=== PATIENT | male | born 1940 | race Caucasian/White ===

== ENCOUNTER 2016-07-07 14:02 | Emergency (ER) | payer MEDICARE, BC ==
[~2016-07-07] VITALS: Ht 182.9 cm; Wt 87.0 kg
[~2016-07-07 14:02] MED LIST: ASPI325T PO; METO25TA3 PO; PLAV75TA29 PO; SIMV40TA PO; VITA100064 PO
[2016-07-07 14:08] VITALS: BP_SYST 185; BP_DIAS 11; BP_DIAS 114; PULSE 94; RESP 17; TEMP 98.3; O2SAT 98
[2016-07-07] MEDS ORDERED: PLAV75TA29 PO (14:18)
[2016-07-07] MEDS ORDERED: ASPI1TAB69 PO (14:29)
[2016-07-07] MEDS ORDERED: TETANUS/DIPHTHERIA TOXOID ADULT 0.5 ML VIAL IM ONE (14:30)
[2016-07-07] MEDS ORDERED: LIDOCAINE 1%/EPINEPHrine 1:100,000 SOLN 20 ML VIAL INFIL ONE (14:30)
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
[2016-07-07 15:19] LABS: AUTOMATED NEUTROPHIL # 4.8 TH/MM3 (1.8-7.7); BASOPHIL % 0.4 % (0.0-2.0); EOSINOPHIL # 0.2 TH/MM3 (0-0.4); EOSINOPHIL % 2.3 % (0.0-4.0); HEMATOCRIT 40.1 % (39.0-51.0); HEMO FLAGS DIFF FINAL; LYMPHOCYTE # 1.9 TH/MM3 (1.0-4.8); MEAN CELL VOLUME 94.3 FL (80.0-100.0); MEAN CORPUSCULAR HEMOGLOBIN 31.3 PG (27.0-34.0); MEAN CORPUSCULAR HGB CONC 33.2 % (32.0-36.0); MONO % 7.5 % (0.0-8.0); NEUT % 63.8 % (16.0-70.0); PLATELET COUNT 139 TH/MM3 (150-450); RED BLOOD COUNT 4.26 MIL/MM3 (4.50-5.90); RED CELL DISTRIBUTION WIDTH 13.5 % (11.6-17.2); WHITE BLOOD COUNT 7.5 TH/MM3 (4.0-11.0)
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
--- NOTE | 2016-07-07 15:27 | RADRPT ---
EXAM DATE/TIME: 07/07/2016 15:11 [facility] COMPARISON: No previous studies available for comparison. INDICATIONS : Left knee laceration from fall. MEDICAL HISTORY : None. SURGICAL HISTORY : None. ENCOUNTER: Initial ACUITY: 1 day PAIN SCORE: 0/10 LOCATION: Left knee. FINDINGS: There is no evidence for fracture, radiopaque foreign body or intra-articular air. Moderate vascular chest is noted. CONCLUSION: Negative for foreign body or fracture. Percy Rocha MD FACR on July 07, 2016 at 15:25 Board Certified Radiologist. This report was verified electronically.
--- NOTE | 2016-07-07 15:28 | RADRPT ---
EXAM DATE/TIME: 07/07/2016 15:06 [facility] COMPARISON: No previous studies available for comparison. INDICATIONS : Chest pain. MEDICAL HISTORY : None. SURGICAL HISTORY : CABG. Stent. ENCOUNTER: Initial ACUITY: 1 day PAIN SCORE: 5/10 LOCATION: Bilateral chest FINDINGS: The heart is enlarged. Very mild interstitial edema is present. There is no alveolar consolidation, pleural effusion or pneumothorax. Degenerative changes are seen about both shoulders. CONCLUSION: CARDIOMEGALY WITH MILD INTERSTITIAL EDEMA. Percy Rocha MD FACR on July 07, 2016 at 15:26 Board Certified Radiologist. This report was verified electronically.
[2016-07-07 15:31] LABS: PROTHROMBIN TIME - PATIENT 11.6 SEC (9.8-11.6)
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
[2016-07-07 15:56] VITALS: BP 155/67; PULSE 58; RESP 16; O2SAT 96
== END 2016-07-07 17:05 | disposition home or self-care (01) ==
LOC: NEPE 14:02
DX: S09.90XA Unspecified injury of head, initial encounter (principal); S01.112A Laceration without foreign body of left eyelid and periocular area, initial encounter; S80.02XA Contusion of left knee, initial encounter; W17.89XA Other fall from one level to another, initial encounter; V19.3XXA Pedal cyclist (driver) (passenger) injured in unspecified nontraffic accident, initial encounter; Y93.55 Activity, bike riding; Y92.481 Parking lot as the place of occurrence of the external cause; Z79.82 Long term (current) use of aspirin; Z23 Encounter for immunization
CPT/HCPCS: 12011; 70450; 70486; 71010; 72125; 72170; 73564; 85025; 85610; 85730; 90471; 90714

== ENCOUNTER 2016-07-12 15:22 | Emergency (ER) | payer MEDICARE, BC ==
[~2016-07-12] VITALS: Ht 182.9 cm; Wt 85.0 kg
[~2016-07-12 15:22] MED LIST changes: +ASPI1TAB69 PO; -ASPI325T PO
[2016-07-12 15:25] VITALS: BP 190/80; PULSE 59; RESP 14; TEMP 98.2; O2SAT 98
--- NOTE | 2016-07-12 15:55 | PD ---
HPI Chief Complaint: Wound/Suture/Staple Re-Check Time Seen by Provider: 15:54 Travel History International Travel<30 days: No Contact w/Intl Traveler<30days: No Traveled to known affect area: No History of Present Illness HPI 76-year-old male presents to the emergency department for stitches removal. Patient had 3 sutures placed the left eyebrow 5 days ago the emergency department. He denies any complications. No drainage. No fevers. He denies any new falls. He denies any complaints at this time. PFSH Past Medical History Hx Anticoagulant Therapy: Yes (ASA 81 MG , PLAVIX ) Cardiovascular Problems: Yes High Cholesterol: Yes Diabetes: Yes Diminished Hearing: No Hypertension: Yes Past Surgical History Cardiac Surgery: Yes (CABG, stent) Social History Alcohol Use: No Tobacco Use: No Substance Use: No Allergies-Medications (Allergen,Severity, Reaction): Coded Allergies: Alcohol (Verified Allergy, Severe, "MAKES ME CRAZY", 07/12/16) Penicillin (Verified Allergy, Severe, Rash, 07/12/16) Reported Meds & Prescriptions Reported Meds & Active Scripts Active Reported Aspirin 81 Mg Tabdr 162 Mg PO BID Plavix (Clopidogrel Bisulfate) 75 Mg Tab 75 Mg PO DAILY Vitamin D (Cholecalciferol) 1,000 Unit Tab 400 Units PO DAILY Metoprolol Tartrate 25 Mg Tab 25 Mg PO DAILY Simvastatin 40 Mg Tab 40 Mg PO HS Plavix (Clopidogrel Bisulfate) 75 Mg Tab 75 Mg PO DAILY Review of Systems Except as stated in HPI: all other systems reviewed are Neg Physical Exam Narrative GENERAL: Well-developed well-nourished male patient, ambulatory. Afebrile. SKIN: Warm and dry. Patient has healing laceration to the left eyebrow with 3 sutures and Steri-Strips in place. HEAD: Normocephalic. Atraumatic. EYES: No scleral icterus. No injection or drainage. NECK: Supple, trachea midline. No JVD or lymphadenopathy. CARDIOVASCULAR: Regular rate and rhythm without murmurs, gallops, or rubs. RESPIRATORY: Breath sounds equal bilaterally. No accessory muscle use. Lungs sounds are clear to auscultation. MUSCULOSKELETAL: No cyanosis, or edema. Data Data Last Documented VS Vital Signs Date Time Temp Pulse Resp B/P Pulse Ox O2 Delivery O2 Flow Rate FiO2 07/12/16 15:25 98.2 59 14 190/80 98 [facility] Medical Decision Making Medical Screen Exam Complete: Yes Emergency Medical Condition: Yes Medical Record Reviewed: Yes Differential Diagnosis suture removal versus dehiscence versus cellulitis Narrative Course 76-year-old male presents to the emergency department for suture removal. Patient had 3 sutures placed 5 days ago in the emergency department. He denies any complication or other complaints at this time. Sutures removed without difficulty. Patient is instructed on proper wound care. Diagnosis Primary Impression: Visit for suture removal Referrals: Primary Care Physician as needed Patient Instructions: General Instructions, Stitches Removal (ED) Additional Instructions: Clean gently with soap and water twice daily and apply [id number] antibiotic ointment. Follow-up with your primary care physician as needed. Return to the emergency department for any acute worsening of symptoms. Med/Other Pt SpecificInfo: No Change to Meds Disposition: 01 DISCHARGE HOME Condition: Stable Micaela Glaser Jul 12, 2016 15:55
== END 2016-07-12 16:10 | disposition home or self-care (01) ==
LOC: NEPB 15:22
DX: Z48.02 Encounter for removal of sutures (principal)
CPT/HCPCS: 99281

== ENCOUNTER 2016-07-16 14:36 | Emergency (ER) | payer MEDICARE, BC ==
[~2016-07-16] VITALS: Ht 182.9 cm; Wt 86.0 kg
[2016-07-16 14:41] VITALS: BP 203/83; PULSE 59; RESP 18; TEMP 97.7; O2SAT 98
[2016-07-16] MEDS ORDERED: hydrALAZINE HCL 20 MG/ML VIAL IV PUSH ONE (15:30)
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
[2016-07-16 16:52] VITALS: BP 138/63; PULSE 52; RESP 18; O2SAT 95
--- NOTE | 2016-07-16 17:50 | RADRPT ---
EXAM DATE/TIME: 07/16/2016 17:44 [facility] COMPARISON: CT BRAIN W/O CONTRAST, July 07, 2016, 14:54. INDICATIONS : Fall with right sided head hematoma today; multiple recent falls. RADIATION DOSE: 51.47 CTDIvol (mGy) MEDICAL HISTORY : Hypertension. SURGICAL HISTORY : None. ENCOUNTER: Initial ACUITY: 1 day PAIN SCALE: 6/10 LOCATION: Right cranial TECHNIQUE: Multiple contiguous axial images were obtained of the head. Using automated exposure control and adj ustment of the mA and/or kV according to patient size, radiation dose was kept as low as reasonably a chievable to obtain optimal diagnostic quality images. FINDINGS: CEREBRUM: The ventricles are normal for age. No evidence of midline shift, mass lesion, hemorrhage or acute in farction. No extra-axial fluid collections are seen. POSTERIOR FOSSA: The cerebellum and brainstem are intact. The 4th ventricle is midline. The cerebellopontine angle i s unremarkable. EXTRACRANIAL: The visualized portion of the orbits is intact. SKULL: The calvaria is intact. No evidence of skull fracture. CONCLUSION: Normal examination for a patient of this age. No significant change has occurred. Wellington Yee MD on July 16, 2016 at 17:48 Board Certified Radiologist. This report was verified electronically.
[2016-07-16] MEDS ORDERED: ACET325T PO (18:16)
[2016-07-16 18:17] VITALS: BP 169/71; PULSE 56; RESP 18; O2SAT 96
--- NOTE | 2016-07-16 19:18 | EKG ---
Date Performed: 07/16/2016 Time Performed: 16:27:19 PTAGE: 76 years EKG: Significant baseline artifact obscures underlying rhythm SINUS BRADYCARDIA WITH SINUS ARRHY THMIA Versus nonconducted premature atrial contractions WITH FIRST DEGREE AV BLOCK NONSPECIFIC T-WAVE ABNORMALITY ABNORMAL ECG COMPARED TO PRIOR ELECTROCARDIOGRAM, irregular rhythm is present. PREVIOUS TRACING : 05/06/2016 12.15 DOCTOR: Tay Chambers Interpretating Date/Time 07/16/2016 19:17:13
== END 2016-07-16 19:18 | disposition home or self-care (01) ==
LOC: NEPC 14:36
DX: S09.90XA Unspecified injury of head, initial encounter (principal); S00.03XA Contusion of scalp, initial encounter; I10 Essential (primary) hypertension; R94.31 Abnormal electrocardiogram [ECG] [EKG]; I25.10 Atherosclerotic heart disease of native coronary artery without angina pectoris; E78.00 Pure hypercholesterolemia, unspecified; E11.9 Type 2 diabetes mellitus without complications; Z79.01 Long term (current) use of anticoagulants; Z79.82 Long term (current) use of aspirin; Z91.81 History of falling; W18.39XA Other fall on same level, initial encounter; Y92.481 Parking lot as the place of occurrence of the external cause
CPT/HCPCS: 70450; 93005

== ENCOUNTER 2017-05-25 23:03 | Observation (INO) | payer MEDICARE, BC ==
[~2017-05-25] VITALS: Ht 182.9 cm; Wt 70.8 kg
[~2017-05-25 23:03] MED LIST changes: +ACET325T PO
[2017-05-25 23:05] VITALS: BP 184/92; PULSE 74; RESP 16; TEMP 97.8; O2SAT 98
--- NOTE | 2017-05-25 23:36 | PD ---
HPI Chief Complaint: Edema Time Seen by Provider: 23:28 Travel History International Travel<30 days: No Contact w/Intl Traveler<30days: No Traveled to known affect area: No History of Present Illness HPI The patient is a 77 year old male who presents to the [facility] emergency department with a history of reportedly bumping his legs on the coffee table yesterday and having difficulty stopping the bleeding. He reports that he saw his primary care physician, Dr. Laws earlier today and was told to come to the emergency department for evaluation and treatment. The patient lives at home alone. The patient denies having a home health nurse to come out to visit him. He is noted to have lower extremity edema. He reports that this is worse than usual. He denies having any chest pain, chest pressure, or shortness of breath. He denies having any abdominal pain, vomiting, or diarrhea. The patient reports that he is chronically anticoagulated on Xarelto and Plavix. He reports that he's been on Plavix for years, however newly placed on Xarelto 3 months ago. He is unsure why. The patient does have a prior history of stroke approximately 6 months ago with some difficulty speaking related to this. He reports that he does use a walker when he exercises, however otherwise she does not use a cane or walker. On review of systems, the patient denies having any known recent fevers, cough, congestion, neck pain, urinary symptoms, or neurologic symptoms. [facility] Past Medical History Narrative Medical The patient's past medical history is significant for stroke 6 months ago with residual speech problems, CHF, CAD with 3 vessel bypass and a stent placement, history of a valve replacement, hyperlipidemia, diabetes mellitus, hypertension. PcP: Dr. Wesley Laws Thread Clipper: Dr. Díaz. Hx Anticoagulant Therapy: Yes Cardiac Catheterization: Yes Cardiovascular Problems: Yes High Cholesterol: Yes Cerebrovascular Accident: Yes (CVA) Diabetes: Yes Patient Takes Glucophage: No Diminished Hearing: No Hypertension: Yes Musculoskeletal: Yes ([place]) Past Surgical History Narrative Surgical The patient's past surgical history is significant for coronary artery bypass grafting of 3 vessels, history of coronary artery stenting, history of valve replacement. Cardiac Surgery: Yes (VALVE REPLACEMENT) Coronary Artery Bypass Graft: Yes (X4) Coronary Stent: Yes Social History Alcohol Use: No Tobacco Use: No Substance Use: No Allergies-Medications (Allergen,Severity, Reaction): Coded Allergies: alcohol (Unverified Allergy, Severe, "MAKES ME CRAZY", 05/25/17) penicillin G (Unverified Allergy, Severe, Rash, 05/25/17) Reported Meds & Prescriptions Reported Meds & Active Scripts Active Acetaminophen 325 Mg Tab 325 Mg PO Q4-6H PRN Reported Aspirin 81 Mg Tabdr 162 Mg PO BID Vitamin D3 (Cholecalciferol) 1,000 Unit Tab 400 Units PO DAILY Metoprolol Tartrate 25 Mg Tab 25 Mg PO DAILY Simvastatin 40 Mg Tab 40 Mg PO HS Plavix (Clopidogrel Bisulfate) 75 Mg Tab 75 Mg PO DAILY Review of Systems Except as stated in HPI: all other systems reviewed are Neg General / Constitutional: No: Fever Eyes: No: Visual changes HENT: No: Headaches Cardiovascular: Positive: Edema, No: Chest Pain or Discomfort, Dyspnea on exertion Respiratory: No: Cough, Shortness of Breath Gastrointestinal: No: Nausea, Vomiting, Diarrhea, Abdominal Pain, Changes in Bowel Habits, Indigestion, Loss of Appetite Genitourinary: No: Dysuria Musculoskeletal: Positive: Edema, No: Pain Skin: No Rash Neurologic: No: Weakness, Focal Abnormalities, Change in Mentation, Slurred Speech, Sensory Disturbance Psychiatric: No: Depression Endocrine: No: Polydipsia Hematologic/Lymphatic: No: Easy Bruising Physical Exam Narrative General: The patient is a well-developed well-nourished male in no acute distress. Head and Neck exam: Head is normocephalic atraumatic. Eyes: EOMI, pupils are equal round and reactive to light. Nose: Midline septum with pink mucous membranes Mouth: Dentition unremarkable. Moist mucus membranes. Posterior oropharynx is not erythematous. No tonsillar hypertrophy. Uvula midline. Airway patent. Neck: No palpable lymphadenopathy. No nuchal rigidity. No thyromegaly. Cardiovascular: Irregularly irregular with rate control in the 50s to 60s with a 2/6 systolic murmur. No gallops or rubs. Lungs: Clear to auscultation bilaterally. No wheezes, rhonchi, or rales. Abdomen: Soft, without tenderness to palpation in all 4 quadrants of the abdomen. No guarding, rebound, or rigidity. Normal bowel sounds are audible. No tenderness on palpation of McBurney's point. Extremities: No clubbing or cyanosis. The patient has 1-2+ pitting edema bilateral lower extremities. The patient has an abrasion to the right anterior garcía with crusted blood, no active bleeding. 2+ pulses in all 4 extremities. Negative Homans sign. No palpable cords. Back: No costovertebral angle tenderness to palpation. Neurologic Exam: Cranial nerves 2-12 were intact on exam. Strength is 5/5 in all 4 extremities. No sensory deficits noted. The patient is slow to answer questions related to prior speech deficits from a stroke, however the patient is intelligible on examination. Skin Exam: No rash noted. Intact skin that is warm and dry. Data Data Last Documented VS Vital Signs Date Time Temp Pulse Resp B/P (MAP) Pulse Ox O2 Delivery O2 Flow Rate FiO2 05/26/17 02:00 68 16 116/55 (75) 100 Room Air 05/25/17 23:05 97.8 Orders Orders Electrocardiogram (05/25/17 23:34) Complete Blood Count With Diff (05/25/17 23:34) Comprehensive Metabolic Panel (05/25/17 23:34) Creatine Kinase (Cpk) (05/25/17 23:34) Ckmb (Isoenzyme) Profile (05/25/17 23:34) Troponin I (05/25/17 23:34) B-Type Natriuretic Peptide (05/25/17 23:34) Prothrombin Time / Inr (Pt) (05/25/17 23:34) Act Partial Throm Time (Ptt) (05/25/17 23:34) Magnesium (Mg) (05/25/17 23:34) Thyroid Stimulating Hormone (05/25/17 23:34) Chest, Single Ap (05/25/17 23:34) Iv Access Insert/Monitor (05/25/17 23:34) Ecg Monitoring (05/25/17 23:34) Oximetry (05/25/17 23:34) Us Leg Venous Doppler Bilat (05/26/17 23:34) Furosemide Inj (Lasix Inj) (05/26/17 01:30) Admit Order (Ed Use Only) (05/26/17 02:16) Nitroglycerin 2% Oint (Nitroglycerin 2% (05/26/17 02:30) Labs Laboratory Tests Test 05/25/17 23:50 White Blood Count 5.2 TH/MM3 Red Blood Count 3.35 MIL/MM3 Hemoglobin 11.0 GM/DL Hematocrit 32.4 % Mean Corpuscular Volume 96.8 FL Mean Corpuscular Hemoglobin 33.0 PG Mean Corpuscular Hemoglobin Concent 34.1 % Red Cell Distribution Width 14.0 % Platelet Count 165 TH/MM3 Mean Platelet Volume 9.0 FL Neutrophils (%) (Auto) 59.0 % Lymphocytes (%) (Auto) 27.0 % Monocytes (%) (Auto) 9.1 % Eosinophils (%) (Auto) 4.1 % Basophils (%) (Auto) 0.8 % Neutrophils # (Auto) 3.1 TH/MM3 Lymphocytes # (Auto) 1.4 TH/MM3 Monocytes # (Auto) 0.5 TH/MM3 Eosinophils # (Auto) 0.2 TH/MM3 Basophils # (Auto) 0.0 TH/MM3 CBC Comment DIFF FINAL Differential Comment Prothrombin Time 15.3 SEC Prothromb Time International Ratio 1.5 RATIO Activated Partial Thromboplast Time 39.6 SEC Blood Urea Nitrogen 22 MG/DL Creatinine 1.26 MG/DL Random Glucose 93 MG/DL Total Protein 6.3 GM/DL Albumin 3.5 GM/DL Calcium Level 8.5 MG/DL Magnesium Level 2.6 MG/DL Alkaline Phosphatase 63 U/L Aspartate Amino Transf (AST/SGOT) 25 U/L Alanine Aminotransferase (ALT/SGPT) 26 U/L Total Bilirubin 0.4 MG/DL Sodium Level 141 MEQ/L Potassium Level 4.7 MEQ/L Chloride Level 106 MEQ/L Carbon Dioxide Level 27.8 MEQ/L Anion Gap 7 MEQ/L Estimat Glomerular Filtration Rate 55 ML/MIN Total Creatine Kinase 66 U/L Troponin I LESS THAN 0.02 NG/ML B-Type Natriuretic Peptide 405 PG/ML Thyroid Stimulating Hormone 3rd Gen 1.710 uIU/ML MDM Medical Decision Making Medical Screen Exam Complete: Yes Emergency Medical Condition: Yes Medical Record Reviewed: Yes Interpretation(s) Last Impressions Chest X-Ray 05/25/17 [id number] Signed Impressions: Service Date/Time: Thursday, May 25, 2017 23:49 - CONCLUSION: Single view rotated exam demonstrating no definite acute cardiopulmonary disease. René Mayberry MD Differential Diagnosis CHF exacerbation, versus DVT, versus hypoalbuminemia, versus valvular abnormality of the veins of the legs causing peripheral edema Narrative Course During the course of the patients emergency department visit, the patients history, examination, and differential diagnosis were reviewed with the patient. The patient was placed on a cardiac exercise specialist with oximetry and frequent blood pressure monitoring. The patient had IV access obtained and blood work sent for analysis. The patient had an ECG done on arrival. The patient's ECG reveals atrial fibrillation with a slow ventricular response at 59, nonspecific T-wave abnormalities, no acute ST segment elevation. QRS duration is 98 ms, QTC 435 ms. an ultrasound of bilateral lower extremities was ordered. A chest x -ray was ordered. The patient was initially provided Lasix 40 mg IV. The patients laboratory studies were reviewed and remarkable for a CMP that shows a BUN of 22, GFR 55, magnesium 2.6, initial set of cardiac enzymes are within normal limits, BNP is elevated at 405, TSH 1.71, PT 15.3, PTT 39.6. A CBC that is remarkable for hemoglobin of 11, monocytes 9.1 Radiology studies were reviewed and remarkable for a chest x-ray that shows no acute cardiopulmonary disease. An ultrasound that shows no evidence of DVT bilaterally. The patients results were discussed with the patient, including the plan of care. I explained that further testing and/ or monitoring is indicated based on the patients history, examination, and/ or laboratory findings. Therefore, I recommended admission for additional evaluation. The patient expressed understanding and was agreeable with this plan. The patient was admitted to the hospital in stable condition and sent to a bed under the care of the [facility] service. Physician Communication Physician Communication The patient's case including history, pertinent physical examination findings, and laboratory studies were discussed with Dr. Tobar. It was agreed that the patient would be admitted to the [facility] service. Diagnosis Primary Impression: A-fib Qualified Codes: I48.91 - Unspecified atrial fibrillation Additional Impression: Acute exacerbation of congestive heart failure Qualified Codes: I50.9 - Heart failure, unspecified Admitting Information Admitting Physician Requests: Cathy Martinez MD May 25, 2017 23:36
[2017-05-26] VITALS (8 sets, daily range): BP systolic 113–147; BP diastolic 55–67; PULSE 49–71; RESP 16–20; TEMP 97.1–98.4; O2SAT 96–100
[2017-05-26 00:01] LABS: AUTOMATED NEUTROPHIL # 3.1 TH/MM3 (1.8-7.7); BASOPHIL % 0.8 % (0.0-2.0); EOSINOPHIL # 0.2 TH/MM3 (0-0.4); EOSINOPHIL % 4.1 % (0.0-4.0); HEMATOCRIT 32.4 % (39.0-51.0); HEMO FLAGS DIFF FINAL; LYMPHOCYTE # 1.4 TH/MM3 (1.0-4.8); MEAN CELL VOLUME 96.8 FL (80.0-100.0); MEAN CORPUSCULAR HGB CONC 34.1 % (32.0-36.0); MONO % 9.1 % (0.0-8.0); PLATELET COUNT 165 TH/MM3 (150-450); RED BLOOD COUNT 3.35 MIL/MM3 (4.50-5.90); WHITE BLOOD COUNT 5.2 TH/MM3 (4.0-11.0)
[2017-05-26 00:10] LABS: APTT (PATIENT) 39.6 SEC (24.3-30.1); INTERNATIONAL NORMALIZED RATIO 1.5 RATIO; PROTHROMBIN TIME - PATIENT 15.3 SEC (9.8-11.6)
--- NOTE | 2017-05-26 00:11 | RADRPT ---
EXAM DATE/TIME: 05/25/2017 23:49 [facility] COMPARISON: CHEST SINGLE AP, July 07, 2016, 15:06. INDICATIONS : Chest pain and swelling MEDICAL HISTORY : Hypertension. SURGICAL HISTORY : None. ENCOUNTER: Initial ACUITY: 1 day PAIN SCORE: 7/10 LOCATION: Bilateral chest FINDINGS: A single view of the chest demonstrates the lungs to be symmetrically aerated without evidence of mas s, infiltrate or effusion. The cardiomediastinal contours are unremarkable. Osseous structures are intact. The patient is status post median sternotomy for bypass grafting procedure. Artificial heart valve is present. Patient is mildly rotated to the left. CONCLUSION: Single view rotated exam demonstrating no definite acute cardiopulmonary disease. René Mayberry MD on May 26, 2017 at 0:09 Board Certified Radiologist. This report was verified electronically.
[2017-05-26 00:21] LABS: ALT (GPT) 26 U/L (12-78); ANION GAP 7 MEQ/L (5-15); AST (GOT) 25 U/L (15-37); BICARBONATE 27.8 MEQ/L (21.0-32.0); BLOOD UREA NITROGEN 22 MG/DL (7-18); CHLORIDE 106 MEQ/L (98-107); GLOMERULAR FILTRATION RATE 55 ML/MIN (>89); MAGNESIUM 2.6 MG/DL (1.5-2.5); POTASSIUM 4.7 MEQ/L (3.5-5.1); SODIUM (NA) 141 MEQ/L (136-145)
[2017-05-26 00:36] LABS: ALKALINE PHOSPHATASE 63 U/L (45-117); CREATINE KINASE 66 U/L (39-308); TOTAL BILIRUBIN ADULT 0.4 MG/DL (0.2-1.0)
--- NOTE | 2017-05-26 01:09 | RADRPT ---
EXAM DATE/TIME: 05/26/2017 00:40 [facility] COMPARISON: No previous studies available for comparison. INDICATIONS : Bilateral leg swelling. MEDICAL HISTORY : Hypercholesterolemia. Hypertension. CVA. Diabetes. Anticoagulant therapy, Xarelto. SURGICAL HISTORY : CABGCoronary artery stent. Cardiac cath. Valve replacement. ENCOUNTER: Initial ACUITY: 1 day PAIN SCORE: 0/10 LOCATION: Bilateral leg. TECHNIQUE: Venous ultrasound of the left and right leg was performed from the inguinal ligament to the proximal calf. Real-time, color Doppler and spectral tracing, compression and augmentation techniques were us ed. FINDINGS: RIGHT LEG: There is normal compressibility of the deep venous system from the inguinal region to the proximal ca lf. No echogenic clot is seen in the lumen of the common femoral, femoral, popliteal, and posterior tibial veins. There is a normal response of the venous system to proximal and distal augmentation an d respiration. LEFT LEG: There is normal compressibility of the deep venous system from the inguinal region to the proximal ca lf. No echogenic clot is seen in the lumen of the common femoral, femoral, popliteal, and posterior tibial veins. There is a normal response of the venous system to proximal and distal augmentation an d respiration. CONCLUSION: No deep venous thrombosis. René Mayberry MD on May 26, 2017 at 1:07 Board Certified Radiologist. This report was verified electronically.
[2017-05-26] MEDS ORDERED: FUROSEMIDE 40 MG/4 ML VIAL IV PUSH ONE (01:30)
[2017-05-26] MEDS ORDERED: MAGNESIUM HYDROXIDE SUSP 30 ML CUP PO PRN (02:30)
[2017-05-26] MEDS ORDERED: MORPHINE SULFATE 4 MG/ML INJ IV PUSH PRN (02:30)
[2017-05-26] MEDS ORDERED: SENNOSIDES 8.6 MG TAB PO PRN (02:30)
[2017-05-26] MEDS ORDERED: ACETAMINOPHEN 325 MG TAB PO PRN (02:30)
[2017-05-26] MEDS ORDERED: NITROGLYCERIN 2% OINT 1 GM PACKET TOPICAL ONE (02:30)
[2017-05-26] MEDS ORDERED: ACETAMINOPHEN/HYDROcodone 325 MG/5 MG TAB PO PRN (02:30)
[2017-05-26] MEDS ORDERED: LACTULOSE SYRUP 20 GM/30 ML CUP PO PRN (02:30)
[2017-05-26] MEDS ORDERED: BISACODYL 10 MG SUPP RECTAL PRN (02:30)
[2017-05-26] MEDS ORDERED: SODIUM CHLORIDE 0.9% FLUSH 10 ML FLUSH IV FLUSH PRN (02:30)
[2017-05-26] MEDS ORDERED: ONDANSETRON HCL 4 MG/2 ML VIAL IVP PRN (02:30)
--- NOTE | 2017-05-26 02:39 | HHI.HP ---
[facility] ([place] Mai Laws MD Admission Diagnosis ChF exacerbation, afib Diagnoses: (1) CHF (congestive heart failure) Diagnosis: Principal (2) A-fib Diagnosis: Principal (3) HTN (hypertension) Diagnosis: Principal Travel History International Travel<30 Days: No Contact w/Intl Traveler <30 Da: No Traveled to Known Affected Are: No History of Present Illness This is a 77-year-old male with a PMH of HTN, A-fib on Xarelto, CHF (Unknown EF) , CAD, h/o CVA w/ Expressive Aphasia and DM who presented to the ER w/ complaints of bilateral lower extremity edema x2 days, seen by PCP and referred to the ER for further eval. States he follows w/ Dr. Díaz as outpatient, started on Xarelto few months ago for h/o A-fib, no other changes to medications. No c/o chest pain or SOB. On arrival, pt noted to be in A-fib, rate controlled. BP 184/92, HR 74, O2 sat 98% on RA, Afebrile. Chemistry at baseline. Troponin 0.02. BNP 405. INR 1.5. CXR with no acute findings. LE Doppler negative for DVT. S/p Lasix IV in ER. Review of Systems Except as stated in HPI: all other systems reviewed are Neg ROS: 14 point review of systems otherwise negative. Past Family Social History Past Medical History PMH: HTN, A-fib on Xarelto, CHF (Unknown EF), CAD, h/o CVA w/ Expressive Aphasia and DM Past Surgical History PAST SURGICAL HISTORY: Valve Replacement, CABG Allergies: Coded Allergies: alcohol (Unverified Allergy, Severe, "MAKES ME CRAZY", 05/25/17) penicillin G (Unverified Allergy, Severe, Rash, 05/25/17) Family History PAST FAMILY HISTORY: Reviewed. No h/o DM or CAD Social History PAST SOCIAL HISTORY: Negative for alcohol, tobacco or drugs. Physical Exam Vital Signs Vital Signs Date Time Temp Pulse Resp B/P (MAP) Pulse Ox O2 Delivery O2 Flow Rate FiO2 05/25/17 23:05 97.8 74 16 184/92 (122 98 Physical Exam PE: GENERAL: Elderly white male in no acute distress, slow to speak +expressive aphasia, at baseline. HEENT: PERRLA, EOMI. No scleral icterus or conjunctival pallor. No lid lag or facial droop. CARDIOVASCULAR: Regular rate and rhythm. No obvious murmurs to auscultation. No chest tenderness to palpation. RESPIRATORY: No obvious rhonchi or wheezing. Clear to auscultation. Breath sounds equal bilaterally. GASTROINTESTINAL: Abdomen soft, non-tender, nondistended. BS normal. MUSCULOSKELETAL: Extremities without clubbing, cyanosis. 2+ edema. No obvious deformities. NEUROLOGICAL: Awake, alert and oriented x4. No focal neurologic deficits. Moving both upper and lower extremities spontaneously. Laboratory Laboratory Tests Test 05/25/17 23:50 White Blood Count 5.2 Red Blood Count 3.35 Hemoglobin 11.0 Hematocrit 32.4 Mean Corpuscular Volume 96.8 Mean Corpuscular Hemoglobin 33.0 Mean Corpuscular Hemoglobin Concent 34.1 Red Cell Distribution Width 14.0 Platelet Count 165 Mean Platelet Volume 9.0 Neutrophils (%) (Auto) 59.0 Lymphocytes (%) (Auto) 27.0 Monocytes (%) (Auto) 9.1 Eosinophils (%) (Auto) 4.1 Basophils (%) (Auto) 0.8 Neutrophils # (Auto) 3.1 Lymphocytes # (Auto) 1.4 Monocytes # (Auto) 0.5 Eosinophils # (Auto) 0.2 Basophils # (Auto) 0.0 CBC Comment DIFF FINAL Differential Comment Prothrombin Time 15.3 Prothromb Time International Ratio 1.5 Activated Partial Thromboplast Time 39.6 Blood Urea Nitrogen 22 Creatinine 1.26 Random Glucose 93 Total Protein 6.3 Albumin 3.5 Calcium Level 8.5 Magnesium Level 2.6 Alkaline Phosphatase 63 Aspartate Amino Transf (AST/SGOT) 25 Alanine Aminotransferase (ALT/SGPT) 26 Total Bilirubin 0.4 Sodium Level 141 Potassium Level 4.7 Chloride Level 106 Carbon Dioxide Level 27.8 Anion Gap 7 Estimat Glomerular Filtration Rate 55 Total Creatine Kinase 66 Troponin I LESS THAN 0.02 B-Type Natriuretic Peptide 405 Thyroid Stimulating Hormone 3rd Gen 1.710 Result Diagram: 05/25/17234905/25/172349 Caprini VTE Risk Assessment Caprini VTE Risk Assessment: Mod/High Risk (score >= 2) Caprini Risk Assessment Model Point Value = 1 Point Value = 2 Point Value = 3 Point Value = 5 Age 41-60 Minor surgery BMI > 25 kg/m2 Swollen legs Varicose veins or History of unexplained or recurrent spontaneous Oral contraceptives or hormone replacement Sepsis (< 1 month) Serious lung disease, including pneumonia (< 1 month) Abnormal pulmonary function Acute myocardial infarction Congestive heart failure (< 1 month) History of inflammatory bowel disease Medical patient at bed rest Age 61-74 Arthroscopic surgery Major open surgery (> 45 min) Laparoscopic surgery (> 45 min) Malignancy Confined to bed (> 72 hours) Immobilizing plaster cast Central venous access Age >= 75 History of VTE Family history of VTE Factor V Leiden Prothrombin [id number] Lupus anticoagulant Anticardiolipin antibodies Elevated serum homocysteine Heparin-induced thrombocytopenia Other congenital or acquired thrombophilia Stroke (< 1 month) Elective arthroplasty Hip, pelvis, or leg fracture Acute spinal cord injury (< 1 month) Prophylaxis Regimen Total Risk Factor Score Risk Level Prophylaxis Regimen 0-1 Low Early ambulation 2 Moderate Order ONE of the following: *Sequential Compression Device (SCD) *Heparin 5000 units SQ BID 3-4 Higher Order ONE of the following medications: *Heparin 5000 units SQ TID *Enoxaparin/Lovenox 40 mg SQ daily (WT < 150 kg, CrCl > 30 mL/min) *Enoxaparin/Lovenox 30 mg SQ daily (WT < 150 kg, CrCl > 10-29 mL/min) *Enoxaparin/Lovenox 30 mg SQ BID (WT < 150 kg, CrCl > 30 mL/min) AND/OR *Sequential Compression Device (SCD) 5 or more Highest Order ONE of the following medications: *Heparin 5000 units SQ TID (Preferred with Epidurals) *Enoxaparin/Lovenox 40 mg SQ daily (WT < 150 kg, CrCl > 30 mL/min) *Enoxaparin/Lovenox 30 mg SQ daily (WT < 150 kg, CrCl > 10-29 mL/min) *Enoxaparin/Lovenox 30 mg SQ BID (WT < 150 kg, CrCl > 30 mL/min) AND *Sequential Compression Device (SCD) Assessment and Plan Problem List: (1) CHF (congestive heart failure) ICD Code: I50.9 - Heart failure, unspecified (2) A-fib ICD Code: I48.91 - Unspecified atrial fibrillation (3) HTN (hypertension) ICD Code: I10 - Essential (primary) hypertension Assessment and Plan A/P: 1. CHF: Acute on Chronic. Unknown EF. BNP 405, +lower extremity edema, CXR w / no acute findings, images reviewed by me. Check Echo. S/p Lasix in ER, continue w/ diuresis, monitor I/O. 2. A-fib: Chronic. Rate controlled. Currently on Xarelto. While in ER, HR 40-50's, will hold Metoprolol for now. Follows w/ Dr. Díaz as outpatient, consult for further evaluation. 3. HTN: BP 184/92, HR 74 on arrival, monitor BP. 4. DVT Prophylaxis: Resume home Xarelto 5. Social work for d/c planning as needed. 6. Case discussed w/ ER physician at length. Daksha Tobar MD May 26, 2017 02:39
[2017-05-26] MEDS ORDERED: DEXTROSE 50% IN WATER 50 ML VIAL(D50) IV PUSH PRN (05:15)
[2017-05-26] MEDS ORDERED: GLUCAGON 1 MG/ML VIAL OTHER PRN (05:15)
[2017-05-26] MEDS: SODIUM CHLORIDE 0.9% FLUSH 10 ML FLUSH IV FLUSH SCH ×2 (09:00→21:00)
[2017-05-26] MEDS ORDERED: RIVAROXABAN 10 MG TAB PO SCH (09:00)
[2017-05-26] MEDS: DOCUSATE SODIUM 50 MG/SENNA 8.6 MG TAB PO SCH (09:33)
--- NOTE | 2017-05-26 14:26 | PD.CONS ---
HPI Service Cardiology Consult Requested By Dr Tobar Reason for Consult Atrial fibrillation Primary Care Physician Robert Laws MD (Vipin) History of Present Illness The patient is a 77 year old male with a cardiac history of stroke, atrial fibrillation, carotid stenosis, ASHD, moderate AI and AVR. The patient presented to the hospital for difficulty stopping bleeding after hitting his leg on the coffee table. Per the patient, he was taking Plavix and Xarelto. Per our records from the office, he was prescribed Xarelto and Plavix had been discontinued. The patient live at home and doses his own medications. The patient also complained of BLE edema. Work up revealed increased increased BNP. HR was noted to be low and metoprolol was stopped. Today, on evaluation, his primary complaint is BLE edema. He denies CP or SOB. H/H stable. (Mary Delgado) Review of Systems Consitutional: DENIES: Fatigue, Fever, Chills, Weight gain, Weight loss Eyes: DENIES: Amaurosis Fugax, Change in vision HEENT: DENIES: Lightheadedness, Change in hearing Respiratory: DENIES: See HPI, Cough, Snoring, Shortness of breath, Wheezing, Sputum production Cardiovascular: DENIES: See HPI, Chest pain, Palpitations, Syncope, Tachycardia Gastrointestinal: DENIES: Nausea, Vomiting, Change in bowel habits, Reflux, Bloody stools, Melena Genitourinary: DENIES: Urinary incontinence, Difficulty voiding Integumentary: DENIES: Rash Neurologic: DENIES: Tingling or numbness, Memory problems, Poor Balance, Stroke symptoms Musculoskeletal: DENIES: Joint pain, Muscle pain, Limited range of motion, Back pain Psychiatric: DENIES: Anxiety, Depression, Sleep disturbances Hematologic: COMPLAINS OF: Bleeding tendencies, DENIES: Bruising tendencies Endocrine: DENIES: Weight gain, Weight loss, Thyroid disease (Mary Delgado ) Past Family Social History Allergies: Coded Allergies: alcohol (Unverified Allergy, Severe, "MAKES ME CRAZY", 05/25/17) penicillin G (Unverified Allergy, Severe, Rash, 05/25/17) Past Medical History ASHD AVR AI HTN Carotid stenosis Stroke Atrial fibrillation Angina HLD Past Surgical History CABG 2004 adn 2013 AVR 2013 stent 2010 Reported Medications Reported Meds & Active Scripts Active Acetaminophen 325 Mg Tab 325 Mg PO Q4-6H PRN Reported Aspirin 81 Mg Tabdr 162 Mg PO BID Vitamin D3 (Cholecalciferol) 1,000 Unit Tab 400 Units PO DAILY Metoprolol Tartrate 25 Mg Tab 25 Mg PO DAILY Simvastatin 40 Mg Tab 40 Mg PO HS Plavix (Clopidogrel Bisulfate) 75 Mg Tab 75 Mg PO DAILY Active Ordered Medications Current Medications Medications (Trade) Dose Ordered Sig/Mark Route Start Time Stop Time Status Last Admin (Xarelto) 10 mg DAILY PO 05/26/17 09:00 05/26/17 09:33 (NS Flush) 2 ml UNSCH PRN IV FLUSH 05/26/17 02:30 (NS Flush) 2 ml BID IV FLUSH 05/26/17 09:00 05/26/17 09:00 (Zofran Inj) 4 mg Q6H PRN IVP 05/26/17 02:30 (Tylenol) 650 mg Q6H PRN PO 05/26/17 02:30 ([place] 5-325 Mg) 1 tab Q4H PRN PO 05/26/17 02:30 (Morphine Inj) 2 mg Q3H PRN IV PUSH 05/26/17 02:30 (Ilda-Colace) 1 tab BID PO 05/26/17 09:00 05/26/17 09:33 (Milk Of Magnesia Liq) 30 ml Q12H PRN PO 05/26/17 02:30 (Senokot) 17.2 mg Q12H PRN PO 05/26/17 02:30 (Dulcolax Supp) 10 mg DAILY PRN RECTAL 05/26/17 02:30 (Lactulose Liq) 30 ml DAILY PRN PO 05/26/17 02:30 (Pravachol) 80 mg HS PO 05/26/17 21:00 (D50w (Vial) Inj) 50 ml UNSCH PRN IV PUSH 05/26/17 05:15 (Glucagon Inj) 1 mg UNSCH PRN OTHER 05/26/17 05:15 (Pneumovax-23 Inj) 25 mcg ONCE ONCE IM 05/27/17 10:00 05/27/17 10:01 Family History non contributory Social History lives alone No ETOH or smoking (Mary Delgado) Physical Exam Vital Signs Vital Signs Date Time Temp Pulse Resp B/P (MAP) Pulse Ox O2 Delivery O2 Flow Rate FiO2 05/26/17 12:36 97.1 62 18 126/60 (82) 99 05/26/17 08:37 97.2 57 18 147/67 (93) 98 05/26/17 04:15 97.5 64 18 113/55 (74) 99 05/26/17 04:00 05/26/17 03:00 65 16 147/67 (93) 100 Room Air 05/26/17 02:00 68 16 116/55 (75) 100 Room Air 05/26/17 01:00 49 16 130/60 (83) 100 Room Air 05/25/17 23:05 97.8 74 16 184/92 (122) 98 Physical Exam GENERAL: Elderly male sitting u pin thechair SKIN: Warm and dry. HEAD: Atraumatic. Normocephalic. EYES: Pupils equal and round. No scleral icterus. ENT: No nasal bleeding or discharge. NECK: Trachea midline. CARDIOVASCULAR: Irreg irreg, BLE edema 1+ RESPIRATORY: No accessory muscle use. Clear to auscultation. Breath sounds equal bilaterally. GASTROINTESTINAL: Abdomen soft, non-tender, nondistended. MUSCULOSKELETAL: Extremities without clubbing, cyanosis, NEUROLOGICAL: Awake and alert. Aphasia PSYCHIATRIC: Appropriate mood and affect; insight and judgment normal. Laboratory Laboratory Tests Test 05/25/17 23:50 05/26/17 07:03 05/26/17 12:10 White Blood Count 5.2 Red Blood Count 3.35 Hemoglobin 11.0 Hematocrit 32.4 Mean Corpuscular Volume 96.8 Mean Corpuscular Hemoglobin 33.0 Mean Corpuscular Hemoglobin Concent 34.1 Red Cell Distribution Width 14.0 Platelet Count 165 Mean Platelet Volume 9.0 Neutrophils (%) (Auto) 59.0 Lymphocytes (%) (Auto) 27.0 Monocytes (%) (Auto) 9.1 Eosinophils (%) (Auto) 4.1 Basophils (%) (Auto) 0.8 Neutrophils # (Auto) 3.1 Lymphocytes # (Auto) 1.4 Monocytes # (Auto) 0.5 Eosinophils # (Auto) 0.2 Basophils # (Auto) 0.0 CBC Comment DIFF FINAL Differential Comment Prothrombin Time 15.3 Prothromb Time International Ratio 1.5 Activated Partial Thromboplast Time 39.6 Blood Urea Nitrogen 22 Creatinine 1.26 Random Glucose 93 Total Protein 6.3 Albumin 3.5 Calcium Level 8.5 Magnesium Level 2.6 Alkaline Phosphatase 63 Aspartate Amino Transf (AST/SGOT) 25 Alanine Aminotransferase (ALT/SGPT) 26 Total Bilirubin 0.4 Sodium Level 141 Potassium Level 4.7 Chloride Level 106 Carbon Dioxide Level 27.8 Anion Gap 7 Estimat Glomerular Filtration Rate 55 Total Creatine Kinase 66 Troponin I LESS THAN 0.02 LESS THAN 0.02 LESS THAN 0.02 B-Type Natriuretic Peptide 405 Thyroid Stimulating Hormone 3rd Gen 1.710 (Mary Delgado) Result Diagram: 05/25/17234905/25/172349 Imaging Last 72 hours Impressions Lower Extremity Ultrasound 05/26/172333 Signed Impressions: Service Date/Time: Friday, May 26, 2017 00:40 - CONCLUSION: No deep venous thrombosis. René Mayberry MD Chest X-Ray 05/25/172333 Signed Impressions: Service Date/Time: Thursday, May 25, 2017 23:49 - CONCLUSION: Single view rotated exam demonstrating no definite acute cardiopulmonary disease. René Mayberry MD (Mary Delgado) Assessment and Plan Assessment and Plan Atrial fibrillation and carotid stenosis with history of stroke Iatrogenic bradycardia, HR improved since metoprolol discontinued New diastolic CHF exacerbation ASHD AVR Moderate AI EF 52% 11/2016 PLAN: Continue Xarelto 15 mg PO daily Continue Lasix 20 mg daily Follow up BMP We will follow up with patient in 1-2 weeks after discharge. The patient needs home health care. Concerned about medication reconciliation and compliance. The patient was seen and evaluated by Dr Díaz who completed face to face encounter, physical exam and participated in evaluation and management. (Mary Delgado) Assessment and Plan The exam, history, and the medical decision-making described in the above note were completed with the assistance of the mid-level provider. I reviewed and agree with the findings presented. I attest that I had a [id number] encounter with the patient on the same day, and personally performed and documented my assessment and findings in the medical record. Frail male, mild confusion /h/o of stroke. (Brett Díaz MD) Mary Delgado May 26, 2017 14:26 Brett Díaz MD May 27, 2017 14:44
--- NOTE | 2017-05-26 18:20 | EKG ---
Date Performed: 05/25/2017 Time Performed: 23:46:40 PTAGE: 77 years EKG: ATRIAL FIBRILLATION WITH SLOW VENTRICULAR RESPONSE NONSPECIFIC T-WAVE ABNORMALITY ABNORMAL RHYTHM ECG Compared to PREVIOUS TRACING , patient now converted to atrial fibrillation. PREVIOUS TRACIN2016 16.27 DOCTOR: Brett Díaz Interpretating Date/Time 05/26/2017 18:19:20
[2017-05-26] MEDS ORDERED: PRAVASTATIN SOD 80 MG TAB PO SCH (21:00)
[2017-05-27] MEDS: DOCUSATE SODIUM 50 MG/SENNA 8.6 MG TAB PO SCH ×2 (00:05→08:25)
[2017-05-27 00:12] VITALS: BP 145/65; PULSE 58; RESP 17; TEMP 98.2; O2SAT 96
[2017-05-27 01:08] VITALS: BP 165/78; PULSE 83; RESP 18; TEMP 98; O2SAT 97
[2017-05-27 01:14] VITALS: PULSE 63
[2017-05-27] MEDS ORDERED: NITROGLYCERIN 0.4 MG SL 25 TABS/BTL SL PRN (01:30)
[2017-05-27 02:15] LABS: AUTOMATED NEUTROPHIL # 3.2 TH/MM3 (1.8-7.7); BASOPHIL % 0.4 % (0.0-2.0); EOSINOPHIL # 0.3 TH/MM3 (0-0.4); EOSINOPHIL % 5.9 % (0.0-4.0); HEMATOCRIT 34.4 % (39.0-51.0); HEMO FLAGS DIFF FINAL; MEAN CORPUSCULAR HEMOGLOBIN 32.5 PG (27.0-34.0); MEAN CORPUSCULAR HGB CONC 33.9 % (32.0-36.0); MONO % 7.6 % (0.0-8.0); NEUT % 65.1 % (16.0-70.0); PLATELET COUNT 167 TH/MM3 (150-450); RED BLOOD COUNT 3.58 MIL/MM3 (4.50-5.90); RED CELL DISTRIBUTION WIDTH 14.1 % (11.6-17.2); WHITE BLOOD COUNT 4.9 TH/MM3 (4.0-11.0)
[2017-05-27 02:38] LABS: ALT (GPT) 22 U/L (12-78); ANION GAP 6 MEQ/L (5-15); AST (GOT) 19 U/L (15-37); BICARBONATE 31.1 MEQ/L (21.0-32.0); BLOOD UREA NITROGEN 21 MG/DL (7-18); CHLORIDE 104 MEQ/L (98-107); GLOMERULAR FILTRATION RATE 56 ML/MIN (>89); SODIUM (NA) 141 MEQ/L (136-145)
[2017-05-27 02:41] LABS: ALKALINE PHOSPHATASE 68 U/L (45-117); TOTAL BILIRUBIN ADULT 0.5 MG/DL (0.2-1.0)
[2017-05-27 02:43] LABS: CREATINE KINASE 44 U/L (39-308)
[2017-05-27 04:30] VITALS: BP 143/65; PULSE 77; RESP 17; TEMP 98.4; O2SAT 96
[2017-05-27] MEDS: SODIUM CHLORIDE 0.9% FLUSH 10 ML FLUSH IV FLUSH SCH (08:23)
[2017-05-27] MEDS ORDERED: FUROSEMIDE 20 MG TAB PO SCH (09:00)
[2017-05-27] MEDS ORDERED: RIVAROXABAN 15 MG TAB PO SCH (09:00)
--- NOTE | 2017-05-27 09:06 | HHI.FF ---
Face to Face Verification Diagnosis: (1) CHF (congestive heart failure) (2) A-fib (3) HTN (hypertension) (4) Diastolic CHF Physical Therapy Order: Evaluate and Treat, Improve ambulation, Strength and gait training Home Health Nursing Order: Medical education Signs/symptoms of disease process CHF education Medication education-adverse effect Nursing assessment with vital signs I have seen patient Bryan Albarran on 05/27/17. My clinical findings support the need for the requested home health care services because: Med compliance is questionable Limited ability to care for self Need for psychosocial assistance I certify that my clinical findings support that this patient is homebound because: Need for psychosocial assistance Poor cardiac reserve Frank Jefferson MD May 27, 2017 09:06
[2017-05-27 09:10] VITALS: BP 146/67; PULSE 71; RESP 18; TEMP 98; O2SAT 98
[2017-05-27] MEDS ORDERED: PNEUMOCOCCAL POLYVALENT INJ 25 MCG/0.5 ML SYR IM ONE (10:00)
[2017-05-27] MEDS ORDERED: XARE15TA PO (12:03)
[2017-05-27] MEDS ORDERED: ASPI1TAB57 PO (12:03)
[2017-05-27] MEDS ORDERED: FURO20TA PO (12:03)
--- NOTE | 2017-05-27 12:04 | HHI.PR ---
Subjective Remarks Patient reports he is feeling much better. He agreed to have home health care. Objective Vitals Vital Signs Date Time Temp Pulse Resp B/P (MAP) Pulse Ox O2 Delivery O2 Flow Rate FiO2 05/27/17 09:10 98.0 71 18 146/67 (93) 98 05/27/17 04:30 98.4 77 17 143/65 (91) 96 05/27/17 01:14 63 05/27/17 01:08 98.0 83 18 165/78 (107) 97 05/27/17 00:12 98.2 58 17 145/65 (91) 96 05/26/17 20:30 98.4 71 17 141/63 (89) 96 05/26/17 16:50 97.9 62 20 123/59 (80) 100 05/26/17 12:36 97.1 62 18 126/60 (82) 99 I/O 05/26/17 05/26/17 05/26/17 05/27/17 05/27/17 05/27/17 07:00 15:00 23:00 07:00 15:00 23:00 Intake Total 480 ml 240 ml 240 ml Output Total 1800 ml Balance -1320 ml 240 ml 240 ml Intake Oral 480 ml 240 ml 240 ml Output Urine Total 1800 ml # Voids 3 3 Result Diagram: 05/27/1720205/27/17202 Imaging Last Impressions Lower Extremity Ultrasound 05/26/172333 Signed Impressions: Service Date/Time: Friday, May 26, 2017 00:40 - CONCLUSION: No deep venous thrombosis. René Mayberry MD Chest X-Ray 05/25/172333 Signed Impressions: Service Date/Time: Thursday, May 25, 2017 23:49 - CONCLUSION: Single view rotated exam demonstrating no definite acute cardiopulmonary disease. René Mayberry MD Objective Remarks GENERAL: This is a well-nourished, well-developed patient, in no apparent distress. CARDIOVASCULAR: Normal rate and regular rhythm without murmurs, gallops, or rubs. RESPIRATORY: Good respiratory efforts. Breath sounds equal and clear to auscultation bilaterally. GASTROINTESTINAL: Abdomen soft, non-tender, non-distended. Normal active bowel sounds MUSCULOSKELETAL: Extremities without cyanosis, trace bilateral LE edema. NEURO: Alert & Oriented x4 to person, place, time, situation. Moves all ext x4 PSYCH: Appropriate mood and affect. A/P Problem List: (1) CHF (congestive heart failure) ICD Code: I50.9 - Heart failure, unspecified (2) A-fib ICD Code: I48.91 - Unspecified atrial fibrillation (3) HTN (hypertension) ICD Code: I10 - Essential (primary) hypertension Assessment and Plan 77-year-old male admitted for new diastolic CHF exacerbation. The patient was followed by his sisal picker Dr. Díaz. He received IV Lasix in the emergency room with good response. He was transitioned to oral Lasix. His bilateral lower extremity edema significantly improved. Patient also has atrial fibrillation. He is discharged on Imdur, Ranexa, Lasix and metoprolol. He will follow up outpatient with his sisal picker. Patient is discharged with home health to ensure medication compliance and teaching. Discharge Planning Discharge home in good condition with [facility] Activity: Regular as tolerated Diet: Heart healthy Meds: Per med rec Follow-up: With PCP and cardiology. Frank Jefferson MD May 27, 2017 12:04
--- NOTE | 2017-05-27 12:51 | ECHRPT ---
Indication: CONCLUSIONS The left ventricular systolic function is mildly reduced with an estimated ejection fraction in the range of 45- 50%. Mild mitral valve regurgitation. Probable bioprosthetic valve, appears well seated. Moderate paravalvular aortic regurgitation. There is mild tricuspid valve regurgitation. BP: / HR: Rhythm: MEASUREMENTS (Male / Female) Normal Values Technical Quality:Good 2D ECHO LV Diastolic Diameter PLAX 4.6 cm 4.2 - 5.9 / 3.9 - 5.3 cm LV Systolic Diameter PLAX 3.6 cm IVS Diastolic Thickness 1.7 cm 0.6 - 1.0 / 0.6 - 0.9 cm LVPW Diastolic Thickness 1.1 cm 0.6 - 1.0 / 0.6 - 0.9 cm LV Relative Wall Thickness 0.6 RV Internal Dim ED PLAX 2.3 cm LVOT Diameter 2.4 cm M-MODE Aortic Root Diameter MM 3.7 cm LA Systolic Diameter MM 4.7 cm LA Ao Ratio MM 1.3 AV Cusp Separation MM 1.5 cm DOPPLER AV Peak Velocity 220.0 cm/s AV Peak Gradient 19.4 mmHg AV Mean Gradient 9.0 mmHg AV Velocity Time Integral 43.2 cm AI Peak Velocity 277.0 cm/s AI Peak Gradient 30.7 mmHg AI Pressure Half Time 506.0 ms LVOT Peak Velocity 67.7 cm/s LVOT Peak Gradient 1.8 mmHg LVOT Velocity Time Integral 13.7 cm AV Area Cont Eq vti 1.4 cm AV Area Cont Eq pk 1.4 cm LV E' Lateral Velocity 6.5 cm/s LV E' Septal Velocity 5.8 cm/s TR Peak Velocity 312.0 cm/s TR Peak Gradient 38.9 mmHg Right Atrial Pressure 10.0 mmHg Pulmonary Artery Systolic Pressu 48.9 mmHg Right Ventricular Systolic Press 48.9 mmHg FINDINGS LEFT VENTRICLE The left ventricular systolic function is mildly reduced with an estimated ejection fraction in the range of 45- 50%. Normal left ventricular size. There is assymetric septal hypertrophy. RIGHT VENTRICLE Normal right ventricular size and systolic function. LEFT ATRIUM The left atrial size is mildly dilated. RIGHT ATRIUM The right atrial size is normal. ATRIAL SEPTUM Normal atrial septal thickness. AORTA The aortic root and proximal ascending aorta are normal in size on limited imaging. MITRAL VALVE Calcification of both mitral valve leaflets. Mild thickening of the mitral valve leaflets. Mild mitral valve regurgitation. No mitral valve stenosis. AORTIC VALVE Probable bioprosthetic valve, appears well seated No aortic stenosis Moderate paravalvular aortic regurgitation TRICUSPID VALVE There is mild tricuspid valve regurgitation. Structurally normal tricuspid valve. No tricuspid valve stenosis. PULMONARY VALVE No pulmonary valve regurgitation or stenosis. VESSELS The inferior vena cava is normal in size. PERICARDIUM No pericardial effusion. Tereso Minor DO (Electronically Signed) Final Date:27 May 2017 12:51
--- NOTE | 2017-05-27 14:26 | PD.CARD.PN ---
Subjective Subjective Remarks Discussed case with the RN. Patient complained of CP last night. He was taking Ranexa and isosorbide at home. Objective Medications Current Medications Medications (Trade) Dose Ordered Sig/Mark Route Start Time Stop Time Status Last Admin (NS Flush) 2 ml UNSCH PRN IV FLUSH 05/26/17 02:30 (NS Flush) 2 ml BID IV FLUSH 05/26/17 09:00 05/27/17 08:23 (Zofran Inj) 4 mg Q6H PRN IVP 05/26/17 02:30 (Tylenol) 650 mg Q6H PRN PO 05/26/17 02:30 ([place] 5-325 Mg) 1 tab Q4H PRN PO 05/26/17 02:30 (Morphine Inj) 2 mg Q3H PRN IV PUSH 05/26/17 02:30 (Ilda-Colace) 1 tab BID PO 05/26/17 09:00 05/27/17 08:25 (Milk Of Magnesia Liq) 30 ml Q12H PRN PO 05/26/17 02:30 (Senokot) 17.2 mg Q12H PRN PO 05/26/17 02:30 (Dulcolax Supp) 10 mg DAILY PRN RECTAL 05/26/17 02:30 (Lactulose Liq) 30 ml DAILY PRN PO 05/26/17 02:30 (Pravachol) 80 mg HS PO 05/26/17 21:00 05/27/17 00:05 (D50w (Vial) Inj) 50 ml UNSCH PRN IV PUSH 05/26/17 05:15 (Glucagon Inj) 1 mg UNSCH PRN OTHER 05/26/17 05:15 (Xarelto) 15 mg DAILY PO 05/27/17 09:00 05/27/17 08:25 (Lasix) 20 mg DAILY PO 05/27/17 09:00 05/27/17 08:25 (Nitrostat Sl) 0.4 mg Q5M PRN SL 05/27/17 01:30 Vital Signs / I&O Vital Signs Date Time Temp Pulse Resp B/P (MAP) Pulse Ox O2 Delivery O2 Flow Rate FiO2 05/27/17 09:10 98.0 71 18 146/67 (93) 98 05/27/17 04:30 98.4 77 17 143/65 (91) 96 05/27/17 01:14 63 05/27/17 01:08 98.0 83 18 165/78 (107) 97 05/27/17 00:12 98.2 58 17 145/65 (91) 96 05/26/17 20:30 98.4 71 17 141/63 (89) 96 05/26/17 16:50 97.9 62 20 123/59 (80) 100 I/O 05/26/17 05/26/17 05/26/17 05/27/17 05/27/17 05/27/17 07:00 15:00 23:00 07:00 15:00 23:00 Intake Total 480 ml 240 ml 240 ml 360 ml Output Total 1800 ml Balance -1320 ml 240 ml 240 ml 360 ml Intake Oral 480 ml 240 ml 240 ml 360 ml Output Urine Total 1800 ml # Voids 3 3 3 # Bowel Movements 1 Laboratory Laboratory Tests Test 05/27/17 02:03 05/27/17 11:15 White Blood Count 4.9 TH/MM3 Red Blood Count 3.58 MIL/MM3 Hemoglobin 11.6 GM/DL Hematocrit 34.4 % Mean Corpuscular Volume 96.0 FL Mean Corpuscular Hemoglobin 32.5 PG Mean Corpuscular Hemoglobin Concent 33.9 % Red Cell Distribution Width 14.1 % Platelet Count 167 TH/MM3 Mean Platelet Volume 8.2 FL Neutrophils (%) (Auto) 65.1 % Lymphocytes (%) (Auto) 21.0 % Monocytes (%) (Auto) 7.6 % Eosinophils (%) (Auto) 5.9 % Basophils (%) (Auto) 0.4 % Neutrophils # (Auto) 3.2 TH/MM3 Lymphocytes # (Auto) 1.0 TH/MM3 Monocytes # (Auto) 0.4 TH/MM3 Eosinophils # (Auto) 0.3 TH/MM3 Basophils # (Auto) 0.0 TH/MM3 CBC Comment DIFF FINAL Differential Comment Blood Urea Nitrogen 21 MG/DL Creatinine 1.25 MG/DL Random Glucose 96 MG/DL Total Protein 6.3 GM/DL Albumin 3.4 GM/DL Calcium Level 8.6 MG/DL Alkaline Phosphatase 68 U/L Aspartate Amino Transf (AST/SGOT) 19 U/L Alanine Aminotransferase (ALT/SGPT) 22 U/L Total Bilirubin 0.5 MG/DL Sodium Level 141 MEQ/L Potassium Level 4.0 MEQ/L Chloride Level 104 MEQ/L Carbon Dioxide Level 31.1 MEQ/L Anion Gap 6 MEQ/L Estimat Glomerular Filtration Rate 56 ML/MIN Total Creatine Kinase 44 U/L 45 U/L Troponin I LESS THAN 0.02 NG/ML 0.05 NG/ML Imaging Last 24 hours Impressions Lower Extremity Ultrasound 05/26/17 [id number] Signed Impressions: Service Date/Time: Friday, May 26, 2017 00:40 - CONCLUSION: No deep venous thrombosis. René Mayberry MD Assessment and Plan Assessment and Plan Atrial fibrillation and carotid stenosis with history of stroke Iatrogenic bradycardia, HR improved since metoprolol discontinued New diastolic CHF exacerbation ASHD Stable angina AVR Moderate AI EF 52% 11/2016 PLAN: Add back isosorbide mononitrate 30 mg daily and ranexa 1000 mg BID for discharge The patient has appt 06/10/17 The patient needs home health care. Concerned about medication reconciliation and compliance. The patient was seen and evaluated by Dr Díaz who completed face to face encounter, physical exam and participated in evaluation and management. Mary Delgado May 27, 2017 14:26
[2017-05-27] MEDS ORDERED: ISOSORBIDE MONONITRATE 30 MG TAB PO SCH (14:30)
[2017-05-27] MEDS ORDERED: RANOLAZINE 500 MG EXTENDED RELEASE TAB PO SCH (14:30)
--- NOTE | 2017-05-27 14:32 | EKG ---
Date Performed: 05/27/2017 Time Performed: 03:11:54 PTAGE: 77 years EKG: Atrial fibrillation Left ventricular hypertrophy Lateral T wave changes are probably due to ventricular hypertrophy Compared to prior tracing no significant change Abnormal ECG PREVIOUS TRACING : 05/25/17 DOCTOR: Mariam Bean Interpretating Date/Time 05/27/2017 14:27:58
--- NOTE | 2017-05-27 14:33 | EKG ---
Date Performed: 05/27/2017 Time Performed: 08:00:08 PTAGE: 77 years EKG: ATRIAL FIBRILLATION NONSPECIFIC ST & T-WAVE ABNORMALITY PROLONGED QT INTERVAL ABNORMAL ECG Compared to prior tracing no significant change PREVIOUS TRACING : 05/25/2017 23.46 DOCTOR: Mariam Bean Interpretating Date/Time 05/27/2017 14:28:08
--- NOTE | 2017-05-27 21:59 | EKG ---
Date Performed: 05/27/2017 Time Performed: 12:37:43 PTAGE: 77 years EKG: ATRIAL FIBRILLATION NONSPECIFIC T-WAVE ABNORMALITY ABNORMAL RHYTHM ECG PREVIOUS TRACING : 05/27/2017 08.00 Compared to prior tracing no significant change DOCTOR: Xiomara Azul Interpretating Date/Time 05/27/2017 21:58:36
== END 2017-05-27 14:37 | disposition home health service (06) ==
LOC: NEPE 23:03 → NEDA 05-26 02:17 → N05B 05-26 04:00
PROVIDERS: ADMIT Family Medicine; ATTEND Family Medicine
DX: I11.0 Hypertensive heart disease with heart failure (principal); I50.33 Acute on chronic diastolic (congestive) heart failure; I50.9 Heart failure, unspecified; I25.110 Atherosclerotic heart disease of native coronary artery with unstable angina pectoris; I48.2 Chronic atrial fibrillation; E11.9 Type 2 diabetes mellitus without complications; R60.0 Localized edema; E78.00 Pure hypercholesterolemia, unspecified; R07.9 Chest pain, unspecified; R94.31 Abnormal electrocardiogram [ECG] [EKG]; I45.81 Long QT syndrome; R00.1 Bradycardia, unspecified; I69.328 Other speech and language deficits following cerebral infarction; Z86.73 Personal history of transient ischemic attack (TIA), and cerebral infarction without residual deficits; Z79.82 Long term (current) use of aspirin; Z95.2 Presence of prosthetic heart valve; Z95.1 Presence of aortocoronary bypass graft; Z79.01 Long term (current) use of anticoagulants; Z79.02 Long term (current) use of antithrombotics/antiplatelets; Z79.899 Other long term (current) drug therapy
CPT/HCPCS: 71010; 80053; 82550; 82948; 83735; 83880; 84443; 84484; 85025; 85610; 85730; 93005; 93306; 93970; 96374; 99285; G0378; J1940

== ENCOUNTER 2017-06-11 20:39 | Emergency (ER) | payer MEDICARE, BC ==
[~2017-06-11] VITALS: Ht 182.9 cm; Wt 72.5 kg
[~2017-06-11 20:39] MED LIST changes: +ASPI1TAB57 PO; -ASPI1TAB69 PO; +FURO20TA PO; +XARE15TA PO
[2017-06-11 20:48] VITALS: BP 123/60; PULSE 78; RESP 16; TEMP 98; O2SAT 98
[2017-06-11] MEDS ORDERED: LIDOCAINE HCL 1% 50 ML VIAL INFIL ONE (21:15)
[2017-06-11] MEDS ORDERED: TETANUS/DIPHTHERIA TOXOID ADULT 0.5 ML VIAL IM ONE (21:30)
--- NOTE | 2017-06-11 21:38 | PD ---
HPI Chief Complaint: Fall Time Seen by Provider: 21:01 Travel History International Travel<30 days: No Contact w/Intl Traveler<30days: No Traveled to known affect area: No History of Present Illness HPI 77-year-old male presents to the emergency room via ambulance for evaluation after trip and fall. Patient lives alone. States his house is being cleaned for bedbugs and there are boxes everywhere which caused him to trip and fall forward striking his head on the tile floor. States he fell mostly to his left side and reports left thigh and knee pain. He has not tried to ambulate since falling. Patient states the pain is mostly from straining to try to get up. Patient states he was too weak to stand up and lay on the floor for about 1 hour. He adamantly denies loss of consciousness. States after lying for a short period of time, he remembered that he had his phone on him and could see the time; it took him 15 times to dial 911 because his fingers are too large and the buttons are too small. He denies headache, neck pain, worsening of chronic low back pain, abdominal pain, paresthesias, or loss of bowel or bladder control. He is on Xarelto for A. fib and recent stroke 6 months ago. Unknown last tetanus. PFSH Past Medical History Hx Anticoagulant Therapy: Yes (Xarelto) Cardiac Catheterization: Yes Cardiovascular Problems: Yes (HTN, CAD, CABG x3, stent, Valve Replacement) High Cholesterol: Yes Cerebrovascular Accident: Yes (Stroke 6 months ago with L sided weakness, aphasia) Diabetes: Yes Patient Takes Glucophage: No Diminished Hearing: No Hypertension: Yes Musculoskeletal: Yes (FREQUENT FALLS) Neurologic: Yes Tetanus Vaccination: < 5 Years Influenza Vaccination: No Past Surgical History Cardiac Surgery: Yes (VALVE REPLACEMENT, CABG x3) Coronary Artery Bypass Graft: Yes (X4) Coronary Stent: Yes Social History 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) Tobacco Use: No Substance Use: No Allergies-Medications (Allergen,Severity, Reaction): Coded Allergies: alcohol (Unverified Allergy, Severe, "MAKES ME CRAZY", 05/25/17) penicillin G (Unverified Allergy, Severe, Rash, 05/25/17) Reported Meds & Prescriptions Reported Meds & Active Scripts Active Furosemide 20 Mg Tab 20 Mg PO DAILY Xarelto (Rivaroxaban) 15 Mg Tab 15 Mg PO DAILY Aspirin 81 (Aspirin) 81 Mg Tabdr 81 Mg PO DAILY Acetaminophen 325 Mg Tab 325 Mg PO Q4-6H PRN Reported Vitamin D3 (Cholecalciferol) 1,000 Unit Tab 400 Units PO DAILY Metoprolol Tartrate 25 Mg Tab 25 Mg PO DAILY Simvastatin 40 Mg Tab 40 Mg PO HS Plavix (Clopidogrel Bisulfate) 75 Mg Tab 75 Mg PO DAILY Review of Systems Except as stated in HPI: all other systems reviewed are Neg Physical Exam Narrative GENERAL: Well-nourished, well-developed elderly male in no acute distress. Afebrile. Ambulatory. SKIN: Focused skin assessment warm/dry. 2 small hematomas and abrasions to the frontal and temporal scalp. HEAD: Normocephalic. EYES: No scleral icterus. No injection or drainage. EARS: Bilateral pinnae and external canals appear within normal limits. Ear canals are occluded with cerumen. NECK: Supple, trachea midline. No JVD or lymphadenopathy. No midline tenderness. Full range of motion. CARDIOVASCULAR: Regular rate and rhythm without murmurs, gallops, or rubs. RESPIRATORY: Breath sounds equal bilaterally. No accessory muscle use. MSK: No obvious edema of the left lower extremity. Patient has full range motion of the knee. No obvious deformity, shunting, or rotation. NEUROLOGICAL: Awake and alert. Cranial nerves II through XII intact. Motor and sensory grossly within normal limits. Five out of 5 muscle strength in all muscle groups. Slow speech. Data Data Last Documented VS Vital Signs Date Time Temp Pulse Resp B/P (MAP) Pulse Ox O2 Delivery O2 Flow Rate FiO2 06/11/17 20:48 98.0 78 16 123/60 (81) [address] Brain W/O Iv Contrast(Rout) (06/11/17 ) Lidocaine 1% Inj (50 Ml) (Xylocaine 1% I (06/11/17 21:15) Femur (Ap & Lat/2vws) (06/11/17 ) Knee, Complete (4vws) (06/11/17 ) Tetanus/Diphtheria Tox Adult (Tetanus/Di (06/11/17 21:30) MDM Medical Decision Making Medical Screen Exam Complete: Yes Emergency Medical Condition: Yes Medical Record Reviewed: Yes Differential Diagnosis Mechanical fall, contusion, hematoma, intracranial hemorrhage, laceration Narrative Course 77-year-old male presents to the emergency room via ambulance for evaluation of head injury that occurred just prior to arrival. Patient tripped over a box and fell forward striking his head on tile. He adamantly denies loss of consciousness, headache, nausea, vomiting, or photophobia. He is on Xarelto for A. fib. Physical exam is reassuring. Patient does have 2 small abrasions on the top of his head. Patient updated on tetanus. Denies chest pain, shortness of breath, dizziness, neck pain, paresthesias, back pain. He has left upper leg and knee pain but full range of motion of left lower extremity with no shortening or rotation. CT of the brain and x-rays of left femur and knee are ordered and pending. Patient will be signed out to night time provider. Condition: Stable Radha Ag Jun 11, 2017 21:38
--- NOTE | 2017-06-11 23:04 | RADRPT ---
EXAM DATE/TIME: 06/11/2017 21:41 [facility] COMPARISON: No previous studies available for comparison. INDICATIONS : Left femur pain post fall. MEDICAL HISTORY : Hypercholesterolemia. Hypertension. CVA. Diabetes. SURGICAL HISTORY : CABG. Coronary artery stent. Cardiac cath. Valve replacement. ENCOUNTER: Initial ACUITY: 1 day PAIN SCORE: 6/10 LOCATION: Left femur. FINDINGS: Two view examination of the left femur on a backboard demonstrates no evidence of fracture or disloca tion. Bony mineralization is normal. The soft tissue structures are intact. CONCLUSION: No evidence of recent bone injury. Rafa Moody MD on June 11, 2017 at 23:01 Board Certified Radiologist. This report was verified electronically.
--- NOTE | 2017-06-11 23:08 | RADRPT ---
EXAM DATE/TIME: 06/11/2017 21:43 [facility] COMPARISON: KNEE LEFT COMPLETE (4VWS), July 07, 2016, 15:11. INDICATIONS : Left knee pain post fall. MEDICAL HISTORY : Hypercholesterolemia. Hypertension. CVA. Diabetes. SURGICAL HISTORY : CABG. Coronary artery stent. Cardiac cath. Valve replacement. ENCOUNTER: Initial ACUITY: 1 day PAIN SCORE: 6/10 LOCATION: Left knee. FINDINGS: Four view examination of the left knee on a backboard demonstrates no evidence of fracture or disloca tion. Bony mineralization is normal. The articular surfaces are intact. The suprapatellar soft tis sues have a normal configuration. The vascular calcification in the distal thigh and proximal calf. CONCLUSION: No evidence of recent bony injury. Rafa Moody MD on June 11, 2017 at 23:05 Board Certified Radiologist. This report was verified electronically.
--- NOTE | 2017-06-11 23:17 | RADRPT ---
EXAM DATE/TIME: 06/11/2017 21:44 [facility] COMPARISON: CT BRAIN W/O CONTRAST, July 16, 2016, 17:44. INDICATIONS : Fall. Forehead laceration. RADIATION DOSE: 56.35 CTDIvol (mGy) MEDICAL HISTORY : Cardiovascular disease. Hypertension. Cerebrovascular disease. SURGICAL HISTORY : CABG ENCOUNTER: Initial ACUITY: 1 day PAIN SCALE: 3/10 LOCATION: Bilateral frontal TECHNIQUE: Multiple contiguous axial images were obtained of the head. Using automated exposure control and adj ustment of the mA and/or kV according to patient size, radiation dose was kept as low as reasonably a chievable to obtain optimal diagnostic quality images. DICOM format image data is available electro nically for review and comparison. FINDINGS: CEREBRUM: The ventricles and basal cisterns are prominent, but stable from June 2016.. No evidence of midli ne shift, mass lesion, hemorrhage or acute infarction. No extra-axial fluid collections are seen. POSTERIOR FOSSA: The cerebellum and brainstem are intact. The 4th ventricle is midline. The cerebellopontine angle i s unremarkable. EXTRACRANIAL: The visualized portion of the orbits is intact. SKULL: The calvaria is intact. No evidence of skull fracture. CONCLUSION: 1. No acute findings. 2. Stable central atrophy. Rafa Moody MD on June 11, 2017 at 23:13 Board Certified Radiologist. This report was verified electronically.
--- NOTE | 2017-06-11 23:38 | PD ---
Physical Exam Date Seen by Provider: Jun 11, 2017 Time Seen by Provider: 23:33 Narrative The patient is a 77-year-old male was initially evaluated by the mid-level provider. Please refer to the initial history, physical, diagnostic evaluation , treatment modality plan. The patient was signed out with CT and x-rays pending. The patient fell at home, striking his head, there was no LOC. He did have an abrasion of the top of the head. He complained of a mild headache as well as some left leg pain. Data Data Last Documented VS Vital Signs Date Time Temp Pulse Resp B/P (MAP) Pulse Ox O2 Delivery O2 Flow Rate FiO2 06/11/17 20:48 98.0 78 16 123/60 (81) [address] Brain W/O Iv Contrast(Rout) (06/11/17 ) Lidocaine 1% Inj (50 Ml) (Xylocaine 1% I (06/11/17 21:15) Femur (Ap & Lat/2vws) (06/11/17 ) Knee, Complete (4vws) (06/11/17 ) Tetanus/Diphtheria Tox Adult (Tetanus/Di (06/11/17 21:30) MDM Medical Record Reviewed: Yes Supervised Visit with MIGUEL: Yes Interpretation(s) Last Impressions Knee X-Ray 06/11/17 0000 Signed Impressions: Service Date/Time: Sunday, June 11, 2017 21:43 - CONCLUSION: No evidence of recent bony injury. Rafa Moody MD Head CT 06/11/17 0000 Signed Impressions: Service Date/Time: Sunday, June 11, 2017 21:44 - CONCLUSION: 1. No acute findings. 2. Stable central atrophy. Rafa Moody MD Femur X-Ray 06/11/17 0000 Signed Impressions: Service Date/Time: Sunday, June 11, 2017 21:41 - CONCLUSION: No evidence of recent bone injury. Rafa Moody MD Differential Diagnosis Differential diagnosis includes closed head injury, to cranial hemorrhage, coagulopathy, abrasion, laceration, fracture, hematoma. Narrative Course I, Dr. Meeks, have reviewed the advance practice practitioner's documentation and am in agreement, met with the patient face to face, made the diagnosis, and the medical decision making was done by me. *My assessment and Findings: The patient is a 77-year-old male who fell at home after tripping on a lamp. He did strike his head, denies any LOC. He does complain of a abrasion to the top of the head as well as some left leg pain. He normally in place with a walker. The patient did have an abrasion, but no lacerations that needed to be repaired. The patient was signed out with CT and x-rays pending. X-ray of the knee and femur is unremarkable. CT the brain reveals no acute hemorrhage. The patient is stable for discharge home. He is advised to follow-up with his primary physician and return if symptoms worsen or progress. Diagnosis Primary Impression: Fall Qualified Codes: W19.XXXA - Unspecified fall, initial encounter Additional Impressions: Closed head injury Qualified Codes: S09.90XA - Unspecified injury of head, initial encounter Abrasion Patient Instructions: General Instructions Additional Instruction: Please provide the patient a copy of his CT results and lab results at discharge. Follow-up with her primary physician. Ambulate with your walker. Return if symptoms worsen or progress. Med/Other Pt SpecificInfo: No Change to Meds Disposition: 01 DISCHARGE HOME Condition: Stable Delmer Meeks MD Jun 11, 2017 23:38
== END 2017-06-12 08:29 | disposition home or self-care (01) ==
LOC: NEPE 20:39 → NEPD 06-12 08:29
DX: S09.90XA Unspecified injury of head, initial encounter (principal); I48.91 Unspecified atrial fibrillation; I10 Essential (primary) hypertension; E78.00 Pure hypercholesterolemia, unspecified; E11.9 Type 2 diabetes mellitus without complications; Z79.01 Long term (current) use of anticoagulants; Z86.73 Personal history of transient ischemic attack (TIA), and cerebral infarction without residual deficits; W01.198A Fall on same level from slipping, tripping and stumbling with subsequent striking against other object, initial encounter; Y92.019 Unspecified place in single-family (private) house as the place of occurrence of the external cause
CPT/HCPCS: 70450; 73552; 73564; 90471; 90714

== ENCOUNTER 2017-06-14 15:41 | Inpatient (IN) | payer MEDICARE, BC ==
[~2017-06-14] VITALS: Ht 182.9 cm; Wt 61.8 kg
[2017-06-14 15:49] VITALS: BP 142/63; PULSE 73; RESP 14; TEMP 98.2; O2SAT 99
[2017-06-14 17:34] VITALS: BP 144/68; PULSE 90; RESP 17; O2SAT 97
--- NOTE | 2017-06-14 18:11 | PD ---
HPI Chief Complaint: Pain: Acute or Chronic Time Seen by Provider: 17:51 Travel History International Travel<30 days: No Contact w/Intl Traveler<30days: No Traveled to known affect area: No History of Present Illness HPI 77-year-old male presents to emergency department via [facility] with right shoulder and right hip pain after fall occurred yesterday. Patient states that he has been falling frequently and says he has fallen "7 times this week" because of unsteadiness on his feet. Patient denies loss of consciousness, headache, dizziness, or blurred vision. States he recently had a stroke and receiving physical therapy outpatient but has not had at home physical therapy. Patient states he is on a blood thinner. States that he is the only one at home and he "can't do anything". Patient has been diagnosed with aphasia and has a history of CVA. PFSH Past Medical History Hx Anticoagulant Therapy: Yes Cardiac Catheterization: Yes Cardiovascular Problems: Yes (HTN, CAD, CABG x3, stent, Valve Replacement) High Cholesterol: Yes Cerebrovascular Accident: Yes Diabetes: Yes Patient Takes Glucophage: Yes Diminished Hearing: No Hypertension: Yes Musculoskeletal: Yes (FREQUENT FALLS) Neurologic: Yes Past Surgical History Cardiac Surgery: Yes (VALVE REPLACEMENT, CABG x3) Coronary Artery Bypass Graft: Yes (X4) Coronary Stent: Yes Social History Alcohol Use: No Tobacco Use: No Substance Use: No Allergies-Medications (Allergen,Severity, Reaction): Coded Allergies: alcohol (Unverified Allergy, Severe, "MAKES ME CRAZY", 06/14/17) alcohol the drink not medical alcohol penicillin G (Unverified Allergy, Severe, Rash, 06/14/17) Reported Meds & Prescriptions Reported Meds & Active Scripts Active Furosemide 20 Mg Tab 20 Mg PO DAILY Xarelto (Rivaroxaban) 15 Mg Tab 15 Mg PO DAILY Aspirin 81 (Aspirin) 81 Mg Tabdr 81 Mg PO DAILY Reported Vitamin D3 (Cholecalciferol) 1,000 Unit Tab 400 Units PO DAILY Metoprolol Tartrate 25 Mg Tab 25 Mg PO DAILY Simvastatin 40 Mg Tab 40 Mg PO HS Plavix (Clopidogrel Bisulfate) 75 Mg Tab 75 Mg PO DAILY Review of Systems Except as stated in HPI: all other systems reviewed are Neg Physical Exam Narrative GENERAL: Well-nourished, well-developed patient. SKIN: Focused skin assessment warm/dry. HEAD: Normocephalic. EYES: No scleral icterus. No injection or drainage. NECK: Supple, trachea midline. No JVD or lymphadenopathy. CARDIOVASCULAR: Regular rate and rhythm without murmurs, gallops, or rubs. RESPIRATORY: Breath sounds equal bilaterally. No accessory muscle use. GASTROINTESTINAL: Abdomen soft, non-tender, nondistended. MUSCULOSKELETAL: No cyanosis, or edema. Right shoulder- no obvious deformities, TTP to the acromioclavicular joint to midhumerus, no ecchymosis. No abrasions. Neurovascularly intact. Limited range of motion secondary to pain. BACK: Nontender without obvious deformity. No CVA tenderness. Data Data Last Documented VS Vital Signs Date Time Temp Pulse Resp B/P (MAP) Pulse Ox O2 Delivery O2 Flow Rate FiO2 06/14/17 17:34 90 17 144/68 (93) 97 Room Air 06/14/17 15:49 98.2 Orders Orders Electrocardiogram (06/14/17 18:05) Complete Blood Count With Diff (06/14/17 18:05) Comprehensive Metabolic Panel (06/14/17 18:05) Magnesium (Mg) (06/14/17 18:05) Troponin I (06/14/17 18:05) Act Partial Throm Time (Ptt) (06/14/17 18:05) Prothrombin Time / Inr (Pt) (06/14/17 18:05) Urinalysis - C+S If Indicated (06/14/17 18:05) Chest, Single Ap (06/14/17 18:05) Ct Brain W/O Iv Contrast(Rout) (06/14/17 18:05) Ct Cerv Spine W/O Contrast (06/14/17 18:05) Ct Hip W/O Contrast (06/14/17 ) Shoulder, Complete (>2vws) (06/14/17 ) Admit Order (Ed Use Only) (06/14/17 20:11) Labs Laboratory Tests Test 06/14/17 18:25 White Blood Count 8.2 TH/MM3 Red Blood Count 3.69 MIL/MM3 Hemoglobin 12.0 GM/DL Hematocrit 35.4 % Mean Corpuscular Volume 96.0 FL Mean Corpuscular Hemoglobin 32.6 PG Mean Corpuscular Hemoglobin Concent 33.9 % Red Cell Distribution Width 13.7 % Platelet Count 216 TH/MM3 Mean Platelet Volume 9.8 FL Neutrophils (%) (Auto) 69.8 % Lymphocytes (%) (Auto) 18.9 % Monocytes (%) (Auto) 9.3 % Eosinophils (%) (Auto) 1.4 % Basophils (%) (Auto) 0.6 % Neutrophils # (Auto) 5.7 TH/MM3 Lymphocytes # (Auto) 1.6 TH/MM3 Monocytes # (Auto) 0.8 TH/MM3 Eosinophils # (Auto) 0.1 TH/MM3 Basophils # (Auto) 0.0 TH/MM3 CBC Comment DIFF FINAL Differential Comment Prothrombin Time 13.4 SEC Prothromb Time International Ratio 1.3 RATIO Activated Partial Thromboplast Time 36.2 SEC Urine Color YELLOW Urine Turbidity CLEAR Urine pH 5.0 Urine Specific [place] 1.010 Urine Protein NEG mg/dL Urine Glucose (UA) NEG mg/dL Urine Ketones NEG mg/dL Urine Occult Blood NEG Urine Nitrite NEG Urine Bilirubin NEG Urine Urobilinogen LESS THAN 2.0 MG/DL Urine Leukocyte Esterase NEG Urine WBC LESS THAN 1 /hpf Urine Hyaline Casts 1 /lpf Microscopic Urinalysis Comment CULT NOT INDICATED Blood Urea Nitrogen 21 MG/DL Creatinine 1.26 MG/DL Random Glucose 99 MG/DL Total Protein 7.3 GM/DL Albumin 3.8 GM/DL Calcium Level 8.8 MG/DL Magnesium Level 2.2 MG/DL Alkaline Phosphatase 75 U/L Aspartate Amino Transf (AST/SGOT) 27 U/L Alanine Aminotransferase (ALT/SGPT) 24 U/L Total Bilirubin 0.8 MG/DL Sodium Level 137 MEQ/L Potassium Level 4.1 MEQ/L Chloride Level 102 MEQ/L Carbon Dioxide Level 28.2 MEQ/L Anion Gap 7 MEQ/L Estimat Glomerular Filtration Rate 55 ML/MIN Troponin I 0.12 NG/ML [facility] Medical Decision Making Medical Screen Exam Complete: Yes Emergency Medical Condition: Yes Differential Diagnosis right shoulder fracture, contusion, dislocation Narrative Course 77-year-old male presents to emergency department via [facility] with right shoulder and right hip pain after fall occurred yesterday. Patient states that he has been falling frequently and says he has fallen "7 times this week" because of unsteadiness on his feet. Patient denies loss of consciousness, headache, dizziness, or blurred vision. States he recently had a stroke and receiving physical therapy outpatient but has not had at home physical therapy. Patient states he is on a blood thinner. States that he is the only one at home and he "can't do anything". Patient has been diagnosed with aphasia and has a history of CVA. Vital signs stable Physical exam findings consistent with a right shoulder injury, head contusion. Patient is a poor historian. According to the intake notes, patient made a statement to the nurse that he "felt lonely". Patient also stated that he was supposed to receive through physical therapy in the home but had not received it yet. Because of the multiple falls, poor historian, and unsteadiness on his feet, labs were drawn in addition to imaging studies being ordered. I recommend case management get involved with this patient as he is unlikely to be able to care for himself upon discharge. Imaging labs studies pending as of transfer of care to [facility]. Condition: Stable Dalia Christiansen Jun 14, 2017 18:11
[2017-06-14 19:07] LABS: AUTOMATED NEUTROPHIL # 5.7 TH/MM3 (1.8-7.7); BASOPHIL % 0.6 % (0.0-2.0); EOSINOPHIL # 0.1 TH/MM3 (0-0.4); EOSINOPHIL % 1.4 % (0.0-4.0); HEMATOCRIT 35.4 % (39.0-51.0); LYMPH % 18.9 % (9.0-44.0); LYMPHOCYTE # 1.6 TH/MM3 (1.0-4.8); MEAN CORPUSCULAR HEMOGLOBIN 32.6 PG (27.0-34.0); MEAN CORPUSCULAR HGB CONC 33.9 % (32.0-36.0); MEAN PLATELET VOLUME 9.8 FL (7.0-11.0); MONO % 9.3 % (0.0-8.0); MONOCYTE # 0.8 TH/MM3 (0-0.9); NEUT % 69.8 % (16.0-70.0); PLATELET COUNT 216 TH/MM3 (150-450); RED BLOOD COUNT 3.69 MIL/MM3 (4.50-5.90); RED CELL DISTRIBUTION WIDTH 13.7 % (11.6-17.2); WHITE BLOOD COUNT 8.2 TH/MM3 (4.0-11.0)
[2017-06-14 19:12] LABS: INTERNATIONAL NORMALIZED RATIO 1.3 RATIO; PROTHROMBIN TIME - PATIENT 13.4 SEC (9.8-11.6)
[2017-06-14 19:17] LABS: BILIRUBIN, URINE NEG (NEG); BLOOD, URINE NEG (NEG); GLUCOSE,URINE NEG (NEG); HYALINE CAST, URINE 1 /lpf (RARE); KETONE, URINE NEG (NEG); NITRITE,URINE NEG (NEG); URINE COLOR YELLOW (YELLW/STRAW); URINE LEUKOCYTE ESTERASE NEG (NEG)
[2017-06-14 19:24] LABS: ALBUMIN 3.8 GM/DL (3.4-5.0); AST (GOT) 27 U/L (15-37); BICARBONATE 28.2 MEQ/L (21.0-32.0); BLOOD UREA NITROGEN 21 MG/DL (7-18); CALCIUM 8.8 MG/DL (8.5-10.1); CHLORIDE 102 MEQ/L (98-107); CREATININE 1.26 MG/DL (0.60-1.30); GLOMERULAR FILTRATION RATE 55 ML/MIN (>89); GLUCOSE,RANDOM 99 MG/DL (74-106); MAGNESIUM 2.2 MG/DL (1.5-2.5); SODIUM (NA) 137 MEQ/L (136-145)
[2017-06-14 19:25] LABS: ALT (GPT) 24 U/L (12-78)
[2017-06-14 19:28] LABS: ALKALINE PHOSPHATASE 75 U/L (45-117); TOTAL BILIRUBIN ADULT 0.8 MG/DL (0.2-1.0); TOTAL PROTEIN 7.3 GM/DL (6.4-8.2); TROPONIN I 0.12 NG/ML (0.02-0.05)
--- NOTE | 2017-06-14 19:36 | RADRPT ---
EXAM DATE/TIME: 06/14/2017 18:31 [facility] COMPARISON: CT CERVICAL SPINE W/O CONTRAST, June 14, 2017, 18:48. CHEST SINGLE AP, May 25, 2017, 23:49. INDICATIONS : Trauma due to fall. MEDICAL HISTORY : Cerebrovascular disease. Cardiovascular disease. Diabetes mellitus type II. Hypertension. Hyperch olesterolemia. SURGICAL HISTORY : CABG. Coronary artery stent. Cardiac cath. Valve replacement ENCOUNTER: Initial ACUITY: 1 day PAIN SCORE: 0/10 LOCATION: Bilateral chest FINDINGS: 2 AP views of the chest. Median sternotomy wires are present. Prominent skin folds are seen on the ri ght mimicking pneumothorax. Vascular markings clearly extend beyond the skin folds. Lungs are clear. No evidence of pleural effusion. Cardiomediastinal silhouette within normal limits. CONCLUSION: Prominent skin folds on the right. No acute cardiopulmonary disease identified. Guzman Nicholas MD on June 14, 2017 at 19:32 Board Certified Radiologist. This report was verified electronically.
--- NOTE | 2017-06-14 19:37 | RADRPT ---
EXAM DATE/TIME: 06/14/2017 18:38 [facility] COMPARISON: SHOULDER RIGHT COMPLETE (>2VWS), May 06, 2016, 12:08. INDICATIONS : Trauma due to fall. MEDICAL HISTORY : Cardiovascular disease. Cerebrovascular disease. Diabetes mellitus type II. Hypertionsion. Hyper cholesterolemia. SURGICAL HISTORY : CABG. Coronary artery stent. Cardiac cath. Valve replacement ENCOUNTER: Initial ACUITY: 1 day PAIN SCORE: 5/10 LOCATION: Right upper extremity shoulder. FINDINGS: 5 views of the right shoulder. There is dislocation of the acromioclavicular joint with one bone widt h superior displacement of the distal clavicle. No evidence of fracture. Glenohumeral joint within no rmal limits. CONCLUSION: Acromio clavicular joint dislocation with one bone width superior displacement of the distal clavicle . Guzman Nicholas MD on June 14, 2017 at 19:35 Board Certified Radiologist. This report was verified electronically.
--- NOTE | 2017-06-14 19:39 | RADRPT ---
EXAM DATE/TIME: 06/14/2017 18:48 [facility] COMPARISON: CT BRAIN W/O CONTRAST, June 11, 2017, 21:44. INDICATIONS : Trauma; patient fell 2 days ago. RADIATION DOSE: 36.03 CTDIvol (mGy) MEDICAL HISTORY : Cerebrovascular disease. Cardiovascular disease Hypertension.Diabetes SURGICAL HISTORY : CABG ENCOUNTER: Initial ACUITY: 2 days PAIN SCALE: 5/10 LOCATION: cranial TECHNIQUE: Multiple contiguous axial images were obtained of the head. Using automated exposure control and adj ustment of the mA and/or kV according to patient size, radiation dose was kept as low as reasonably a chievable to obtain optimal diagnostic quality images. DICOM format image data is available electro nically for review and comparison. FINDINGS: CEREBRUM: The ventricles are normal for age. No evidence of midline shift, mass lesion, hemorrhage or acute in farction. No extra-axial fluid collections are seen. POSTERIOR FOSSA: The cerebellum and brainstem are intact. The 4th ventricle is midline. The cerebellopontine angle i s unremarkable. EXTRACRANIAL: The visualized portion of the orbits is intact. SKULL: The calvaria is intact. No evidence of skull fracture. CONCLUSION: No acute intracranial findings. Guzman Nicholas MD on June 14, 2017 at 19:36 Board Certified Radiologist. This report was verified electronically.
--- NOTE | 2017-06-14 19:48 | RADRPT ---
EXAM DATE/TIME: 06/14/2017 18:48 [facility] COMPARISON: CT CERVICAL SPINE W/O CONTRAST, July 07, 2016, 14:54. INDICATIONS : Trauma; fall. RADIATION DOSE: 21.48 CTDIvol (mGy) MEDICAL HISTORY : Cerebrovascular disease. Cardiovascular disease Hypertension.Diabetes SURGICAL HISTORY : CABG ENCOUNTER: Initial ACUITY: 2 days PAIN SCALE: 5/10 LOCATION: neck TECHNIQUE: Volumetric scanning of the cervical spine was performed. Multiplanar reconstructions in the sagittal, coronal and oblique axial planes were performed. Using automated exposure control and adjustment o f the mA and/or kV according to patient size, radiation dose was kept as low as reasonably achievable to obtain optimal diagnostic quality images. DICOM format image data is available electronically f or review and comparison. FINDINGS: VERTEBRAE: Normal vertebral body height. ALIGNMENT: No evidence of subluxation. Multilevel severe degenerative findings are again seen. No significant interval change when compared to : 2016.. CONCLUSION: No evidence of fracture. Multilevel severe degenerative findings unchanged. Guzman Nicholas MD on June 14, 2017 at 19:43 Board Certified Radiologist. This report was verified electronically.
--- NOTE | 2017-06-14 19:55 | RADRPT ---
EXAM DATE/TIME: 06/14/2017 18:54 [facility] COMPARISON: CHEST SINGLE AP, June 14, 2017, 18:31. FEMUR LEFT (AP & LAT/2VWS), June 11, 2017, 21:41. INDICATIONS : Trauma; fall. RADIATION DOSE: 10.01 CTDIvol (mGy) MEDICAL HISTORY : Cerebrovascular disease. Cardiovascular disease Hypertension.Diabetes SURGICAL HISTORY : CABG ENCOUNTER: Initial ACUITY: 1 day PAIN SCALE: 7/10 LOCATION: Right hip TECHNIQUE: Volumetric scanning of the hip was performed. Using automated exposure control and adjustment of the mA and/or kV according to patient size, radiation dose was kept as low as reasonably achievable to o btain optimal diagnostic quality images. DICOM format image data is available electronically for rev iew and comparison. FINDINGS: BONES: There is thin linear vertical sclerosis through the greater trochanter on the right indicating possib le nondisplaced greater trochanter fracture. It does not extend to the lesser trochanter or femoral n suzy. Alignment within normal limits. JOINTS: Small osteophytes of the right hip. Minimal superior right hip joint narrowing. SOFT TISSUES: Muscles, tendons and neurovascular structures are grossly unremarkable. No evidence of mass, organize d fluid collection, or foreign body. CONCLUSION: 1. Possible nondisplaced greater trochanter fracture versus prominent physeal scar. [facility] to evaluate the area for bony edema. 2. 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 Guzman Nicholas MD on June 14, 2017 at 19:46 Board Certified Radiologist. This report was verified electronically.
--- NOTE | 2017-06-14 20:02 | PD ---
Physical Exam Time Seen by Provider: 19:48 Data Data Last Documented VS Vital Signs Date Time Temp Pulse Resp B/P (MAP) Pulse Ox O2 Delivery O2 Flow Rate FiO2 06/14/17 17:34 90 17 144/68 (93) 97 Room Air 06/14/17 15:49 98.2 Orders Orders Electrocardiogram (06/14/17 18:05) Complete Blood Count With Diff (06/14/17 18:05) Comprehensive Metabolic Panel (06/14/17 18:05) Magnesium (Mg) (06/14/17 18:05) Troponin I (06/14/17 18:05) Act Partial Throm Time (Ptt) (06/14/17 18:05) Prothrombin Time / Inr (Pt) (06/14/17 18:05) Urinalysis - C+S If Indicated (06/14/17 18:05) Chest, Single Ap (06/14/17 18:05) Ct Brain W/O Iv Contrast(Rout) (06/14/17 18:05) Ct Cerv Spine W/O Contrast (06/14/17 18:05) Ct Hip W/O Contrast (06/14/17 ) Shoulder, Complete (>2vws) (06/14/17 ) Admit Order (Ed Use Only) (06/14/17 20:11) Labs Laboratory Tests Test 06/14/17 18:25 White Blood Count 8.2 TH/MM3 Red Blood Count 3.69 MIL/MM3 Hemoglobin 12.0 GM/DL Hematocrit 35.4 % Mean Corpuscular Volume 96.0 FL Mean Corpuscular Hemoglobin 32.6 PG Mean Corpuscular Hemoglobin Concent 33.9 % Red Cell Distribution Width 13.7 % Platelet Count 216 TH/MM3 Mean Platelet Volume 9.8 FL Neutrophils (%) (Auto) 69.8 % Lymphocytes (%) (Auto) 18.9 % Monocytes (%) (Auto) 9.3 % Eosinophils (%) (Auto) 1.4 % Basophils (%) (Auto) 0.6 % Neutrophils # (Auto) 5.7 TH/MM3 Lymphocytes # (Auto) 1.6 TH/MM3 Monocytes # (Auto) 0.8 TH/MM3 Eosinophils # (Auto) 0.1 TH/MM3 Basophils # (Auto) 0.0 TH/MM3 CBC Comment DIFF FINAL Differential Comment Prothrombin Time 13.4 SEC Prothromb Time International Ratio 1.3 RATIO Activated Partial Thromboplast Time 36.2 SEC Urine Color YELLOW Urine Turbidity CLEAR Urine pH 5.0 Urine Specific [place] 1.010 Urine Protein NEG mg/dL Urine Glucose (UA) NEG mg/dL Urine Ketones NEG mg/dL Urine Occult Blood NEG Urine Nitrite NEG Urine Bilirubin NEG Urine Urobilinogen LESS THAN 2.0 MG/DL Urine Leukocyte Esterase NEG Urine WBC LESS THAN 1 /hpf Urine Hyaline Casts 1 /lpf Microscopic Urinalysis Comment CULT NOT INDICATED Blood Urea Nitrogen 21 MG/DL Creatinine 1.26 MG/DL Random Glucose 99 MG/DL Total Protein 7.3 GM/DL Albumin 3.8 GM/DL Calcium Level 8.8 MG/DL Magnesium Level 2.2 MG/DL Alkaline Phosphatase 75 U/L Aspartate Amino Transf (AST/SGOT) 27 U/L Alanine Aminotransferase (ALT/SGPT) 24 U/L Total Bilirubin 0.8 MG/DL Sodium Level 137 MEQ/L Potassium Level 4.1 MEQ/L Chloride Level 102 MEQ/L Carbon Dioxide Level 28.2 MEQ/L Anion Gap 7 MEQ/L Estimat Glomerular Filtration Rate 55 ML/MIN Troponin I 0.12 NG/ML [facility] Medical Record Reviewed: Yes Supervised Visit with MIGUEL: No Narrative Course Please see previous providers notes. Briefly this is a 77-year-old male with history of CVA with residual aphasia, coronary artery disease with CABG, stent placement, CHF with an ejection fraction of 45-50% on echocardiogram on May 27, 2017, hypertension. He presents via EMS for evaluation after a fall. He reports that he slipped on the tile floor today and fell, landing on his right hip and his right shoulder. Complaining of right hip and right shoulder pain. He is imaging studies been reviewed revealing a possible nondisplaced right greater trochanter fracture as well as a right acromioclavicular separation. He does report that he, clavicular separation was from a previous fall 6 weeks ago. He reports that he has fallen 7 times in the past 6 weeks. He reports that he has been feeling weak and is in his upper extremities. He has been receiving home health care/physical therapy twice a week. His lab work is been reviewed. His troponin is slightly limited 2.12. He does report that he had a 30 minute episode of substernal chest pain this morning when he woke up. He reports that he gets chest pain on a daily basis. Currently anticoagulated with Plavix and Xarelto. EKG atrial fibrillation rate controlled with a rate of 60 consistent with his baseline. The plan will be to admit the patient for observation of elevated troponin, right greater trochanter fracture, frequent falls. The patient agrees with this plan as he does not feel comfortable going home in his current state of health. Diagnosis Primary Impression: Elevated troponin Additional Impressions: Frequent falls Greater trochanter fracture Ady Anderson Jun 14, 2017 20:01
[2017-06-14] MEDS ORDERED: BISACODYL 10 MG SUPP RECTAL PRN (21:00)
[2017-06-14] MEDS ORDERED: ONDANSETRON HCL 4 MG/2 ML VIAL IVP PRN (21:00)
[2017-06-14] MEDS: DOCUSATE SODIUM 50 MG/SENNA 8.6 MG TAB PO SCH (21:00)
[2017-06-14] MEDS ORDERED: MAGNESIUM HYDROXIDE SUSP 30 ML CUP PO PRN (21:00)
[2017-06-14] MEDS ORDERED: ACETAMINOPHEN 325 MG TAB PO PRN (21:00)
[2017-06-14] MEDS ORDERED: SODIUM CHLORIDE 0.9% FLUSH 10 ML FLUSH IV FLUSH PRN (21:00)
[2017-06-14] MEDS ORDERED: SENNOSIDES 8.6 MG TAB PO PRN (21:00)
[2017-06-14] MEDS ORDERED: LACTULOSE SYRUP 20 GM/30 ML CUP PO PRN (21:00)
[2017-06-14] MEDS ORDERED: NALOXONE HCL 0.4 MG/ML AMP IV PUSH PRN (21:00)
[2017-06-14] MEDS ORDERED: PRAVASTATIN SOD 40 MG TAB PO SCH (21:15)
[2017-06-14] MEDS: SODIUM CHLORIDE 0.9% FLUSH 10 ML FLUSH IV FLUSH SCH (21:28)
--- NOTE | 2017-06-14 22:34 | RADRPT ---
EXAM DATE/TIME: 06/14/2017 21:42 [facility] COMPARISON: No previous studies available for comparison. INDICATIONS : Trauma. Frequent falls. Possible right hip fracture on CT. MEDICAL HISTORY : Parkinson's. Cardiovascular disease Cerebrovascular disease. Diabetes. High cholesterol. SURGICAL HISTORY : CABG Bovine heart valve replacement. ENCOUNTER: Initial ACUITY: 1 day PAIN SCORE: 2/10 LOCATION: Right hip. TECHNIQUE: Multiplanar, multisequence MRI examination was performed without contrast. FINDINGS: BONE/CARTILAGE: Bone marrow signal is homogeneous and within normal limits. No evidence of fracture. Alignment within normal limits. Right hip articular cartilage signal within normal limits. LABRUM: Degenerative findings superior labrum. MUSCLES/TENDONS: Moderate-sized area of edema within the gluteus deja muscle on the right measuring 8 cm x 4 cm. Re ctal diagnosis is multiple strain versus contusion. All of the other visualized muscles and tendons a re within normal limits. MISCELLANEOUS: Degenerative findings a lumbar spine with lumbar scoliosis. Small right hip joint effusion. CONCLUSION: 1. No evidence of fracture. 2. Right-sided gluteus deja strain versus contusion. Guzman Nicholas MD on June 14, 2017 at 22:29 Board Certified Radiologist. This report was verified electronically.
[2017-06-14 22:38] VITALS: BP 126/60; PULSE 72; RESP 16; TEMP 97.6; O2SAT 100
[2017-06-14 23:11] LABS: TROPONIN I 0.12 NG/ML (0.02-0.05)
[2017-06-14] MEDS ORDERED: MORPHINE SULFATE 2 MG/ML INJ IM PRN (23:15)
[2017-06-14] MEDS: NITROGLYCERIN 2% OINT 1 GM PACKET TOPICAL SCH (23:17)
[2017-06-15] VITALS (11 sets, daily range): BP systolic 117–149; BP diastolic 55–71; PULSE 54–80; RESP 16–20; TEMP 95.6–97.9; O2SAT 97–100
[2017-06-15] MEDS ORDERED: DEXTROSE 50% IN WATER 50 ML VIAL(D50) IV PUSH PRN (02:00)
[2017-06-15] MEDS ORDERED: GLUCAGON 1 MG/ML VIAL OTHER PRN (02:00)
--- NOTE | 2017-06-15 02:09 | HHI.HP ---
[facility] Primary [facility] Physician Unknown Admission Diagnosis elevated troponin, greater trochanter fracture, frequent falls Diagnoses: Travel History International Travel<30 Days: No Contact w/Intl Traveler <30 Da: No Traveled to Known Affected Are: No History of Present Illness 77-year-old male with a past medical history significant for A. 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 Patient reports falling approximately 7 times in the past 6 weeks. His last fall was 2 days ago when he lost his balance and grabbed onto an old [employer] television to try to stabilize himself. He reports he then fell to the ground and the TV fell on top of him. The patient reports right shoulder and right hip pain. Shoulder x-ray shows right acromioclavicular joint dislocation. CT of the right hip indeterminate for fracture, recommend follow-up MRI. MRI of the right hip shows no evidence of fracture with right-sided gluteus deja strain versus contusion. Patient was found to have an elevated troponin of 0.12 and endorses a 30 minute episode of substernal chest pain that occurred earlier yesterday morning. Review of Systems Denies fever or chills Denies blurry vision, otorrhea, rhinorrhea Denies sore throat and cough Positive chest pain, No palpitations, shortness of breath No abdominal pain Denies constipation/diarrhea/nausea/vomiting Positive right shoulder pain, positive right hip pain No rashes Past Family Social History Past Medical History CVA 6 months ago with residual dysarthria A. fib anticoagulated on Xarelto Parkinson's disease Diabetes mellitus Hyperlipidemia CAD status post CABG and stent placement Past Surgical History CABG 4 Stent placement 1 Valve replacement Tonsillectomy Reported Medications Reported Meds & Active Scripts Active Furosemide 20 Mg Tab 20 Mg PO DAILY Xarelto (Rivaroxaban) 15 Mg Tab 15 Mg PO DAILY Aspirin 81 (Aspirin) 81 Mg Tabdr 81 Mg PO DAILY Reported Vitamin D3 (Cholecalciferol) 1,000 Unit Tab 400 Units PO DAILY Metoprolol Tartrate 25 Mg Tab 25 Mg PO DAILY Simvastatin 40 Mg Tab 40 Mg PO HS Plavix (Clopidogrel Bisulfate) 75 Mg Tab 75 Mg PO DAILY Allergies: Coded Allergies: alcohol (Unverified Allergy, Severe, "MAKES ME CRAZY", 06/14/17) alcohol the drink not medical alcohol penicillin G (Unverified Allergy, Severe, Rash, 06/14/17) Family History Denies family history of diabetes mellitus or coronary artery disease Social History Denies tobacco. 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 Physical Exam Vital Signs Vital Signs Date Time Temp Pulse Resp B/P (MAP) Pulse Ox O2 Delivery O2 Flow Rate FiO2 06/14/17 22:38 97.6 72 16 126/60 (82) 100 06/14/17 17:34 90 17 144/68 (93) 97 Room Air 06/14/17 17:22 78 16 06/14/17 15:49 98.2 73 14 142/63 (89) 99 Physical Exam GENERAL: Thin, male sitting up in bed SKIN: No rashes, ecchymoses or lesions. Cool and dry. HEAD: Atraumatic. Normocephalic. No temporal or scalp tenderness. EYES: Pupils equal round and reactive. Extraocular motions intact. No scleral icterus. No injection or drainage. ENT: Nose without bleeding, purulent drainage or septal hematoma. Throat without erythema, tonsillar hypertrophy or exudate. Uvula midline. Airway patent. NECK: Trachea midline. No JVD or lymphadenopathy. Supple, nontender, no meningeal signs. CARDIOVASCULAR: Irregularly irregular. 3/5 murmur. RESPIRATORY: Clear to auscultation. Breath sounds equal bilaterally. No wheezes , rales, or rhonchi. GASTROINTESTINAL: Abdomen soft, non-tender, nondistended. No hepato-splenomegaly , or palpable masses. No guarding. MUSCULOSKELETAL: Extremities without clubbing, cyanosis, or edema. No joint tenderness, effusion, or edema noted. No calf tenderness. NEUROLOGICAL: Awake and alert. Cranial nerves II through XII intact. Dysarthric speech. 3/5 right shoulder strength. 5/5 strength in all other muscle groups. Laboratory Laboratory Tests Test 06/14/17 18:25 06/14/17 22:20 White Blood Count 8.2 Red Blood Count 3.69 Hemoglobin 12.0 Hematocrit 35.4 Mean Corpuscular Volume 96.0 Mean Corpuscular Hemoglobin 32.6 Mean Corpuscular Hemoglobin Concent 33.9 Red Cell Distribution Width 13.7 Platelet Count 216 Mean Platelet Volume 9.8 Neutrophils (%) (Auto) 69.8 Lymphocytes (%) (Auto) 18.9 Monocytes (%) (Auto) 9.3 Eosinophils (%) (Auto) 1.4 Basophils (%) (Auto) 0.6 Neutrophils # (Auto) 5.7 Lymphocytes # (Auto) 1.6 Monocytes # (Auto) 0.8 Eosinophils # (Auto) 0.1 Basophils # (Auto) 0.0 CBC Comment DIFF FINAL Differential Comment Prothrombin Time 13.4 Prothromb Time International Ratio 1.3 Activated Partial Thromboplast Time 36.2 Urine Color YELLOW Urine Turbidity CLEAR Urine pH 5.0 Urine Specific [place] 1.010 Urine Protein NEG Urine Glucose (UA) NEG Urine Ketones NEG Urine Occult Blood NEG Urine Nitrite NEG Urine Bilirubin NEG Urine Urobilinogen LESS THAN 2.0 Urine Leukocyte Esterase NEG Urine WBC LESS THAN 1 Urine Hyaline Casts 1 Microscopic Urinalysis Comment CULT NOT INDICATED Blood Urea Nitrogen 21 Creatinine 1.26 Random Glucose 99 Total Protein 7.3 Albumin 3.8 Calcium Level 8.8 Magnesium Level 2.2 Alkaline Phosphatase 75 Aspartate Amino Transf (AST/SGOT) 27 Alanine Aminotransferase (ALT/SGPT) 24 Total Bilirubin 0.8 Sodium Level 137 Potassium Level 4.1 Chloride Level 102 Carbon Dioxide Level 28.2 Anion Gap 7 Estimat Glomerular Filtration Rate 55 Troponin I 0.12 0.12 Total Creatine Kinase 140 Result Diagram: 06/14/17182406/14/171824 Caprini VTE Risk Assessment Caprini VTE Risk Assessment: Mod/High Risk (score >= 2) Caprini Risk Assessment Model Point Value = 1 Point Value = 2 Point Value = 3 Point Value = 5 Age 41-60 Minor surgery BMI > 25 kg/m2 Swollen legs Varicose veins or History of unexplained or recurrent spontaneous Oral contraceptives or hormone replacement Sepsis (< 1 month) Serious lung disease, including pneumonia (< 1 month) Abnormal pulmonary function Acute myocardial infarction Congestive heart failure (< 1 month) History of inflammatory bowel disease Medical patient at bed rest Age 61-74 Arthroscopic surgery Major open surgery (> 45 min) Laparoscopic surgery (> 45 min) Malignancy Confined to bed (> 72 hours) Immobilizing plaster cast Central venous access Age >= 75 History of VTE Family history of VTE Factor V Leiden Prothrombin [id number] Lupus anticoagulant Anticardiolipin antibodies Elevated serum homocysteine Heparin-induced thrombocytopenia Other congenital or acquired thrombophilia Stroke (< 1 month) Elective arthroplasty Hip, pelvis, or leg fracture Acute spinal cord injury (< 1 month) Prophylaxis Regimen Total Risk Factor Score Risk Level Prophylaxis Regimen 0-1 Low Early ambulation 2 Moderate Order ONE of the following: *Sequential Compression Device (SCD) *Heparin 5000 units SQ BID 3-4 Higher Order ONE of the following medications: *Heparin 5000 units SQ TID *Enoxaparin/Lovenox 40 mg SQ daily (WT < 150 kg, CrCl > 30 mL/min) *Enoxaparin/Lovenox 30 mg SQ daily (WT < 150 kg, CrCl > 10-29 mL/min) *Enoxaparin/Lovenox 30 mg SQ BID (WT < 150 kg, CrCl > 30 mL/min) AND/OR *Sequential Compression Device (SCD) 5 or more Highest Order ONE of the following medications: *Heparin 5000 units SQ TID (Preferred with Epidurals) *Enoxaparin/Lovenox 40 mg SQ daily (WT < 150 kg, CrCl > 30 mL/min) *Enoxaparin/Lovenox 30 mg SQ daily (WT < 150 kg, CrCl > 10-29 mL/min) *Enoxaparin/Lovenox 30 mg SQ BID (WT < 150 kg, CrCl > 30 mL/min) AND *Sequential Compression Device (SCD) Assessment and Plan Assessment and Plan Assessment/plan: 1. Acromioclavicular joint dislocation of the right shoulder Orthopedic surgery consulted, appreciate recommendations 2. Frequent falls PT evaluation pending Patient reports he has home PT that comes 2 times per week 3. Elevated troponin/chest pain Troponin 0.12 EKG showed atrial fibrillation with a heart rate of 60, no ST segment elevations or depressions, images reviewed by me Nitroglycerin, morphine for pain ACS rule out pending; serial troponins/EKGs Patient's mime artist is Dr. Díaz 4. CHF Last echo done on 05/27/17 showed an EF of 45-50% Continue home Lasix 5. Atrial fibrillation Rate controlled Holding home Xarelto until orthopedic surgery evaluation complete Continue metoprolol 6. CAD/hyperlipidemia Continue home medications FEN NPO Electrolytes: monitor and replete prn NS at 84 cc/hr Holding pharmacologic anticoagulation until orthopedic surgery evaluation Case discussed with ER physician at length Vale Huff MD Jun 15, 2017 02:09
[2017-06-15] MEDS: SODIUM CHLOR 0.9% 1000 ML INJ 1,000 ML IV SCH ×2 (03:25→14:04)
[2017-06-15 04:40] LABS: AUTOMATED NEUTROPHIL # 3.7 TH/MM3 (1.8-7.7); BASOPHIL % 0.9 % (0.0-2.0); EOSINOPHIL # 0.1 TH/MM3 (0-0.4); EOSINOPHIL % 2.6 % (0.0-4.0); HEMATOCRIT 30.8 % (39.0-51.0); HEMOGLOBIN 10.5 GM/DL (13.0-17.0); LYMPH % 21.1 % (9.0-44.0); LYMPHOCYTE # 1.2 TH/MM3 (1.0-4.8); MEAN CELL VOLUME 95.2 FL (80.0-100.0); MEAN CORPUSCULAR HEMOGLOBIN 32.5 PG (27.0-34.0); MEAN CORPUSCULAR HGB CONC 34.1 % (32.0-36.0); MONO % 10.3 % (0.0-8.0); MONOCYTE # 0.6 TH/MM3 (0-0.9); NEUT % 65.1 % (16.0-70.0); PLATELET COUNT 180 TH/MM3 (150-450); RED BLOOD COUNT 3.24 MIL/MM3 (4.50-5.90); RED CELL DISTRIBUTION WIDTH 13.1 % (11.6-17.2); WHITE BLOOD COUNT 5.7 TH/MM3 (4.0-11.0)
[2017-06-15 05:11] LABS: BICARBONATE 30.5 MEQ/L (21.0-32.0); CALCIUM 8.6 MG/DL (8.5-10.1); CREATININE 1.06 MG/DL (0.60-1.30)
[2017-06-15 05:14] LABS: TROPONIN I 0.12 NG/ML (0.02-0.05)
[2017-06-15] MEDS: NITROGLYCERIN 2% OINT 1 GM PACKET TOPICAL SCH ×3 (06:29→21:15)
[2017-06-15] MEDS: INSULIN ASPART SUPPLEMENTAL SCALE SQ SCH ×4 (08:00→21:00)
[2017-06-15] MEDS: SODIUM CHLORIDE 0.9% FLUSH 10 ML FLUSH IV FLUSH SCH ×2 (09:00→21:14)
[2017-06-15] MEDS ORDERED: METOPROLOL TARTRATE 25 MG TAB PO SCH (09:00)
[2017-06-15] MEDS ORDERED: PNEUMOCOCCAL POLYVALENT INJ 25 MCG/0.5 ML SYR IM ONE (09:00)
[2017-06-15] MEDS: DOCUSATE SODIUM 50 MG/SENNA 8.6 MG TAB PO SCH ×2 (09:06→21:14)
[2017-06-15] MEDS: FUROSEMIDE 20 MG TAB PO SCH (09:06)
[2017-06-15] MEDS ORDERED: PILL SPLITTER OTHER PRN (10:45)
--- NOTE | 2017-06-15 14:08 | MB ---
cc: BARBARA SANCHEZ DATE OF CONSULTATION: 06/15/2017. REASON FOR CONSULTATION: Right shoulder and right hip pain. HISTORY OF PRESENT ILLNESS: This is a 77-year-old male who arrived in the emergency department on 06/14/2017 via EMS. The patient had a fall prior to arrival. The patient states he lost his balance and grabbed hold of a television as he fell. The patient states that the television did fall on his right hip and head. The patient reported having immediate pain to the right shoulder and the right hip. The patient states he has had multiple falls recently. The patient states approximately six weeks ago he fell and initially injured his right shoulder. The patient was told by his primary care physician, Dr. Laws, that he had a dislocated acromioclavicular joint. The patient states he was having very little pain about the shoulder and was told to continue with conservative management for this. The patient states that his recent fall seemed to aggravate the right shoulder. The patient describes his pain as intermittent. The patient has pain with movement and no pain with rest. The patient describes his pain as being mild to moderate. The patient also reports mild to moderate pain about the right hip. Movement also exacerbates his symptoms. The patient has a history of atrial fibrillation and is on Xarelto for this. The patient also had a CVA six months ago with some residual dysarthria. The patient has a history of Parkinson's disease, diabetes, congestive heart failure, hyperlipidemia, cardiac stents, and a previous CABG. REVIEW OF SYSTEMS: The review of systems is negative times 12 except for what is stated in the history of present illness. PAST MEDICAL HISTORY: 1. CVA six months ago with residual dysarthria. 2. Atrial fibrillation, anticoagulated on Xarelto. 3. Parkinson's disease. 4. Diabetes mellitus. 5. Hyperlipidemia. 6. Coronary artery disease. PAST SURGICAL HISTORY: 1. CABG x4. 2. Stent placement x1. 3. Valve replacement. 4. Tonsillectomy. MEDICATIONS: Please the nurses notes for this list. SOCIAL HISTORY: The patient denies any alcohol, tobacco or drug use. ALLERGIES: 1. ALCOHOL. 2. PENICILLIN. PHYSICAL EXAMINATION: VITAL SIGNS: Temperature 97.8, pulse 68, respirations 20, blood pressure 126/58 and pulse oximetry is 99% on room air. GENERAL: The patient is a thin male resting in bed in no acute distress. SKIN: The patient has a small abrasion to his forehead. There are well-healed scars about the bilateral lower extremities. I do not appreciate any rashes, ecchymoses or swelling. HEAD, EYES, EARS, NOSE, THROAT: The head is normocephalic with a small abrasion to the forehead. Pupils equal, round and reactive to light and accommodation. Ears, nose and throat - the patient has no nasal bleeding. The mucous membranes are moist. Airway is patent. NECK: Trachea is midline. The neck is supple. CARDIOVASCULAR: The patient has 2+ radial and pedal pulses bilaterally. The patient has an irregular heartbeat. RESPIRATORY: The patient's breathing is nonlabored and there is symmetric chest wall rise. GASTROINTESTINAL: The patient's abdomen is soft, nontender and nondistended. MUSCULOSKELETAL: The patient moves the bilateral ankles, knees and left hip with no discomfort or limitation. The patient does have some mildly restrictive range of motion of the right hip secondary to discomfort. The patient has some mild tenderness to palpation laterally over the greater trochanter. Skin is intact. The patient moves the bilateral wrists, elbows and left shoulder within normal limits. The patient has no tenderness to palpation. The patient does have an obvious deformity about the right acromioclavicular joint. There is some mild tenting of the skin. The patient's skin is intact. The patient has some tenderness to palpation over the acromioclavicular joint. There is limitation in range of motion. NEUROLOGICAL: The patient is alert and oriented times three. The patient's cranial nerves show no obvious deficits. The patient does have dysarthric speech. PSYCHOLOGICAL: The patient has normal mood and affect. LABS TAKEN ON 06/15/2017: White blood cell count of 5.7, hemoglobin 10.5, hematocrit 30.8, platelet count 180,000. Creatinine is 1.06, glucose is 110. Troponin is elevated at 0.12. INR is 1.3. Urinalysis taken on 06/14/2017 is negative for infection and culture is not indicated. IMAGING STUDIES: Shoulder x-rays, two views of the right shoulder, taken on 06/14/2017 read as, " acromioclavicular joint dislocation with one bone width superior displacement of the distal clavicle". I have reviewed these images and agree with the radiologist's interpretation. CT of the right hip without contrast on 06/14/2017 reads as, "Possible nondisplaced greater trochanter fracture versus prominent physeal scar. MRI is recommended. There are mild osteoarthritic findings of the right hip. I have reviewed these images and do not see an obvious fracture of the greater trochanter. MRI of the right hip without contrast on 06/14/2017 reads as, "No evidence of fracture and right-sided gluteus deja strain versus contusion. I have reviewed these images and agree with the radiologist's interpretation. CT of the cervical spine without contrast on 06/14/2017 reads as, "No evidence of fracture. There is multilevel severe degenerative findings". I have reviewed these images and agree with the radiologist's interpretation. The patient does have severe osteoarthritis and degenerative disc disease at multiple levels. IMPRESSION: 1. Right shoulder acromioclavicular joint dislocation. 2. Right hip contusion. 3. Right-sided gluteus deja strain. 4. Severe osteoarthritis and degenerative disc disease of the cervical spine at multiple levels. MEDICAL DECISION-MAKING: Based on the patient's clinical exam, imaging and history of multiple co-morbidities, I would recommend conservative management of the right shoulder and right hip. The patient recently had a stroke six months ago and has a complicated cardiac history including atrial fibrillation with use of Xarelto. I do not feel like the patient is a good surgical candidate for the right shoulder. We discussed the options of surgery as well as conservative management. I do feel that overall the patient should do well with nonsurgical management. The patient does agree with this plan of care. The patient understands the multiple risk factors he would have if surgical management was elected. At this time, I am going to place the patient in a sling for comfort and support. I would like the patient to follow up in the office once discharged. We did discuss the use of a figure-eight brace to help with the acromioclavicular joint separation. Regarding the patient's right hip, I would recommend ice and pain medications for pain management. The patient's current symptoms should improve given some time. The patient does have multiple falls over the last several weeks and lives alone. The patient has a history of Parkinson's disease that appears to be progressing. The patient will likely require placement in a facility to help facilitate his normal activities of daily living. I have reviewed the above impression and plan of care with Dr. Sanchez, and he agrees with this documentation. Dictated by Vern Ugalde, nurse practitioner, for Dr. Sanchez. DMITRIY Matamoros/NUBIA /11:31 AM /1:30 PM MTDD
--- NOTE | 2017-06-15 18:30 | EKG ---
Date Performed: 06/15/2017 Time Performed: 05:21:39 PTAGE: 77 years EKG: ATRIAL FIBRILLATION ST DEVIATION AND MODERATE T-WAVE ABNORMALITY ABNORMAL ECG PREVIOUS TRACING : 06/14/2017 18.21 Compared to prior tracing no significant change DOCTOR: Xiomara Azul Interpretating Date/Time 06/15/2017 18:28:50
[2017-06-15] MEDS ORDERED: NON-FORMULARY DRUG (Simvastatin 40 MG) PO SCH (21:00)
[2017-06-15] MEDS: PRAVASTATIN SOD 40 MG TAB PO SCH (21:14)
--- NOTE | 2017-06-15 21:39 | EKG ---
Date Performed: 06/14/2017 Time Performed: 22:17:07 PTAGE: 77 years EKG: ATRIAL FIBRILLATION ST DEVIATION AND MODERATE T-WAVE ABNORMALITY ABNORMAL ECG Compared to p rior tracing no significant change DOCTOR: Xiomara Azul Interpretating Date/Time 06/15/2017 21:37:27
--- NOTE | 2017-06-15 21:58 | EKG ---
Date Performed: 06/14/2017 Time Performed: 18:21:34 PTAGE: 77 years EKG: ATRIAL FIBRILLATION POSSIBLE LEFT VENTRICULAR HYPERTROPHY ST DEVIATION AND MODERATE T-WAVE ABNORMALITY PREVIOUS TRACING : 05/27/2017 12.37 Compared to prior tracing no significant change DOCTOR: Xiomara Azul Interpretating Date/Time 06/15/2017 21:56:55
[2017-06-16] VITALS (11 sets, daily range): BP systolic 112–159; BP diastolic 52–89; PULSE 58–84; RESP 16–24; TEMP 96.7–98.4; O2SAT 97–100
[2017-06-16] MEDS: NITROGLYCERIN 2% OINT 1 GM PACKET TOPICAL SCH ×3 (05:38→22:11)
[2017-06-16] MEDS: SODIUM CHLOR 0.9% 1000 ML INJ 1,000 ML IV SCH (05:38)
[2017-06-16] MEDS: INSULIN ASPART SUPPLEMENTAL SCALE SQ SCH ×4 (08:00→20:56)
[2017-06-16] MEDS: SODIUM CHLORIDE 0.9% FLUSH 10 ML FLUSH IV FLUSH SCH ×2 (09:00→22:22)
[2017-06-16] MEDS: FUROSEMIDE 20 MG TAB PO SCH (09:56)
[2017-06-16] MEDS: DOCUSATE SODIUM 50 MG/SENNA 8.6 MG TAB PO SCH ×2 (09:56→20:53)
[2017-06-16] MEDS: METOPROLOL TARTRATE 25 MG TAB PO SCH (09:57)
[2017-06-16] MEDS ORDERED: LACTULOSE SYRUP 20 GM/30 ML CUP PO ONE (10:00)
[2017-06-16] MEDS: ISOSORBIDE MONONITRATE 30 MG TAB PO SCH (10:00)
--- NOTE | 2017-06-16 10:08 | HHI.PR ---
Subjective Remarks Patient seen in follow-up for mechanical fall. Patient complained of constipation and chest pain. States he hasn't had a bowel movement in 7 days. He has intermittent chest pain and was put on Ranexa and Imdur at his last hospital visit. Nitro is helping. No shortness of breath. He is agreeable to SNF placement. Right should and hip pain controlled. Objective Vitals Vital Signs Date Time Temp Pulse Resp B/P (MAP) Pulse Ox O2 Delivery O2 Flow Rate FiO2 06/16/17 09:02 98.4 84 24 159/89 (112) 99 06/16/17 04:05 97.6 58 16 112/58 (76) 98 06/16/17 02:33 69 06/15/17 23:54 97.4 58 16 117/56 (76) 97 06/15/17 19:53 97.8 79 16 138/59 (85) 99 06/15/17 16:33 70 06/15/17 15:35 97.6 80 20 149/71 (97) 100 06/15/17 13:39 66 06/15/17 11:01 97.8 68 20 126/58 (80) 99 I/O 06/15/17 06/15/17 06/15/17 06/16/17 06/16/17 06/16/17 07:00 15:00 23:00 07:00 15:00 23:00 Intake Total 500 ml 360 ml 250 ml Output Total 275 ml 700 ml 450 ml Balance 225 ml -340 ml 250 ml -450 ml Intake Oral 500 ml 360 ml 250 ml Output Urine Total 275 ml 700 ml 450 ml # Voids 2 1 2 Result Diagram: 06/15/17 0419 06/15/17418 Imaging Last Impressions Head CT 06/14/171804 Signed Impressions: Service Date/Time: Wednesday, June 14, 2017 18:48 - CONCLUSION: No acute intracranial findings. Guzman Nicholas MD Chest X-Ray 06/14/171804 Signed Impressions: Service Date/Time: Wednesday, June 14, 2017 18:31 - CONCLUSION: Prominent skin folds on the right. No acute cardiopulmonary disease identified. Guzman Nicholas MD Cervical Spine CT 06/14/171804 Signed Impressions: Service Date/Time: Wednesday, June 14, 2017 18:48 - CONCLUSION: No evidence of fracture. Multilevel severe degenerative findings unchanged. Guzman Nicholas MD Shoulder X-Ray 06/14/17 0000 Signed Impressions: Service Date/Time: Wednesday, June 14, 2017 18:38 - CONCLUSION: Acromio clavicular joint dislocation with one bone width superior displacement of the distal clavicle. Guzman Nicholas MD Lower Extremity CT 06/14/17 0000 Signed Impressions: Service Date/Time: Wednesday, June 14, 2017 18:54 - CONCLUSION: 1. Possible nondisplaced greater trochanter fracture versus prominent physeal scar. Recommend a followup MRI right hip to evaluate the area for bony edema. 2. 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 Guzman Nicholas MD Hip MRI 06/14/17 0000 Signed Impressions: Service Date/Time: Wednesday, June 14, 2017 21:42 - CONCLUSION: 1. No evidence of fracture. 2. Right-sided gluteus deja strain versus contusion. Guzman Nicholas MD Objective Remarks GENERAL: Frail and elderly male in no apparent distress. CARDIOVASCULAR: Normal rate and regular rhythm without murmurs, gallops, or rubs. RESPIRATORY: Good respiratory efforts. Breath sounds equal and clear to auscultation bilaterally. GASTROINTESTINAL: Abdomen soft, non-tender, non-distended. Normal active bowel sounds MUSCULOSKELETAL: Right shoulder range of motion limited to 90. Neurovascular the entire over the right fingers. Some tenderness to palpation over AC joint. Right hip mild tenderness to palpation NEURO: Alert & Oriented x4 to person, place, time, situation. Moves all ext x4 PSYCH: Appropriate mood and affect. A/P Assessment and Plan 77-year-old male with worsening physical deconditioning and debility admitted after a mechanical fall. Patient sustained AC joint dislocation of the right shoulder and right gluteal muscle strains. Patient will need SNF placement. 1. Acromioclavicular joint dislocation of the right shoulder and right gluteal muscle strain Orthopedic surgery following and recommended conservative management. Sling for comfort as needed, pain control. Patient needs to continue rehabilitation at a care home facility. 2. Frequent falls: Worsening decondition/stability. He needs rehabilitation at SNF. PT following Patient reports he has home PT that comes 2 times per week 3. Elevated troponin/chest pain Troponin remained flat at 0.12. However his chest pain continues. Improved with nitroglycerin. Review of hospital records shows he was supposed to be on Imdur and Ranexa at home. Resume Imbur and Ranexa. Consult the patient's Beef Cattle Specialist Dr. Díaz. Nitroglycerin, morphine for pain PRN 4. CHF Last echo done on 05/27/17 showed an EF of 45-50% Continue home Lasix 5. Atrial fibrillation Rate controlled Holding home Xarelto until orthopedic surgery evaluation complete Continue metoprolol 6. CAD/hyperlipidemia Continue home medications 7. Constipation: - Meds per Protocol. Give a dose of Lactulose this morning and follow progress. Discharge Planning Patient will need SNF placement. CM consulted to arrange. Frank Jefferson MD Jun 16, 2017 10:08
[2017-06-16] MEDS: PRAVASTATIN SOD 40 MG TAB PO SCH (20:52)
[2017-06-16] MEDS: RANOLAZINE 500 MG EXTENDED RELEASE TAB PO SCH (20:52)
[2017-06-17] VITALS (9 sets, daily range): BP systolic 99–143; BP diastolic 51–64; PULSE 59–77; RESP 17–18; TEMP 95.9–97.2; O2SAT 96–100
--- NOTE | 2017-06-17 05:47 | MB ---
cc: KYLEJONHXIOMARA DATE OF CONSULTATION 06/16/2017 HISTORY OF PRESENT ILLNESS A 77-year-old white male with a history of atrial fibrillation, CVA with residual dysarthria, Parkinson's disease, diabetes mellitus, and congestive heart failure. He has had frequent falls. Several days ago he lost his balance and fell on his right hip and right shoulder. He suffered acromioclavicular joint dislocation but no evidence of hip fracture. He has occasional episodes of vague substernal chest discomfort radiating into his back. He also has mild shortness of breath. PAST MEDICAL HISTORY 1. Positive for CVA 6 months ago with residual dysarthria. 2. Atrial fibrillation. 3. Parkinson's disease. 4. Diabetes mellitus. 5. Dyslipidemia. 6. Coronary disease. PAST SURGICAL HISTORY 1. Coronary bypass and stent placement. 2. Four-vessel bypass. 3. History of valve replacement. 4. Tonsillectomy. MEDICATIONS 1. Xarelto 15 mg per day. 2. Furosemide. 3. Aspirin. 4. Vitamin D3. 5. Metoprolol. 6. Simvastatin. 7. Plavix. ALLERGIES PENICILLIN. SOCIAL HISTORY The patient has been in for the last 30 years. He does not smoke. FAMILY HISTORY Ns negative for heart disease in direct relatives. REVIEW OF SYSTEMS Otherwise negative. PHYSICAL EXAMINATION VITAL SIGNS: Blood pressure 126/58, pulse 68 and irregular. HEENT: Negative. NECK: 2+ carotid upstrokes. No bruits. LUNGS: Clear. HEART: Irregularly irregular with a 2/6 systolic murmur, no gallop. ABDOMEN: Soft. No bruits. EXTREMITIES: Without edema. 1+ distal pulses. NEUROLOGIC: Exam is grossly nonfocal and is consistent with dysarthria. EKG Reviewed and showed atrial fibrillation with controlled ventricular response, left ventricular hypertrophy, nonspecific ST-T wave changes. LABORATORY DATA Hemoglobin 10.5. Potassium 3.8, creatinine 1.1. Troponin 0.12, 0.12, 0.12. CK 140 and 113. DIAGNOSES 1. Frequent falls. 2. Mild troponin elevation. 3. Chronic atrial fibrillation. 4. Chest pain. 5. Congestive heart failure. 6. Cardiomyopathy with mild left ventricular dysfunction. 7. Coronary artery disease. History of re-do coronary bypass and aortic valve replacement. DISPOSITION Mr. Albarran will be monitored on telemetry. We will continue his current medical program for angina. His troponin is slightly elevated but is not trending in either direction and is not consistent with acute myocardial infarction. He has a history of congestive heart failure and mild left ventricular dysfunction. I recommend to continue therapy for congestive heart failure including diuresis. I will follow him for cardiology during his hospitalization. He will follow up with Dr. Díaz, his primary switchboard and control room operator, in his office after discharge. Xiomara Azul MD OQ/SSB /7:38 PM /5:23 AM [email or web address]
[2017-06-17] MEDS: ISOSORBIDE MONONITRATE 30 MG TAB PO SCH (06:21)
[2017-06-17] MEDS: NITROGLYCERIN 2% OINT 1 GM PACKET TOPICAL SCH ×3 (06:24→21:20)
[2017-06-17 06:46] LABS: CALCIUM 8.9 MG/DL (8.5-10.1); CREATININE 1.01 MG/DL (0.60-1.30)
[2017-06-17] MEDS: INSULIN ASPART SUPPLEMENTAL SCALE SQ SCH ×4 (08:00→21:00)
[2017-06-17] MEDS: METOPROLOL TARTRATE 25 MG TAB PO SCH (10:27)
[2017-06-17] MEDS: SODIUM CHLORIDE 0.9% FLUSH 10 ML FLUSH IV FLUSH SCH ×2 (10:27→21:20)
[2017-06-17] MEDS: FUROSEMIDE 20 MG TAB PO SCH (10:27)
[2017-06-17] MEDS: DOCUSATE SODIUM 50 MG/SENNA 8.6 MG TAB PO SCH ×2 (10:27→21:19)
[2017-06-17] MEDS: CLOPIDOGREL 75 MG TAB PO SCH (10:32)
[2017-06-17] MEDS: RANOLAZINE 500 MG EXTENDED RELEASE TAB PO SCH ×2 (10:41→21:19)
[2017-06-17] MEDS: RIVAROXABAN 15 MG TAB PO SCH (13:44)
--- NOTE | 2017-06-17 16:56 | PD.CARD.PN ---
Subjective Subjective Remarks Still c/o SOB, no CP, weak Objective Medications Current Medications Medications (Trade) Dose Ordered Sig/Mark Route Start Time Stop Time Status Last Admin (NS Flush) 2 ml UNSCH PRN IV FLUSH 06/14/17 21:00 (NS Flush) 2 ml BID IV FLUSH 06/14/17 21:00 06/17/17 10:27 (Tylenol) 650 mg Q4H PRN PO 06/14/17 21:00 06/17/17 03:31 (Zofran Inj) 4 mg Q6H PRN IVP 06/14/17 21:00 (Narcan Inj) 0.4 mg UNSCH PRN IV PUSH 06/14/17 21:00 (Ilda-Colace) 1 tab BID PO 06/14/17 21:00 06/17/17 10:27 (Milk Of Magnesia Liq) 30 ml Q12H PRN PO 06/14/17 21:00 (Senokot) 17.2 mg Q12H PRN PO 06/14/17 21:00 (Dulcolax Supp) 10 mg DAILY PRN RECTAL 06/14/17 21:00 (Lactulose Liq) 30 ml DAILY PRN PO 06/14/17 21:00 (Lasix) 20 mg DAILY PO 06/15/17 09:00 06/17/17 10:27 (Pravachol) 80 mg HS PO 06/15/17 21:00 06/16/17 20:52 (Nitroglycerin 2% Oint) 2 inch Q8HR TOPICAL 06/14/17 23:15 06/17/17 13:44 (Morphine Inj) 2 mg Q4H PRN IM 06/14/17 23:15 (D50w (Vial) Inj) 50 ml UNSCH PRN IV PUSH 06/15/17 02:00 (Glucagon Inj) 1 mg UNSCH PRN OTHER 06/15/17 02:00 (NovoLOG SUPPLEMENTAL SCALE) 1 ACHS SLIDING SCALE SQ 06/15/17 08:00 (Lopressor) 12.5 mg DAILY PO 06/16/17 09:00 06/17/17 10:27 (Pill Splitter) 1 ea UNSCH PRN OTHER 06/15/17 10:45 (Imdur) 30 mg DAILY@07 PO 06/16/17 10:00 06/17/17 06:21 (Ranexa) 1,000 mg Q12HR PO 06/16/17 21:00 06/17/17 10:41 (Ecotrin Ec) 81 mg DAILY PO 06/18/17 09:00 (Plavix) 75 mg DAILY PO 06/17/17 10:00 06/17/17 10:32 (Xarelto) 15 mg DAILY PO 06/17/17 12:00 06/17/17 13:44 Vital Signs / I&O Vital Signs Date Time Temp Pulse Resp B/P (MAP) Pulse Ox O2 Delivery O2 Flow Rate FiO2 06/17/17 13:05 63 06/17/17 12:00 96.4 62 17 99/53 (68) 100 06/17/17 08:00 95.9 68 17 111/64 (80) 100 06/17/17 03:44 59 06/17/17 03:00 96.7 74 18 143/59 (87) 96 06/16/17 23:49 68 06/16/17 23:16 96.7 71 18 127/57 (80) 99 06/16/17 19:14 96.7 63 18 116/52 (73) 99 I/O 06/16/17 06/16/17 06/16/17 06/17/17 06/17/17 06/17/17 07:00 15:00 23:00 07:00 15:00 23:00 Intake Total 250 ml 800 ml 240 ml 360 ml Output Total 650 ml Balance 250 ml 150 ml 240 ml 360 ml Intake Oral 250 ml 240 ml 360 ml IV Total 800 ml Output Urine Total 650 ml # Voids 2 2 3 # Bowel Movements 4 0 Physical Exam GENERAL: In NAD SKIN: Warm and dry. HEAD: Normocephalic. EYES: No scleral icterus. No injection or drainage. NECK: Supple, trachea midline. No JVD or lymphadenopathy. CARDIOVASCULAR: Regular rate and rhythm without murmurs, gallops, or rubs. RESPIRATORY: Breath sounds equal bilaterally. No accessory muscle use. GASTROINTESTINAL: Abdomen soft, non-tender, nondistended. MUSCULOSKELETAL: No cyanosis, mild edema. Laboratory Laboratory Tests Test 06/17/17 05:43 Blood Urea Nitrogen 18 MG/DL Creatinine 1.01 MG/DL Random Glucose 108 MG/DL Calcium Level 8.9 MG/DL Sodium Level 138 MEQ/L Potassium Level 4.4 MEQ/L Chloride Level 106 MEQ/L Carbon Dioxide Level 27.0 MEQ/L Anion Gap 5 MEQ/L Estimat Glomerular Filtration Rate 71 ML/MIN Assessment and Plan Problem List: (1) Frequent falls ICD Codes: R29.6 - Repeated falls Status: Acute (2) CHF (congestive heart failure) ICD Codes: I50.9 - Heart failure, unspecified (3) CAD (coronary artery disease) ICD Codes: I25.10 - Atherosclerotic heart disease of [place] coronary artery without angina pectoris (4) Elevated troponin ICD Codes: R74.8 - Abnormal levels of other serum enzymes Status: Acute (5) A-fib ICD Codes: I48.91 - Unspecified atrial fibrillation Assessment and Plan Continue monitoring. Feels slightly better. Continue Imdur and Ranexa. Increase activity, PT. F/u w Dr. Díaz after discharge. Xiomara Azul MD Jun 17, 2017 16:56
--- NOTE | 2017-06-17 17:22 | HHI.PR ---
Subjective Remarks seen today around noon. Reports the pain is controlled. Denies any chest pain or shortness of breath. Objective Vital Signs Date Time Temp Pulse Resp B/P (MAP) Pulse Ox O2 Delivery O2 Flow Rate FiO2 06/17/17 13:05 63 06/17/17 12:00 96.4 62 17 99/53 (68) 100 06/17/17 08:00 95.9 68 17 111/64 (80) 100 06/17/17 03:44 59 06/17/17 03:00 96.7 74 18 143/59 (87) 96 06/16/17 23:49 68 06/16/17 23:16 96.7 71 18 127/57 (80) 99 06/16/17 19:14 96.7 63 18 116/52 (73) 99 I/O 06/16/17 06/16/17 06/16/17 06/17/17 06/17/17 06/17/17 07:00 15:00 23:00 07:00 15:00 23:00 Intake Total 250 ml 800 ml 240 ml 360 ml Output Total 650 ml Balance 250 ml 150 ml 240 ml 360 ml Intake Oral 250 ml 240 ml 360 ml IV Total 800 ml Output Urine Total 650 ml # Voids 2 2 3 # Bowel Movements 4 0 Result Diagram: 06/15/17 0419 06/17/17 0543 Objective Remarks GENERAL: patient sitting in chair. Appears comfortable. slow speech. However alert and oriented. SKIN: Warm and dry. HEAD: Normocephalic. EYES: No scleral icterus. No injection or drainage. NECK: Supple, trachea midline. No JVD. CARDIOVASCULAR: Regular rate and rhythm without murmurs, gallops, or rubs. RESPIRATORY: Breath sounds equal bilaterally. No accessory muscle use. GASTROINTESTINAL: Abdomen soft, non-tender, nondistended. MUSCULOSKELETAL: No cyanosis, or edema. right ac joint dl. no erythema. BACK: Nontender without obvious deformity. No CVA tenderness. A/P Assessment and Plan 77-year-old male with worsening physical deconditioning and debility admitted after a mechanical fall. Patient sustained AC joint dislocation of the right shoulder and right gluteal muscle strains. Patient will need SNF placement. //Acromioclavicular joint dislocation of the right shoulder and right gluteal muscle strain Orthopedic surgery following and recommended conservative management. Sling for comfort as needed, pain control. -Patient needs to continue rehabilitation at a half-way facility. //Frequent falls: Worsening decondition/stability. He needs rehabilitation at SNF. -PT following -Patient reports he has home PT that comes 2 times per week //Elevated troponin/chest pain Troponin remained flat at 0.12. However his chest pain continues. Improved with nitroglycerin. Review of hospital records shows he was supposed to be on Imdur and Ranexa at home. Resume Imbur and Ranexa. Consult the patient's Buoy Tender Dr. Díaz. Nitroglycerin, morphine for pain PRN // CHF Last echo done on 05/27/17 showed an EF of 45-50% -Continue home Lasix //Atrial fibrillation -Restart Xarelto. //CAD/hyperlipidemia Continue home medications -Restart antiplatelet medications. //Constipation: -Resolved after laxatives. Discharge Planning dc to snf when arrangements made. Radhames Morley MD Jun 17, 2017 17:22
[2017-06-17] MEDS: PRAVASTATIN SOD 40 MG TAB PO SCH (21:19)
[2017-06-18] VITALS (8 sets, daily range): BP systolic 99–144; BP diastolic 45–80; PULSE 50–75; RESP 17–18; TEMP 95.5–97.2; O2SAT 97–100
[2017-06-18] MEDS: ISOSORBIDE MONONITRATE 30 MG TAB PO SCH (06:16)
[2017-06-18] MEDS: NITROGLYCERIN 2% OINT 1 GM PACKET TOPICAL SCH ×3 (06:16→21:44)
[2017-06-18] MEDS: INSULIN ASPART SUPPLEMENTAL SCALE SQ SCH ×4 (08:00→21:42)
[2017-06-18] MEDS: DOCUSATE SODIUM 50 MG/SENNA 8.6 MG TAB PO SCH ×2 (09:00→21:44)
[2017-06-18] MEDS: CLOPIDOGREL 75 MG TAB PO SCH (09:38)
[2017-06-18] MEDS: FUROSEMIDE 20 MG TAB PO SCH (09:38)
[2017-06-18] MEDS: METOPROLOL TARTRATE 25 MG TAB PO SCH (09:39)
[2017-06-18] MEDS: RANOLAZINE 500 MG EXTENDED RELEASE TAB PO SCH ×2 (09:40→21:44)
[2017-06-18] MEDS: RIVAROXABAN 15 MG TAB PO SCH (09:41)
[2017-06-18] MEDS: ASPIRIN EC 81 MG TABEC PO SCH (09:41)
[2017-06-18] MEDS: SODIUM CHLORIDE 0.9% FLUSH 10 ML FLUSH IV FLUSH SCH ×2 (09:45→21:44)
--- NOTE | 2017-06-18 14:29 | PD.CARD.PN ---
Subjective Subjective Remarks No CP or SOB, feels better Objective Medications Current Medications Medications (Trade) Dose Ordered Sig/Mark Route Start Time Stop Time Status Last Admin (NS Flush) 2 ml UNSCH PRN IV FLUSH 06/14/17 21:00 (NS Flush) 2 ml BID IV FLUSH 06/14/17 21:00 06/18/17 09:45 (Tylenol) 650 mg Q4H PRN PO 06/14/17 21:00 06/17/17 03:31 (Zofran Inj) 4 mg Q6H PRN IVP 06/14/17 21:00 (Narcan Inj) 0.4 mg UNSCH PRN IV PUSH 06/14/17 21:00 (Ilda-Colace) 1 tab BID PO 06/14/17 21:00 06/17/17 21:19 (Milk Of Magnesia Liq) 30 ml Q12H PRN PO 06/14/17 21:00 (Senokot) 17.2 mg Q12H PRN PO 06/14/17 21:00 (Dulcolax Supp) 10 mg DAILY PRN RECTAL 06/14/17 21:00 (Lactulose Liq) 30 ml DAILY PRN PO 06/14/17 21:00 (Lasix) 20 mg DAILY PO 06/15/17 09:00 06/18/17 09:38 (Pravachol) 80 mg HS PO 06/15/17 21:00 06/17/17 21:19 (Nitroglycerin 2% Oint) 2 inch Q8HR TOPICAL 06/14/17 23:15 06/18/17 13:10 (Morphine Inj) 2 mg Q4H PRN IM 06/14/17 23:15 (D50w (Vial) Inj) 50 ml UNSCH PRN IV PUSH 06/15/17 02:00 (Glucagon Inj) 1 mg UNSCH PRN OTHER 06/15/17 02:00 (NovoLOG SUPPLEMENTAL SCALE) 1 ACHS SLIDING SCALE SQ 06/15/17 08:00 (Lopressor) 12.5 mg DAILY PO 06/16/17 09:00 06/18/17 09:39 (Pill Splitter) 1 ea UNSCH PRN OTHER 06/15/17 10:45 (Imdur) 30 mg DAILY@07 PO 06/16/17 10:00 06/18/17 06:16 (Ranexa) 1,000 mg Q12HR PO 06/16/17 21:00 06/18/17 09:40 (Ecotrin Ec) 81 mg DAILY PO 06/18/17 09:00 06/18/17 09:41 (Plavix) 75 mg DAILY PO 06/17/17 10:00 06/18/17 09:38 (Xarelto) 15 mg DAILY PO 06/17/17 12:00 06/18/17 09:41 Vital Signs / I&O Vital Signs Date Time Temp Pulse Resp B/P (MAP) Pulse Ox O2 Delivery O2 Flow Rate FiO2 06/18/17 12:45 128/ 128/80 (96) 06/18/17 12:00 95.5 68 17 99/45 (63) 100 06/18/17 08:00 97.2 75 17 144/73 (96) 100 06/18/17 04:34 97.1 50 18 119/57 (77) 99 06/17/17 23:05 96.7 63 18 121/59 (79) 100 06/17/17 19:14 97.2 77 18 105/54 (71) 100 06/17/17 19:05 64 06/17/17 16:00 96.9 66 17 104/51 (68) 100 I/O 06/17/17 06/17/17 06/17/17 06/18/17 06/18/17 06/18/17 07:00 15:00 23:00 07:00 15:00 23:00 Intake Total 360 ml 420 ml 480 ml 360 ml Balance 360 ml 420 ml 480 ml 360 ml Intake Oral 360 ml 420 ml 480 ml 360 ml # Voids 3 3 4 2 # Bowel Movements 0 1 1 1 Physical Exam GENERAL: In NAD SKIN: Warm and dry. HEAD: Normocephalic. EYES: No scleral icterus. No injection or drainage. NECK: Supple, trachea midline. No JVD or lymphadenopathy. CARDIOVASCULAR: Regular rate and rhythm without murmurs, gallops, or rubs. RESPIRATORY: Breath sounds equal bilaterally. No accessory muscle use. GASTROINTESTINAL: Abdomen soft, non-tender, nondistended. MUSCULOSKELETAL: No cyanosis, mild edema. Assessment and Plan Problem List: (1) Frequent falls ICD Codes: R29.6 - Repeated falls Status: Acute (2) CHF (congestive heart failure) ICD Codes: I50.9 - Heart failure, unspecified (3) CAD (coronary artery disease) ICD Codes: I25.10 - Atherosclerotic heart disease of [place] coronary artery without angina pectoris (4) Elevated troponin ICD Codes: R74.8 - Abnormal levels of other serum enzymes Status: Acute (5) A-fib ICD Codes: I48.91 - Unspecified atrial fibrillation Assessment and Plan Continue monitoring. Overall improvement. Continue metoprolol, Imdur and Ranexa. Continue anticoagulation. Increase activity, PT. F/u w Dr. Díaz after discharge. Xiomara Azul MD Jun 18, 2017 14:29
--- NOTE | 2017-06-18 16:44 | HHI.PR ---
Subjective Remarks Patient sitting on the chair he has slow speech due to what he told me CVA about 6 month ago, he looks comfortable Afebrile no short of breath Objective Vitals Vital Signs Date Time Temp Pulse Resp B/P (MAP) Pulse Ox O2 Delivery O2 Flow Rate FiO2 06/18/17 16:00 96.0 72 17 135/65 (88) 97 06/18/17 12:45 128/ 128/80 (96) 06/18/17 12:00 95.5 68 17 99/45 (63) 100 06/18/17 08:00 97.2 75 17 144/73 (96) 100 06/18/17 04:34 97.1 50 18 119/57 (77) 99 06/17/17 23:05 96.7 63 18 121/59 (79) 100 06/17/17 19:14 97.2 77 18 105/54 (71) 100 06/17/17 19:05 64 I/O 06/17/17 06/17/17 06/17/17 06/18/17 06/18/17 06/18/17 07:00 15:00 23:00 07:00 15:00 23:00 Intake Total 360 ml 420 ml 480 ml 360 ml 480 ml Balance 360 ml 420 ml 480 ml 360 ml 480 ml Intake Oral 360 ml 420 ml 480 ml 360 ml 480 ml # Voids 3 3 4 2 2 # Bowel Movements 0 1 1 1 0 Result Diagram: 06/15/17 0419 06/17/17 0543 Objective Remarks GENERAL: This is a frail elderly patient in no acute distress SKIN: No rashes, warm and dry HEAD: Atraumatic. Normocephalic. EYES: Pupils equal round and reactive. Extraocular motions intact. No scleral icterus. ENT: Nose without bleeding, or drainage, Airway patent. NECK: Trachea midline. Supple CARDIOVASCULAR: Regular rate and rhythm without murmurs, gallops, or rubs. RESPIRATORY: Fair air entry bilaterally. No wheezes, rales, or rhonchi. GASTROINTESTINAL: Abdomen soft, non-tender, nondistended. Positive bowel sounds MUSCULOSKELETAL: Right upper extremity sling applied, Extremities without clubbing, cyanosis, or edema. Pedal pulses appreciated NEUROLOGICAL: Awake and alert. Moves all extremity. Slow speech A/P Assessment and Plan 77-year-old male with worsening physical deconditioning and debility admitted after a mechanical fall. Patient sustained AC joint dislocation of the right shoulder and right gluteal muscle strains. Patient will need SNF placement. 06/18: Continue current care, awaiting arrangement for discharge placement to SNF //Acromioclavicular joint dislocation of the right shoulder and right gluteal muscle strain Orthopedic surgery following and recommended conservative management. Sling for comfort as needed, pain control. -Patient needs to continue rehabilitation at a longterm facility. //Frequent falls: Worsening decondition/stability. He needs rehabilitation at SNF. -PT following -Patient reports he has home PT that comes 2 times per week //Elevated troponin/chest pain Troponin remained flat at 0.12. However his chest pain continues. Improved with nitroglycerin. Review of hospital records shows he was supposed to be on Imdur and Ranexa at home. Resume Imbur and Ranexa. Consult the patient's Compressor Station Engineer Dr. Díaz. Nitroglycerin, morphine for pain PRN // CHF Last echo done on 05/27/17 showed an EF of 45-50% -Continue home Lasix //Atrial fibrillation -Restart Xarelto. //CAD/hyperlipidemia Continue home medications -Restart antiplatelet medications. //Constipation: -Resolved after laxatives. John Rea MD Jun 18, 2017 16:44
[2017-06-18] MEDS: PRAVASTATIN SOD 40 MG TAB PO SCH (21:44)
[2017-06-19 00:40] VITALS: BP 120/51; PULSE 70; RESP 17; TEMP 97.2; O2SAT 100
[2017-06-19 04:00] VITALS: PULSE 64
[2017-06-19 04:06] VITALS: BP 143/58; PULSE 60; RESP 17; TEMP 97.1; O2SAT 99
[2017-06-19] MEDS: ISOSORBIDE MONONITRATE 30 MG TAB PO SCH (06:04)
[2017-06-19] MEDS: NITROGLYCERIN 2% OINT 1 GM PACKET TOPICAL SCH (06:04)
[2017-06-19 08:00] VITALS: BP 131/49; PULSE 55; RESP 16; TEMP 96.6; O2SAT 100
[2017-06-19] MEDS: INSULIN ASPART SUPPLEMENTAL SCALE SQ SCH (08:00)
[2017-06-19] MEDS: CLOPIDOGREL 75 MG TAB PO SCH (08:44)
[2017-06-19] MEDS: DOCUSATE SODIUM 50 MG/SENNA 8.6 MG TAB PO SCH (08:44)
[2017-06-19] MEDS: METOPROLOL TARTRATE 25 MG TAB PO SCH (08:44)
[2017-06-19] MEDS: FUROSEMIDE 20 MG TAB PO SCH (08:44)
[2017-06-19] MEDS: RANOLAZINE 500 MG EXTENDED RELEASE TAB PO SCH (08:44)
[2017-06-19] MEDS: RIVAROXABAN 15 MG TAB PO SCH (08:45)
[2017-06-19] MEDS: ASPIRIN EC 81 MG TABEC PO SCH (08:45)
[2017-06-19] MEDS: SODIUM CHLORIDE 0.9% FLUSH 10 ML FLUSH IV FLUSH SCH (08:45)
[2017-06-19] MEDS ORDERED: METO25TA3 PO (10:20)
[2017-06-19] MEDS ORDERED: RANO500 PO (10:20)
[2017-06-19] MEDS ORDERED: ISOS30TA3 PO (10:20)
--- NOTE | 2017-06-19 12:29 | HHI.DS ---
Discharge Summary Admission Date Jun 16, 2017 at 12:50 Discharge Date: Jun 19, 2017 Admitting Diagnosis elevated troponin, greater trochanter fracture, frequent falls (1) A-fib ICD Code: I48.91 - Unspecified atrial fibrillation (2) CHF (congestive heart failure) ICD Code: I50.9 - Heart failure, unspecified (3) CAD (coronary artery disease) ICD Code: I25.10 - Atherosclerotic heart disease of [place] coronary artery without angina pectoris (4) HTN (hypertension) ICD Code: I10 - Essential (primary) hypertension (5) Acromioclavicular separation ICD Code: S43.109A - Unspecified dislocation of unspecified acromioclavicular joint, initial encounter Status: Acute (6) Aphasia ICD Code: R47.01 - Aphasia Status: Acute Procedures See below Brief History - From Admission 77-year-old male with a past medical history significant for A. 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 Patient reports falling approximately 7 times in the past 6 weeks. His last fall was 2 days ago when he lost his balance and grabbed onto an old [employer] television to try to stabilize himself. He reports he then fell to the ground and the TV fell on top of him. The patient reports right shoulder and right hip pain. Shoulder x-ray shows right acromioclavicular joint dislocation. CT of the right hip indeterminate for fracture, recommend follow-up MRI. MRI of the right hip shows no evidence of fracture with right-sided gluteus deja strain versus contusion. Patient was found to have an elevated troponin of 0.12 and endorses a 30 minute episode of substernal chest pain that occurred earlier yesterday morning. CBC/BMP: 06/15/17 0419 06/17/17 0543 Significant Findings Laboratory Tests Test 06/17/17 05:43 Random Glucose 108 MG/DL (74-106) Estimat Glomerular Filtration Rate 71 ML/MIN (>89) PE at Discharge GENERAL: This is a frail elderly patient in no acute distress SKIN: No rashes, warm and dry HEAD: Atraumatic. Normocephalic. EYES: Pupils equal round and reactive. Extraocular motions intact. No scleral icterus. ENT: Nose without bleeding, or drainage, Airway patent. NECK: Trachea midline. Supple CARDIOVASCULAR: Regular rate and rhythm without murmurs, gallops, or rubs. RESPIRATORY: Fair air entry bilaterally. No wheezes, rales, or rhonchi. GASTROINTESTINAL: Abdomen soft, non-tender, nondistended. Positive bowel sounds MUSCULOSKELETAL: Right upper extremity sling applied, Extremities without clubbing, cyanosis, or edema. Pedal pulses appreciated NEUROLOGICAL: Awake and alert. Moves all extremity. Slow speech Hospital Course 77 years old male admitted with worsening deconditioning and debilitating he had a acromioclavicular joint dislocation in the right shoulder and the right gluteal muscle strain orthopedic consulted sling placed, patient had been having frequent falls PT consulted, patient has a history of CHF have A. fib coronary artery disease and hyperlipidemia, he was managed for does condition, manager of case management working on placing patient in rehabilitation. [id number] encounter performed with the patient on discharge day, as well as physical exam, summary of hospitalization course and postdischarge plan has been D/W the patient. D/W nurse D/W manager of case management. Discharge medications reviewed and printed and signed, post discharge follow up visit with PCP and other specialist as well as Brief hospital course and discharge summary has been placed. Pt Condition on Discharge: Stable Discharge Disposition: Discharge to SNF Discharge Time: > 30 minutes Discharge Instructions DIET: Follow Instructions for: Heart Healthy Diet Activities you can perform: See Additionl Instruction Other Activity Instructions: per PT New Medications: Isosorbide Mononitrate ER (Isosorbide Mononitrate ER) 30 Mg Alanna 30 MG PO DAILY@07 for Chest Pain, #30 TAB Metoprolol Tartrate (Metoprolol Tartrate) 25 Mg Tab 12.5 MG PO DAILY for cad, #30 TAB Ranolazine ER 12 HR (Ranexa ER 12 HR) 500 Mg Tab 1000 MG PO Q12HR for Chest Pain, #60 TAB Continued Medications: Aspirin DR (Aspirin 81) 81 Mg Tabdr 81 MG PO DAILY, #30 TAB 0 Refills Cholecalciferol (Vitamin D3) 1,000 Unit Tab 400 UNITS PO DAILY for Nutritional Supplement, #1 BOTTLE 0 Refills Clopidogrel (Plavix) 75 Mg Tab 75 MG PO DAILY for Blood Clot Prevention, #30 TAB 0 Refills Furosemide (Furosemide) 20 Mg Tab 20 MG PO DAILY, #30 TAB Rivaroxaban (Xarelto) 15 Mg Tab 15 MG PO DAILY, #30 TAB Simvastatin (Simvastatin) 40 Mg Tab 40 MG PO HS for Cholesterol Management, #30 TAB 0 Refills John Rea MD Jun 19, 2017 12:29
== END 2017-06-19 12:03 | DRG 537 ==
LOC: NEPD 15:41 → NEDA 20:13 → NEPHCDU 22:33 → OBSVTOIN 06-16 12:50 → N06A 06-16 18:56
PROVIDERS: ADMIT Hospitalist; ATTEND Hospitalist
DX: S76.011A Strain of muscle, fascia and tendon of right hip, initial encounter (principal); I42.9 Cardiomyopathy, unspecified; G20 Parkinson's disease; I50.9 Heart failure, unspecified; I11.0 Hypertensive heart disease with heart failure; E11.9 Type 2 diabetes mellitus without complications; I69.320 Aphasia following cerebral infarction; R29.6 Repeated falls; W01.0XXA Fall on same level from slipping, tripping and stumbling without subsequent striking against object, initial encounter; I69.322 Dysarthria following cerebral infarction; E78.5 Hyperlipidemia, unspecified; I25.10 Atherosclerotic heart disease of native coronary artery without angina pectoris; I48.2 Chronic atrial fibrillation; K59.00 Constipation, unspecified; M19.90 Unspecified osteoarthritis, unspecified site; M50.30 Other cervical disc degeneration, unspecified cervical region; S00.93XA Contusion of unspecified part of head, initial encounter; R06.02 Shortness of breath; R26.81 Unsteadiness on feet; R74.8 Abnormal levels of other serum enzymes; S43.101A Unspecified dislocation of right acromioclavicular joint, initial encounter; Z95.2 Presence of prosthetic heart valve; Z95.5 Presence of coronary angioplasty implant and graft; Z95.1 Presence of aortocoronary bypass graft; Z79.01 Long term (current) use of anticoagulants
CPT/HCPCS: 70450; 71010; 72125; 73030; 73700; 73721; 80048; 80053; 81001; 82550; 82948; 83735; 84484; 85025; 85610; 85730; 93005; 96360; G0378; G8987-GP; G8988-GP; J7030

== ENCOUNTER 2017-07-20 14:20 | Observation (INO) | payer MEDICARE, BC ==
[~2017-07-20] VITALS: Ht 188 cm; Wt 76.0 kg
[~2017-07-20 14:20] MED LIST changes: -ACET325T PO; +ISOS30TA3 PO; +RANO500 PO
[2017-07-20 14:25] VITALS: BP 104/68; PULSE 69; RESP 16; TEMP 97.9; O2SAT 100
[2017-07-20] MEDS ORDERED: SODIUM CHLORIDE 0.9% FLUSH 10 ML FLUSH IV FLUSH PRN ×2 (15:45→19:30)
--- NOTE | 2017-07-20 15:48 | PD ---
HPI Chief Complaint: Fall Time Seen by Provider: 15:43 Travel History International Travel<30 days: No Contact w/Intl Traveler<30days: No History of Present Illness HPI 77-year-old male brought in from his private residence where he currently lives alone with a Lifeline, with recurrent falls. Patient actually called EMS on his Lifeline as he could not get up this morning. EMS assessed him and felt that he was not safe to be in his home alone. Patient is brought in for that reason. Patient recently seen for shoulder and released from rehabilitation on June 18. Patient admits to me that he does not feel safe in his home, and does not feel he can care for himself. He has multiple bruises to the thoracic cage but denies any specific point tenderness. He was unable to get up this morning which is why he called EMS on his Lifeline. He denies headache. He states progressive overall weakness. He has no known drug allergies. PFSH Past Medical History Hx Anticoagulant Therapy: Yes Asthma: No Blood Disorders: No Heart Rhythm Problems: Yes (afib) Cancer: No Cardiac Catheterization: Yes Cardiovascular Problems: Yes (HTN, CAD, CABG x4, stent, Valve Replacement) High Cholesterol: Yes Chemotherapy: No Chest Pain: Yes (currently this visit) Congestive Heart Failure: No COPD: No Cerebrovascular Accident: Yes Diabetes: Yes (type 2) Diminished Hearing: No Endocrine: No Genitourinary: Yes (pt dripples and retention) Hypertension: Yes Immune Disorder: No Musculoskeletal: Yes (FREQUENT FALLS/ right shoulder fx 6 wks ago/ current fall 2016) Neurologic: Yes (parkinsons disease) Psychiatric: No Reproductive: Yes (erctile disfuntion) Respiratory: No Radiation Therapy: No Sleep Apnea: No Thyroid Disease: No Past Surgical History Body Medical Devices: card mesh stent - baraflex Cardiac Surgery: Yes (VALVE REPLACEMENT, CABG x4) Coronary Artery Bypass Graft: Yes (X4) Coronary Stent: Yes Social History Alcohol Use: No Tobacco Use: No Substance Use: No Allergies-Medications (Allergen,Severity, Reaction): Coded Allergies: alcohol (Unverified Allergy, Severe, "MAKES ME CRAZY", 06/14/17) alcohol the drink not medical alcohol penicillin G (Unverified Allergy, Severe, Rash, 06/14/17) Reported Meds & Prescriptions Reported Meds & Active Scripts Active Isosorbide Mononitrate ER (Isosorbide Mononitrate) 30 Mg Alanna 30 Mg PO DAILY@07 Ranexa ER 12 HR (Ranolazine) 500 Mg Tab 1,000 Mg PO Q12HR Furosemide 20 Mg Tab 20 Mg PO DAILY Xarelto (Rivaroxaban) 15 Mg Tab 15 Mg PO DAILY Reported Vitamin D3 (Cholecalciferol) 1,000 Unit Tab 400 Units PO DAILY Metoprolol Tartrate 25 Mg Tab 25 Mg PO DAILY Simvastatin 40 Mg Tab 40 Mg PO HS Plavix (Clopidogrel Bisulfate) 75 Mg Tab 75 Mg PO DAILY Review of Systems Except as stated in HPI: all other systems reviewed are Neg General / Constitutional: No: Fever Eyes: No: Visual changes HENT: No: Headaches Cardiovascular: No: Chest Pain or Discomfort Respiratory: No: Shortness of Breath Gastrointestinal: No: Abdominal Pain Genitourinary: No: Dysuria Musculoskeletal: No: Pain Skin: No Rash Neurologic: No: Weakness Psychiatric: No: Depression Endocrine: No: Polydipsia Hematologic/Lymphatic: No: Easy Bruising Physical Exam Narrative GENERAL: Patient appears in no acute distress. SKIN: Warm and dry. Normal color. Decreased turgor with tenting. HEAD: Atraumatic. Normocephalic. No signs of trauma. EYES: Pupils equal and round. No scleral icterus. No injection or drainage. ENT: No nasal bleeding or discharge. Mucous membranes pink and dry. Pharynx is clear. Airway is patent. No dental injury. NECK: Trachea midline. No bony tenderness or step-off. Range of motion is full. CARDIOVASCULAR: Regular rate and rhythm. RESPIRATORY: No accessory muscle use. Clear to auscultation. Breath sounds equal bilaterally. GASTROINTESTINAL: Abdomen soft, non-tender, nondistended. Hepatic and splenic margins not palpable. MUSCULOSKELETAL: Extremities without clubbing, cyanosis, or edema. No obvious deformities. Patient has multiple old ecchymosis to the thoracic wall of multiple ages. No acute abrasions or bleeding. No obvious bony injuries noted. NEUROLOGICAL: Awake and alert. No obvious cranial nerve deficits. Motor grossly within normal limits. Five out of 5 muscle strength in the arms and legs. Patient appears parkinsonian with slow response to movement and speech. PSYCHIATRIC: Appropriate mood and affect; insight and judgment normal. Data Data Last Documented VS Vital Signs Date Time Temp Pulse Resp B/P (MAP) Pulse Ox O2 Delivery O2 Flow Rate FiO2 07/20/17 18:12 80 17 122/65 (84) 100 Room Air 07/20/17 14:25 97.9 Orders Orders Electrocardiogram (07/20/17 15:43) Ammonia (07/20/17 15:43) Complete Blood Count With Diff (07/20/17 15:43) Comprehensive Metabolic Panel (07/20/17 15:43) Creatine Kinase (Cpk) (07/20/17 15:43) Prothrombin Time / Inr (Pt) (07/20/17 15:43) Act Partial Throm Time (Ptt) (07/20/17 15:43) Troponin I (07/20/17 15:43) Thyroid Stimulating Hormone (07/20/17 15:43) Urinalysis - C+S If Indicated (07/20/17 15:43) Lactic Acid Sepsis Protocol (07/20/17 15:43) Blood Glucose (07/20/17 15:43) Ecg Monitoring (07/20/17 15:43) Iv Access Insert/Monitor (07/20/17 15:43) Cath For Specimen (07/20/17 15:43) Oximetry (07/20/17 15:43) Sodium Chloride 0.9% Flush (Ns Flush) (07/20/17 15:45) Ct Brain W/O Iv Contrast(Rout) (07/20/17 15:43) Place In Observation (07/20/17 ) Vital Signs (Adult) Q4H (07/20/17 19:22) Activity Oob With Assistance (07/20/17 19:22) Sodium Chlor 0.9% 1000 Ml Inj (Ns 1000 M (07/20/17 19:22) Sodium Chloride 0.9% Flush (Ns Flush) (07/20/17 19:30) Sodium Chloride 0.9% Flush (Ns Flush) (07/20/17 21:00) Ondansetron Inj (Zofran Inj) (07/20/17 19:30) Comprehensive Metabolic Panel (07/21/17 06:00) Complete Blood Count With Diff (07/21/17 06:00) Prothrombin Time / Inr (Pt) (07/21/17 06:00) Pt Request For Service (07/20/17 19:22) Case Management Consult (07/20/17 19:22) Pharmacologic Contraindication (07/20/17 19:22) Acetaminophen (Tylenol) (07/20/17 19:30) Acetamin-Hydrocod 325-5 Mg ([place] 5-325 (07/20/17 19:30) Morphine Inj (Morphine Inj) (07/20/17 19:30) Docusate Sodium-Senna (Ilda-Colace) (07/20/17 21:00) Magnesium Hydroxide Liq (Milk Of Magnesi (07/20/17 19:30) Sennosides (Senokot) (07/20/17 19:30) Bisacodyl Supp (Dulcolax Supp) (07/20/17 19:30) Lactulose Liq (Lactulose Liq) (07/20/17 19:30) Clopidogrel (Plavix) (07/21/17 09:00) Furosemide (Lasix) (07/21/17 09:00) Isosorbide Mononitrate (Imdur) (07/21/17 07:00) Metoprolol Tartrate (Lopressor) (07/21/17 09:00) Ranolazine Sr (Ranexa) (07/20/17 21:00) Rivaroxaban (Xarelto) (07/21/17 09:00) Pravastatin (Pravachol) (07/20/17 21:00) Admit Order (Ed Use Only) (07/20/17 19:28) Labs Laboratory Tests Test 07/20/17 16:00 07/20/17 17:35 Urine Color YELLOW Urine Turbidity CLEAR Urine pH 5.0 Urine Specific [place] 1.009 Urine Protein NEG mg/dL Urine Glucose (UA) NEG mg/dL Urine Ketones NEG mg/dL Urine Occult Blood NEG Urine Nitrite NEG Urine Bilirubin NEG Urine Urobilinogen LESS THAN 2.0 MG/DL Urine Leukocyte Esterase NEG Urine RBC 1 /hpf Urine WBC 1 /hpf Microscopic Urinalysis Comment CATH-CULT NOT IND White Blood Count 9.1 TH/MM3 Red Blood Count 3.21 MIL/MM3 Hemoglobin 9.9 GM/DL Hematocrit 29.8 % Mean Corpuscular Volume 92.8 FL Mean Corpuscular Hemoglobin 30.8 PG Mean Corpuscular Hemoglobin Concent 33.2 % Red Cell Distribution Width 14.0 % Platelet Count 226 TH/MM3 Mean Platelet Volume 8.4 FL Neutrophils (%) (Auto) 81.2 % Lymphocytes (%) (Auto) 11.2 % Monocytes (%) (Auto) 6.9 % Eosinophils (%) (Auto) 0.3 % Basophils (%) (Auto) 0.4 % Neutrophils # (Auto) 7.4 TH/MM3 Lymphocytes # (Auto) 1.0 TH/MM3 Monocytes # (Auto) 0.6 TH/MM3 Eosinophils # (Auto) 0.0 TH/MM3 Basophils # (Auto) 0.0 TH/MM3 CBC Comment DIFF FINAL Differential Comment Prothrombin Time 14.0 SEC Prothromb Time International Ratio 1.4 RATIO Activated Partial Thromboplast Time 33.7 SEC Blood Urea Nitrogen 24 MG/DL Creatinine 1.16 MG/DL Random Glucose 102 MG/DL Total Protein 6.1 GM/DL Albumin 3.5 GM/DL Calcium Level 8.9 MG/DL Alkaline Phosphatase 77 U/L Aspartate Amino Transf (AST/SGOT) 18 U/L Alanine Aminotransferase (ALT/SGPT) 16 U/L Total Bilirubin 0.8 MG/DL Sodium Level 138 MEQ/L Potassium Level 4.1 MEQ/L Chloride Level 103 MEQ/L Carbon Dioxide Level 29.0 MEQ/L Anion Gap 6 MEQ/L Estimat Glomerular Filtration Rate 61 ML/MIN Lactic Acid Level 0.9 mmol/L Ammonia LESS THAN 10 MCMOL/L Total Creatine Kinase 82 U/L Troponin I LESS THAN 0.02 NG/ML Thyroid Stimulating Hormone 3rd Gen 0.782 uIU/ML [facility] Medical Decision Making Medical Screen Exam Complete: Yes Emergency Medical Condition: Yes Differential Diagnosis Recurrent falls. Altered mental status. Electrolyte imbalance. Weakness. Dehydration. Parkinson's. History CVA. Narrative Course Patient appears medically stable at time of exam. Labs ordered including ABC, CMP, creatinine kinase, PT PTT and INR, troponin, thyroid, urinalysis, lactic acid, and ammonia. CT of the head is ordered. EKG and chest x-ray is ordered as well. Patient is awaiting mental bed placement. Condition: Stable Jordon Marmolejo Jul 20, 2017 15:48
--- NOTE | 2017-07-20 17:11 | RADRPT ---
EXAM DATE/TIME: 07/20/2017 16:41 [place] COMPARISON: CT BRAIN W/O CONTRAST, June 14, 2017, 18:48. INDICATIONS : Falls. RADIATION DOSE: 53.76 CTDIvol (mGy) ; Tabletop CT Head MEDICAL HISTORY : Cerebrovascular disease. Cardiovascular disease Hypertension.Diabetes SURGICAL HISTORY : CABG ENCOUNTER: Initial ACUITY: 1 day PAIN SCALE: 0/10 LOCATION: cranial TECHNIQUE: Multiple contiguous axial images were obtained of the head. Using automated exposure control and adj ustment of the mA and/or kV according to patient size, radiation dose was kept as low as reasonably a chievable to obtain optimal diagnostic quality images. DICOM format image data is available electro nically for review and comparison. FINDINGS: CEREBRUM: Ventricles, sulci, and cisterns are diffusely prominent indicating diffuse atrophy. No significant in terval change.. No evidence of midline shift, mass lesion, hemorrhage or acute infarction. No extra -axial fluid collections are seen. POSTERIOR FOSSA: The cerebellum and brainstem are intact. The 4th ventricle is midline. The cerebellopontine angle i s unremarkable. EXTRACRANIAL: The visualized portion of the orbits is intact. SKULL: The calvaria is intact. No evidence of skull fracture. CONCLUSION: Age-related findings. No acute intracranial findings. Guzman Nicholas MD on July 20, 2017 at 17:07 Board Certified Radiologist. This report was verified electronically.
[2017-07-20 17:58] LABS: AUTOMATED NEUTROPHIL # 7.4 TH/MM3 (1.8-7.7); BASOPHIL % 0.4 % (0.0-2.0); EOSINOPHIL % 0.3 % (0.0-4.0); HEMATOCRIT 29.8 % (39.0-51.0); HEMOGLOBIN 9.9 GM/DL (13.0-17.0); LYMPH % 11.2 % (9.0-44.0); MEAN CELL VOLUME 92.8 FL (80.0-100.0); MEAN CORPUSCULAR HEMOGLOBIN 30.8 PG (27.0-34.0); MEAN CORPUSCULAR HGB CONC 33.2 % (32.0-36.0); MEAN PLATELET VOLUME 8.4 FL (7.0-11.0); MONO % 6.9 % (0.0-8.0); MONOCYTE # 0.6 TH/MM3 (0-0.9); NEUT % 81.2 % (16.0-70.0); PLATELET COUNT 226 TH/MM3 (150-450); RED BLOOD COUNT 3.21 MIL/MM3 (4.50-5.90); WHITE BLOOD COUNT 9.1 TH/MM3 (4.0-11.0)
[2017-07-20 18:07] LABS: INTERNATIONAL NORMALIZED RATIO 1.4 RATIO
[2017-07-20 18:12] VITALS: BP 122/65; PULSE 80; RESP 17; O2SAT 100
[2017-07-20 18:23] LABS: ALBUMIN 3.5 GM/DL (3.4-5.0); AST (GOT) 18 U/L (15-37); BLOOD UREA NITROGEN 24 MG/DL (7-18); CALCIUM 8.9 MG/DL (8.5-10.1); CHLORIDE 103 MEQ/L (98-107); CREATININE 1.16 MG/DL (0.60-1.30); GLOMERULAR FILTRATION RATE 61 ML/MIN (>89); GLUCOSE,RANDOM 102 MG/DL (74-106); SODIUM (NA) 138 MEQ/L (136-145)
[2017-07-20 18:24] LABS: ALT (GPT) 16 U/L (12-78)
[2017-07-20 18:33] LABS: ALKALINE PHOSPHATASE 77 U/L (45-117); TOTAL BILIRUBIN ADULT 0.8 MG/DL (0.2-1.0); TOTAL PROTEIN 6.1 GM/DL (6.4-8.2); TROPONIN I LESS THAN 0.02 NG/ML (0.02-0.05)
--- NOTE | 2017-07-20 18:36 | PD ---
Physical Exam Date Seen by Provider: Jul 20, 2017 Narrative Patient presents from home for multiple falls. He has Parkinson's disease and lives at home alone. He had a fall today. He used his lifeline to summons help. Data Data Last Documented VS Vital Signs Date Time Temp Pulse Resp B/P (MAP) Pulse Ox O2 Delivery O2 Flow Rate FiO2 07/20/17 18:12 80 17 122/65 (84) 100 Room Air 07/20/17 14:25 97.9 Orders Orders Electrocardiogram (07/20/17 15:43) Ammonia (07/20/17 15:43) Complete Blood Count With Diff (07/20/17 15:43) Comprehensive Metabolic Panel (07/20/17 15:43) Creatine Kinase (Cpk) (07/20/17 15:43) Prothrombin Time / Inr (Pt) (07/20/17 15:43) Act Partial Throm Time (Ptt) (07/20/17 15:43) Troponin I (07/20/17 15:43) Thyroid Stimulating Hormone (07/20/17 15:43) Urinalysis - C+S If Indicated (07/20/17 15:43) Lactic Acid Sepsis Protocol (07/20/17 15:43) Blood Glucose (07/20/17 15:43) Ecg Monitoring (07/20/17 15:43) Iv Access Insert/Monitor (07/20/17 15:43) Cath For Specimen (07/20/17 15:43) Oximetry (07/20/17 15:43) Sodium Chloride 0.9% Flush (Ns Flush) (07/20/17 15:45) Ct Brain W/O Iv Contrast(Rout) (07/20/17 15:43) Place In Observation (07/20/17 ) Vital Signs (Adult) Q4H (07/20/17 19:22) Activity Oob With Assistance (07/20/17 19:22) Diet Regular Basic (07/21/17 Breakfast) Sodium Chlor 0.9% 1000 Ml Inj (Ns 1000 M (07/20/17 19:22) Sodium Chloride 0.9% Flush (Ns Flush) (07/20/17 19:30) Sodium Chloride 0.9% Flush (Ns Flush) (07/20/17 21:00) Ondansetron Inj (Zofran Inj) (07/20/17 19:30) Comprehensive Metabolic Panel (07/21/17 06:00) Complete Blood Count With Diff (07/21/17 06:00) Prothrombin Time / Inr (Pt) (07/21/17 06:00) Pt Request For Service (07/20/17 19:22) Case Management Consult (07/20/17 19:22) Pharmacologic Contraindication (07/20/17 19:22) Acetaminophen (Tylenol) (07/20/17 19:30) Acetamin-Hydrocod 325-5 Mg ([place] 5-325 (07/20/17 19:30) Morphine Inj (Morphine Inj) (07/20/17 19:30) Docusate Sodium-Senna (Ilda-Colace) (07/20/17 21:00) Magnesium Hydroxide Liq (Milk Of Magnesi (07/20/17 19:30) Sennosides (Senokot) (07/20/17 19:30) Bisacodyl Supp (Dulcolax Supp) (07/20/17 19:30) Lactulose Liq (Lactulose Liq) (07/20/17 19:30) Clopidogrel (Plavix) (07/21/17 09:00) Furosemide (Lasix) (07/21/17 09:00) Isosorbide Mononitrate (Imdur) (07/21/17 07:00) Metoprolol Tartrate (Lopressor) (07/21/17 09:00) Ranolazine Sr (Ranexa) (07/20/17 21:00) Rivaroxaban (Xarelto) (07/21/17 09:00) (Nf) Simvastatin (07/20/17 21:00) Labs Laboratory Tests Test 07/20/17 16:00 07/20/17 17:35 Urine Color YELLOW Urine Turbidity CLEAR Urine pH 5.0 Urine Specific [place] 1.009 Urine Protein NEG mg/dL Urine Glucose (UA) NEG mg/dL Urine Ketones NEG mg/dL Urine Occult Blood NEG Urine Nitrite NEG Urine Bilirubin NEG Urine Urobilinogen LESS THAN 2.0 MG/DL Urine Leukocyte Esterase NEG Urine RBC 1 /hpf Urine WBC 1 /hpf Microscopic Urinalysis Comment CATH-CULT NOT IND White Blood Count 9.1 TH/MM3 Red Blood Count 3.21 MIL/MM3 Hemoglobin 9.9 GM/DL Hematocrit 29.8 % Mean Corpuscular Volume 92.8 FL Mean Corpuscular Hemoglobin 30.8 PG Mean Corpuscular Hemoglobin Concent 33.2 % Red Cell Distribution Width 14.0 % Platelet Count 226 TH/MM3 Mean Platelet Volume 8.4 FL Neutrophils (%) (Auto) 81.2 % Lymphocytes (%) (Auto) 11.2 % Monocytes (%) (Auto) 6.9 % Eosinophils (%) (Auto) 0.3 % Basophils (%) (Auto) 0.4 % Neutrophils # (Auto) 7.4 TH/MM3 Lymphocytes # (Auto) 1.0 TH/MM3 Monocytes # (Auto) 0.6 TH/MM3 Eosinophils # (Auto) 0.0 TH/MM3 Basophils # (Auto) 0.0 TH/MM3 CBC Comment DIFF FINAL Differential Comment Prothrombin Time 14.0 SEC Prothromb Time International Ratio 1.4 RATIO Activated Partial Thromboplast Time 33.7 SEC Blood Urea Nitrogen 24 MG/DL Creatinine 1.16 MG/DL Random Glucose 102 MG/DL Total Protein 6.1 GM/DL Albumin 3.5 GM/DL Calcium Level 8.9 MG/DL Alkaline Phosphatase 77 U/L Aspartate Amino Transf (AST/SGOT) 18 U/L Alanine Aminotransferase (ALT/SGPT) 16 U/L Total Bilirubin 0.8 MG/DL Sodium Level 138 MEQ/L Potassium Level 4.1 MEQ/L Chloride Level 103 MEQ/L Carbon Dioxide Level 29.0 MEQ/L Anion Gap 6 MEQ/L Estimat Glomerular Filtration Rate 61 ML/MIN Lactic Acid Level 0.9 mmol/L Ammonia LESS THAN 10 MCMOL/L Total Creatine Kinase 82 U/L Troponin I LESS THAN 0.02 NG/ML Thyroid Stimulating Hormone 3rd Gen 0.782 uIU/ML MDM Supervised Visit with MIGUEL: Yes Narrative Course Patient presents for evaluation of multiple falls. He is not safe to live at home alone. CBC & BMP Diagram 07/20/17 17:35 Albumin 3.5, Calcium Level 8.9, Aspartate Amino Transf (AST/SGOT) 18, Alanine Aminotransferase (ALT/SGPT) [address] 07/20/17 [id number] Signed Impressions: Service Date/Time: Thursday, July 20, 2017 16:41 - CONCLUSION: Age-related findings. No acute intracranial findings. Guzman Nicholas MD UA neg. This is a patient with Parkinson's disease who lives at home alone and falls frequently. He is not a safe discharge. Diagnosis Primary Impression: Frequent falls Admitting Information Admitting Physician Requests: Admit Condition: Stable Tammie Ryenolds MD Jul 20, 2017 18:36
[2017-07-20 18:50] LABS: BILIRUBIN, URINE NEG (NEG); BLOOD, URINE NEG (NEG); GLUCOSE,URINE NEG (NEG); KETONE, URINE NEG (NEG); NITRITE,URINE NEG (NEG); URINE COLOR YELLOW (YELLW/STRAW); URINE LEUKOCYTE ESTERASE NEG (NEG)
--- NOTE | 2017-07-20 19:26 | HHI.HP ---
[facility] Robert King) Mai Laws MD Admission Diagnosis Diagnoses: (1) Frequent falls Diagnosis: Principal (2) Dehydration Diagnosis: Principal (3) A-fib Diagnosis: Principal (4) DM (diabetes mellitus) Diagnosis: Principal Travel History International Travel<30 Days: No Contact w/Intl Traveler <30 Da: No Traveled to Known Affected Are: No History of Present Illness This is a 77-year-old male with PMH of HTN, A. fib on Xarelto, CHF (Echo w/ EF 45-50%), DM, h/o CVA who was brought to the ER by EMS after fall. Pt states he's had recurrent falls since being discharged from Rehab in May. Previous admit 06/16-06/19/17 for c/o right shoulder pain after fall, found to have acromioclavicular separation, s/p eval by Ortho, no surgical intervention needed. Sent to Rehab after hospitalization, now d/c'd home from Rehab. Lives alone, ambulates w/ walker. Reports multiple falls since that time, fall yesterday and another fall today. Denies LOC or head trauma. Does note right shoulder pain, 6/10, intermittent, worse w/ movement. BP 136/61, HR 58, O2 sat 99% on RA, Afebrile. CBC essentially at baseline. History unremarkable except for BUN 24. GFR 61. Troponin negative. INR 1.4. UA negative. CT Head with no acute findings. Review of Systems Except as stated in HPI: all other systems reviewed are Neg ROS: 14 point review of systems otherwise negative. Past Family Social History Past Medical History PMH: HTN, A. fib on Xarelto, CHF (Echo 05/27/17 w/ EF 45-50%), DM, h/o CVA Past Surgical History PAST SURGICAL HISTORY: Valve Replacement, CABG Allergies: Coded Allergies: alcohol (Unverified Allergy, Severe, "MAKES ME CRAZY", 06/14/17) alcohol the drink not medical alcohol penicillin G (Unverified Allergy, Severe, Rash, 06/14/17) Family History PAST FAMILY HISTORY: Reviewed. No h/o DM or CAD Social History PAST SOCIAL HISTORY: Negative for alcohol, tobacco or drugs. Physical Exam Vital Signs Vital Signs Date Time Temp Pulse Resp B/P (MAP) Pulse Ox O2 Delivery O2 Flow Rate FiO2 07/20/17 18:12 80 17 122/65 (84) 100 Room Air 07/20/17 14:25 97.9 69 16 104/68 (80) 100 Physical Exam PE: GENERAL: Very pleasant elderly white male in no acute distress. Slow to speak HEENT: PERRLA, EOMI. No scleral icterus or conjunctival pallor. No lid lag or facial droop. CARDIOVASCULAR: Irreguarly irregular, in A-fib, rate controlled. No obvious murmurs to auscultation. No chest tenderness to palpation. RESPIRATORY: No obvious rhonchi or wheezing. Clear to auscultation. Breath sounds equal bilaterally. GASTROINTESTINAL: Abdomen soft, non-tender, nondistended. BS normal. MUSCULOSKELETAL: Extremities without clubbing, cyanosis, or edema. No obvious deformities. Right shoulder w/ no tenderness to palpation NEUROLOGICAL: Awake, alert and oriented x4. No focal neurologic deficits. Moving both upper and lower extremities spontaneously. Laboratory Laboratory Tests Test 07/20/17 16:00 07/20/17 17:35 Urine Color YELLOW Urine Turbidity CLEAR Urine pH 5.0 Urine Specific [place] 1.009 Urine Protein NEG Urine Glucose (UA) NEG Urine Ketones NEG Urine Occult Blood NEG Urine Nitrite NEG Urine Bilirubin NEG Urine Urobilinogen LESS THAN 2.0 Urine Leukocyte Esterase NEG Urine RBC 1 Urine WBC 1 Microscopic Urinalysis Comment CATH-CULT NOT IND White Blood Count 9.1 Red Blood Count 3.21 Hemoglobin 9.9 Hematocrit 29.8 Mean Corpuscular Volume 92.8 Mean Corpuscular Hemoglobin 30.8 Mean Corpuscular Hemoglobin Concent 33.2 Red Cell Distribution Width 14.0 Platelet Count 226 Mean Platelet Volume 8.4 Neutrophils (%) (Auto) 81.2 Lymphocytes (%) (Auto) 11.2 Monocytes (%) (Auto) 6.9 Eosinophils (%) (Auto) 0.3 Basophils (%) (Auto) 0.4 Neutrophils # (Auto) 7.4 Lymphocytes # (Auto) 1.0 Monocytes # (Auto) 0.6 Eosinophils # (Auto) 0.0 Basophils # (Auto) 0.0 CBC Comment DIFF FINAL Differential Comment Prothrombin Time 14.0 Prothromb Time International Ratio 1.4 Activated Partial Thromboplast Time 33.7 Blood Urea Nitrogen 24 Creatinine 1.16 Random Glucose 102 Total Protein 6.1 Albumin 3.5 Calcium Level 8.9 Alkaline Phosphatase 77 Aspartate Amino Transf (AST/SGOT) 18 Alanine Aminotransferase (ALT/SGPT) 16 Total Bilirubin 0.8 Sodium Level 138 Potassium Level 4.1 Chloride Level 103 Carbon Dioxide Level 29.0 Anion Gap 6 Estimat Glomerular Filtration Rate 61 Lactic Acid Level 0.9 Ammonia LESS THAN 10 Total Creatine Kinase 82 Troponin I LESS THAN 0.02 Thyroid Stimulating Hormone 3rd Gen 0.782 Result Diagram: 07/20/17 17307/20/171734 Caprinzaire VTE Risk Assessment Renatorinzaire VTE Risk Assessment: No/Low Risk (score <= 1) Caprini Risk Assessment Model Point Value = 1 Point Value = 2 Point Value = 3 Point Value = 5 Age 41-60 Minor surgery BMI > 25 kg/m2 Swollen legs Varicose veins or History of unexplained or recurrent spontaneous Oral contraceptives or hormone replacement Sepsis (< 1 month) Serious lung disease, including pneumonia (< 1 month) Abnormal pulmonary function Acute myocardial infarction Congestive heart failure (< 1 month) History of inflammatory bowel disease Medical patient at bed rest Age 61-74 Arthroscopic surgery Major open surgery (> 45 min) Laparoscopic surgery (> 45 min) Malignancy Confined to bed (> 72 hours) Immobilizing plaster cast Central venous access Age >= 75 History of VTE Family history of VTE Factor V Leiden Prothrombin [id number] Lupus anticoagulant Anticardiolipin antibodies Elevated serum homocysteine Heparin-induced thrombocytopenia Other congenital or acquired thrombophilia Stroke (< 1 month) Elective arthroplasty Hip, pelvis, or leg fracture Acute spinal cord injury (< 1 month) Prophylaxis Regimen Total Risk Factor Score Risk Level Prophylaxis Regimen 0-1 Low Early ambulation 2 Moderate Order ONE of the following: *Sequential Compression Device (SCD) *Heparin 5000 units SQ BID 3-4 Higher Order ONE of the following medications: *Heparin 5000 units SQ TID *Enoxaparin/Lovenox 40 mg SQ daily (WT < 150 kg, CrCl > 30 mL/min) *Enoxaparin/Lovenox 30 mg SQ daily (WT < 150 kg, CrCl > 10-29 mL/min) *Enoxaparin/Lovenox 30 mg SQ BID (WT < 150 kg, CrCl > 30 mL/min) AND/OR *Sequential Compression Device (SCD) 5 or more Highest Order ONE of the following medications: *Heparin 5000 units SQ TID (Preferred with Epidurals) *Enoxaparin/Lovenox 40 mg SQ daily (WT < 150 kg, CrCl > 30 mL/min) *Enoxaparin/Lovenox 30 mg SQ daily (WT < 150 kg, CrCl > 10-29 mL/min) *Enoxaparin/Lovenox 30 mg SQ BID (WT < 150 kg, CrCl > 30 mL/min) AND *Sequential Compression Device (SCD) Assessment and Plan Problem List: (1) Frequent falls ICD Code: R29.6 - Repeated falls Status: Acute (2) Dehydration ICD Code: E86.0 - Dehydration (3) A-fib ICD Code: I48.91 - Unspecified atrial fibrillation (4) DM (diabetes mellitus) ICD Code: E11.9 - Type 2 diabetes mellitus without complications Assessment and Plan A/P: 1. Falls: Frequent. Likely multifactorial, secondary to deconditioning, peripheral neuropathy, and possible early Parkinson's Disease. CT Head w/ no acute findings, images reviewed by me. Follows w/ Dr. Díaz, pt states he was recommended to follow w/ Neurology however has not been established. Consult Neuro for further eval of Parkinson's which may be contributing to falls. Check B12/folate. PT for eval/tx. Case Management for assistance w/ placement as pt lives alone. 2. Dehydration: BUN 21, GFR 61. U/a negative. IVF for hydration-caution w/ h /o CHF, no acute fluid overload. Repeat labs in am. 3. DM: Diet controlled, reports peripheral neuropathy. Check Hgb A1c, sliding scale as needed. 4. A-fib: Chronic. Rate controlled. Resume home medications. 5. DVT Prophylaxis: On Xarelto 6. Social work for d/c planning as needed. 7. Case discussed w/ ER physician at length, labs/records/imaging reviewed by me. Daksha Tobar MD Jul 20, 2017 19:26
[2017-07-20] MEDS ORDERED: ONDANSETRON HCL 4 MG/2 ML VIAL IVP PRN (19:30)
[2017-07-20] MEDS ORDERED: MORPHINE SULFATE 2 MG/ML INJ IV PUSH PRN (19:30)
[2017-07-20] MEDS ORDERED: BISACODYL 10 MG SUPP RECTAL PRN (19:30)
[2017-07-20] MEDS ORDERED: ACETAMINOPHEN 325 MG TAB PO PRN (19:30)
[2017-07-20] MEDS ORDERED: GADODIAMIDE PF 287 MG/ML 5 ML VIAL (for RAD MRI) IVCONTRAST ONE (19:31)
[2017-07-20] MEDS: SODIUM CHLOR 0.9% 1000 ML INJ 1,000 ML IV SCH (19:51)
[2017-07-20 19:53] VITALS: BP 136/61; PULSE 58; RESP 17; TEMP 98.5; O2SAT 99
[2017-07-20 20:30] VITALS: BP 129/58; PULSE 86; RESP 18; TEMP 97.7; O2SAT 100
[2017-07-20] MEDS: SODIUM CHLORIDE 0.9% FLUSH 10 ML FLUSH IV FLUSH SCH (21:00)
[2017-07-20] MEDS: PRAVASTATIN SOD 80 MG TAB PO SCH (21:24)
[2017-07-20] MEDS: DOCUSATE SODIUM 50 MG/SENNA 8.6 MG TAB PO SCH (21:24)
[2017-07-20] MEDS: ACETAMINOPHEN/HYDROcodone 325 MG/5 MG TAB PO PRN (21:34)
[2017-07-20] MEDS: RANOLAZINE 500 MG EXTENDED RELEASE TAB PO SCH (21:54)
[2017-07-21] VITALS (7 sets, daily range): BP systolic 106–133; BP diastolic 49–60; PULSE 56–64; RESP 15–18; TEMP 95.1–96.2; O2SAT 95–100
[2017-07-21 06:27] LABS: AUTOMATED NEUTROPHIL # 2.9 TH/MM3 (1.8-7.7); BASOPHIL % 0.7 % (0.0-2.0); EOSINOPHIL # 0.2 TH/MM3 (0-0.4); EOSINOPHIL % 3.9 % (0.0-4.0); HEMOGLOBIN 9.2 GM/DL (13.0-17.0); LYMPHOCYTE # 1.3 TH/MM3 (1.0-4.8); MEAN CELL VOLUME 92.2 FL (80.0-100.0); MEAN CORPUSCULAR HEMOGLOBIN 31.5 PG (27.0-34.0); MEAN CORPUSCULAR HGB CONC 34.2 % (32.0-36.0); MEAN PLATELET VOLUME 8.9 FL (7.0-11.0); MONO % 10.2 % (0.0-8.0); MONOCYTE # 0.5 TH/MM3 (0-0.9); NEUT % 59.2 % (16.0-70.0); PLATELET COUNT 193 TH/MM3 (150-450); RED BLOOD COUNT 2.93 MIL/MM3 (4.50-5.90); RED CELL DISTRIBUTION WIDTH 14.1 % (11.6-17.2); WHITE BLOOD COUNT 4.9 TH/MM3 (4.0-11.0)
[2017-07-21 06:35] LABS: INTERNATIONAL NORMALIZED RATIO 1.3 RATIO; PROTHROMBIN TIME - PATIENT 12.8 SEC (9.8-11.6)
[2017-07-21] MEDS: ISOSORBIDE MONONITRATE 30 MG TAB PO SCH (06:39)
[2017-07-21 07:19] LABS: ALBUMIN 2.9 GM/DL (3.4-5.0); ALT (GPT) 12 U/L (12-78); AST (GOT) 17 U/L (15-37); BLOOD UREA NITROGEN 21 MG/DL (7-18); CALCIUM 8.1 MG/DL (8.5-10.1); CHLORIDE 105 MEQ/L (98-107); GLOMERULAR FILTRATION RATE 72 ML/MIN (>89); GLUCOSE,RANDOM 90 MG/DL (74-106); SODIUM (NA) 139 MEQ/L (136-145)
[2017-07-21 07:31] LABS: ALKALINE PHOSPHATASE 62 U/L (45-117); FOLATE 18.2 NG/ML (3.1-17.5); TOTAL BILIRUBIN ADULT 0.6 MG/DL (0.2-1.0); TOTAL PROTEIN 5.7 GM/DL (6.4-8.2)
[2017-07-21] MEDS: SODIUM CHLOR 0.9% 1000 ML INJ 1,000 ML IV SCH ×4 (07:58→22:32)
[2017-07-21] MEDS ORDERED: METOPROLOL TARTRATE 25 MG TAB PO SCH (09:00)
[2017-07-21] MEDS: SODIUM CHLORIDE 0.9% FLUSH 10 ML FLUSH IV FLUSH SCH ×2 (09:00→21:00)
[2017-07-21] MEDS: CLOPIDOGREL 75 MG TAB PO SCH (09:04)
[2017-07-21] MEDS: DOCUSATE SODIUM 50 MG/SENNA 8.6 MG TAB PO SCH ×2 (09:04→20:59)
[2017-07-21] MEDS: RIVAROXABAN 15 MG TAB PO SCH (09:04)
[2017-07-21] MEDS: FUROSEMIDE 20 MG TAB PO SCH (09:05)
[2017-07-21] MEDS: MAGNESIUM HYDROXIDE SUSP 30 ML CUP PO PRN (09:05)
[2017-07-21] MEDS: RANOLAZINE 500 MG EXTENDED RELEASE TAB PO SCH ×2 (09:05→20:59)
[2017-07-21] MEDS: ACETAMINOPHEN/HYDROcodone 325 MG/5 MG TAB PO PRN (09:05)
--- NOTE | 2017-07-21 09:39 | HHI.PR ---
Subjective Remarks This is a pleasant 77 y/o male with Hypertensin, Atrial Fibrillation on Xarelto , CHF echocardiogram 05/27/17 EF 45-50%, DM II, CVA by history, brought in to ER bu EMS after Fall, Pt states he's had recurrent falls since being discharged from Rehab in May. Previous admit 06/16-06/19/17 for c/o right shoulder pain after fall, found to have acromioclavicular separation, s/p eval by Ortho, no surgical intervention needed. Sent to Rehab after hospitalization , now d/c'd home from Rehab. Lives alone, ambulates w/ walker. Reports multiple falls since that time, fall yesterday and another fall today. Denies LOC or head trauma. Does note right shoulder pain, 6/10, intermittent, worse w/ movement. BP 136/61, HR 58, O2 sat 99% on RA, Afebrile. CBC essentially at baseline. History unremarkable except for BUN 24. GFR 61. Troponin negative. INR 1.4. UA negative. CT Head with no acute findings. 07/21: Seen in his bedroom, discussed with nurse Miss Deras, he is been consulted to neurology specialist Doctor Adolfo Alvarenga, he has long history of alcoholism, Stroke with some right arm symptoms and dysarthria, started on Sinemet, Asked for MRI of the brain, EEG, additional blood work, Asked for thoracic and Lumbosacral x rays to rule out fractures, No nausea, vomit or diarrhea. Objective Vital Signs Date Time Temp Pulse Resp B/P (MAP) Pulse Ox O2 Delivery O2 Flow Rate FiO2 07/21/17 04:00 96.2 59 18 106/49 (68) 97 07/21/17 00:00 95.4 64 16 107/53 (71) 100 07/20/17 22:43 Room Air 07/20/17 22:15 18 07/20/17 20:30 97.7 86 18 129/58 (81) 100 07/20/17 20:16 07/20/17 19:53 98.5 58 17 136/61 (86) 99 Room Air 07/20/17 18:12 80 17 122/65 (84) 100 Room Air 07/20/17 14:25 97.9 69 16 104/68 (80) 100 I/O 07/20/17 07/20/17 07/20/17 07/21/17 07/21/17 07/21/17 07:00 15:00 23:00 07:00 15:00 23:00 Intake Total 240 ml 120 ml Balance 240 ml 120 ml Intake Oral 240 ml 120 ml # Voids 1 1 # Bowel Movements 0 0 Result Diagram: 07/21/17 0445 07/21/17 0445 Imaging Last Impressions Head CT 07/20/17 1543 Signed Impressions: Service Date/Time: Thursday, July 20, 2017 16:41 - CONCLUSION: Age-related findings. No acute intracranial findings. Guzman Nicholas MD Procedures None Other Results Laboratory Tests Test 07/20/17 16:00 07/20/17 17:35 07/21/17 04:45 Urine Color YELLOW Urine Turbidity CLEAR Urine pH 5.0 Urine Specific [place] 1.009 Urine Protein NEG mg/dL Urine Glucose (UA) NEG mg/dL Urine Ketones NEG mg/dL Urine Occult Blood NEG Urine Nitrite NEG Urine Bilirubin NEG Urine Urobilinogen LESS THAN 2.0 MG/DL Urine Leukocyte Esterase NEG Urine RBC 1 /hpf Urine WBC 1 /hpf Microscopic Urinalysis Comment CATH-CULT NOT IND Activated Partial Thromboplast Time 33.7 SEC Lactic Acid Level 0.9 mmol/L Ammonia LESS THAN 10 MCMOL/L Total Creatine Kinase 82 U/L Troponin I LESS THAN 0.02 NG/ML Thyroid Stimulating Hormone 3rd Gen 0.782 uIU/ML White Blood Count 4.9 TH/MM3 Red Blood Count 2.93 MIL/MM3 Hemoglobin 9.2 GM/DL Hematocrit 27.0 % Mean Corpuscular Volume 92.2 FL Mean Corpuscular Hemoglobin 31.5 PG Mean Corpuscular Hemoglobin Concent 34.2 % Red Cell Distribution Width 14.1 % Platelet Count 193 TH/MM3 Mean Platelet Volume 8.9 FL Neutrophils (%) (Auto) 59.2 % Lymphocytes (%) (Auto) 26.0 % Monocytes (%) (Auto) 10.2 % Eosinophils (%) (Auto) 3.9 % Basophils (%) (Auto) 0.7 % Neutrophils # (Auto) 2.9 TH/MM3 Lymphocytes # (Auto) 1.3 TH/MM3 Monocytes # (Auto) 0.5 TH/MM3 Eosinophils # (Auto) 0.2 TH/MM3 Basophils # (Auto) 0.0 TH/MM3 CBC Comment DIFF FINAL Differential Comment Prothrombin Time 12.8 SEC Prothromb Time International Ratio 1.3 RATIO Blood Urea Nitrogen 21 MG/DL Creatinine 1.00 MG/DL Random Glucose 90 MG/DL Total Protein 5.7 GM/DL Albumin 2.9 GM/DL Calcium Level 8.1 MG/DL Alkaline Phosphatase 62 U/L Aspartate Amino Transf (AST/SGOT) 17 U/L Alanine Aminotransferase (ALT/SGPT) 12 U/L Total Bilirubin 0.6 MG/DL Sodium Level 139 MEQ/L Potassium Level 3.6 MEQ/L Chloride Level 105 MEQ/L Carbon Dioxide Level 27.0 MEQ/L Anion Gap 7 MEQ/L Estimat Glomerular Filtration Rate 72 ML/MIN Vitamin B12 Level 551 PG/ML Folate 18.2 NG/ML Objective Remarks GENERAL: No acute distress. HEENT: PERRLA, EOMI. No scleral icterus or conjunctival pallor. No lid lag or facial droop. CARDIOVASCULAR: Irreguarly irregular, in A-fib, rate controlled. No obvious murmurs to auscultation. No chest tenderness to palpation. RESPIRATORY: No obvious rhonchi or wheezing. Clear to auscultation. Breath sounds equal bilaterally. GASTROINTESTINAL: Abdomen soft, non-tender, nondistended. BS normal. MUSCULOSKELETAL: Extremities without clubbing, cyanosis, or edema. No obvious deformities. Right shoulder w/ no tenderness to palpation NEUROLOGICAL: Awake, alert and oriented x4. No focal neurologic deficits. Moving both upper and lower extremities spontaneously. Medications and IVs Current Medications Medications (Trade) Dose Ordered Sig/Mark Route Start Time Stop Time Status Last Admin (NS Flush) 2 ml UNSCH PRN IV FLUSH 07/20/17 15:45 Sodium Chloride 1,000 ml @ 75 mls/hr [id number] IV 07/20/17 19:22 07/20/17 19:51 (NS Flush) 2 ml UNSCH PRN IV FLUSH 07/20/17 19:30 (NS Flush) 2 ml BID IV FLUSH 07/20/17 21:00 (Zofran Inj) 4 mg Q6H PRN IVP 07/20/17 19:30 (Tylenol) 650 mg Q6H PRN PO 07/20/17 19:30 (Marshall 5-325 Mg) 1 tab Q4H PRN PO 07/20/17 19:30 07/21/17 09:05 (Morphine Inj) 2 mg Q3H PRN IV PUSH 07/20/17 19:30 (Ilda-Colace) 1 tab BID PO 07/20/17 21:00 07/21/17 09:04 (Milk Of Magnesia Liq) 30 ml Q12H PRN PO 07/20/17 19:30 07/21/17 09:05 (Senokot) 17.2 mg Q12H PRN PO 07/20/17 19:30 (Dulcolax Supp) 10 mg DAILY PRN RECTAL 07/20/17 19:30 (Lactulose Liq) 30 ml DAILY PRN PO 07/20/17 19:30 (Plavix) 75 mg DAILY PO 07/21/17 09:00 07/21/17 09:04 (Lasix) 20 mg DAILY PO 07/21/17 09:00 07/21/17 09:05 (Imdur) 30 mg DAILY@07 PO 07/21/17 07:00 07/21/17 06:39 (Lopressor) 25 mg DAILY PO 07/21/17 09:00 07/21/17 09:05 (Ranexa) 1,000 mg Q12HR PO 07/20/17 21:00 07/21/17 09:05 (Xarelto) 15 mg DAILY PO 07/21/17 09:00 07/21/17 09:04 (Pravachol) 80 mg HS PO 07/20/17 21:00 07/20/17 21:24 Sodium Chloride 1,000 ml @ 75 mls/hr [id number] IV 07/21/17 09:12 (Sinemet 25-100 Mg) 1 tab TID@0800,1200,1600 PO 07/21/17 12:00 A/P Assessment and Plan (1) Frequent falls ICD Code: R29.6 - Repeated falls Status: Acute (2) Dehydration ICD Code: E86.0 - Dehydration (3) A-fib ICD Code: I48.91 - Unspecified atrial fibrillation (4) DM (diabetes mellitus) ICD Code: E11.9 - Type 2 diabetes mellitus without complications Assessment and Plan A/P: 1. Falls: Frequent. Likely multifactorial, secondary to deconditioning, peripheral neuropathy, and possible early Parkinson's Disease. the patient lives alone and will need placement, asked for PT, and nurse outreach case manager, CT brain with possible small old left infarct in the white matter, spreading out to the cortex, CT Cervical spine negative for fracture in May, Long history of alcoholism, Stroke with Dysarthria, Right arm symptoms, recommended to continue Xarelto for Atrial Fibrillation. 2. Dehydration: continue IV hydration. 3. DM: Diet controlled, reports peripheral neuropathy. Check Hgb A1c, sliding scale as needed. 4. A-fib: Chronic. Rate controlled. Resume home medications. DVT Prophylaxis: On Xarelto Social work for d/c planning as needed. Discharge Planning Not yet cleared for discharge. Duong Mckeon MD Jul 21, 2017 09:39
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
[2017-07-21] MEDS: CARBIDOPA/LEVODOPA 25 MG/100 MG TAB PO SCH ×2 (12:34→16:41)
[2017-07-21 16:01] LABS: HEMOGLOBIN A1C 5.3 % (4.3-6.0)
[2017-07-21 17:08] LABS: CHOLESTEROL/ HDL RATIO 2.16 RATIO; HDL CHOLESTEROL 49.4 MG/DL (40.0-60.0)
[2017-07-21 17:21] LABS: RHEUMATOID FACTOR SCREEN NEGATIVE (NEGATIVE)
--- NOTE | 2017-07-21 18:33 | EKG ---
Date Performed: 07/20/2017 Time Performed: 16:23:29 PTAGE: 77 years EKG: ATRIAL FIBRILLATION WITH ABERRANT CONDUCTION OR VENTRICULAR PREMATURE COMPLEXES POSSIBLE LE FT VENTRICULAR HYPERTROPHY NONSPECIFIC T-WAVE ABNORMALITY Lead V-6 not available for interpretation. ABNORMAL ECG PREVIOUS TRACING : 06/15/2017 05.21 DOCTOR: Shen Cesar Interpretating Date/Time 07/21/2017 18:31:50
[2017-07-21] MEDS: PRAVASTATIN SOD 80 MG TAB PO SCH (20:59)
--- NOTE | 2017-07-21 21:20 | RADRPT ---
EXAM DATE/TIME: 07/21/2017 17:13 [facility] COMPARISON: No previous studies available for comparison. INDICATIONS : Dizziness. CONTRAST: 14 cc Omniscan (gadodiamide) IV MEDICAL HISTORY : Parkinson's. Hypertension. Diabetes mellitus type 2. AFIB. SURGICAL HISTORY : CABG Heart valve replacement. ENCOUNTER: Initial ACUITY: 1 day PAIN SCORE: 3/10 LOCATION: Bilateral cranial TECHNIQUE: Multiplanar, multisequence MRI of the brain was performed both prior to and following the administrat ion of paramagnetic contrast. FINDINGS: CEREBRUM: Diffuse cerebral atrophy is noted. Innumerable old tiny lacunar infarcts are noted throughout the bas al ganglia bilaterally. No evidence of midline shift, mass lesion, hemorrhage or acute infarction. N o extraaxial fluid collections are seen. There is an empty sella. WHITE MATTER: Mild periventricular and subcortical white matter small vessel ischemic changes are noted bilaterally . POSTERIOR FOSSA: The cerebellum and brainstem are intact. The 4th ventricle is midline. The cerebellopontine angle is unremarkable. The cerebellar tonsils are normal in position. DIFFUSION IMAGING: No focal areas of restricted diffusion are seen. No evidence of acute infarction. EXTRACRANIAL: The visualized portions of the orbits and paranasal sinuses are unremarkable. POST-CONTRAST: No abnormal areas of parenchymal or dural enhancement. No evidence of blood-brain barrier breakdown. CONCLUSION: 1. Diffuse cerebral atrophy. 2. Innumerable old tiny lacunar infarcts within the basal ganglia bilaterally. 3. Mild periventricular and subcortical white matter small vessel ischemic changes bilaterally. 4. No acute infarct, acute hemorrhage, midline shift or extra-axial fluid collections. 5. No enhancing mass identified. 6. Empty sella. Shay Hudson MD on July 21, 2017 at 21:14 Board Certified Radiologist. This report was verified electronically.
[2017-07-22] VITALS (7 sets, daily range): BP systolic 121–148; BP diastolic 9–66; PULSE 57–81; RESP 14–18; TEMP 95.5–96.6; O2SAT 96–99
[2017-07-22] MEDS: ACETAMINOPHEN/HYDROcodone 325 MG/5 MG TAB PO PRN (03:00)
--- NOTE | 2017-07-22 06:02 | MG ---
cc: DIANE DUONG MD Lab No: [id number] Date: 07/21/2017 Age: 77 Sex: M Race: DATE OF 1940 HISTORY A 77-year-old with history of recurrent falls. FINDINGS Posterior rhythm demonstrates 6-8 Hz activity, 20-40 microvolts, low amplitude beta in the frontal channels. Good anterior-posterior gradient. Attenuation slowing of background with transition into drowsy state. Reasonable driving with photic stimulation. Single lead EKG showing sinus rhythm, some rare premature contractions with some irregularity. INTERPRETATION Normal awake and drowsy EEG. Cardiac arrhythmia. Clinical correlation. Diane Duong MD MG/SSB /8:50 PM /5:56 AM
[2017-07-22] MEDS: ISOSORBIDE MONONITRATE 30 MG TAB PO SCH (06:31)
--- NOTE | 2017-07-22 07:18 | HHI.PR ---
Objective Vital Signs Date Time Temp Pulse Resp B/P (MAP) Pulse Ox O2 Delivery O2 Flow Rate FiO2 07/22/17 04:00 96.5 74 15 122/56 (78) 96 07/22/17 00:00 96.5 75 16 129/55 (79) 97 07/21/17 21:22 60 07/21/17 20:00 64 15 133/60 (84) 95 07/21/17 16:00 95.7 64 18 116/56 (76) 100 07/21/17 12:00 95.9 64 18 117/56 (76) 100 07/21/17 08:00 95.1 56 18 110/53 (72) 100 I/O 07/21/17 07/21/17 07/21/17 07/22/17 07/22/17 07/22/17 07:00 15:00 23:00 07:00 15:00 23:00 Intake Total 120 ml Balance 120 ml Intake Oral 120 ml # Voids 1 3 # Bowel Movements 0 Result Diagram: 07/21/17 0445 07/21/17 0445 Procedures None Objective Remarks awake alert speech same deonna gait not better moves all well Assessment and Plan Assessment and Plan imp mri neg new vents a little big but cw atrophy eeg nl labs ok standing bp not done plan continue sinemet check standing bp and if ok could go to rehab and fu office i will check cva Adolfo Mckeon MD Jul 22, 2017 07:18
[2017-07-22] MEDS: CARBIDOPA/LEVODOPA 25 MG/100 MG TAB PO SCH ×3 (08:00→15:57)
[2017-07-22] MEDS: CLOPIDOGREL 75 MG TAB PO SCH (08:48)
[2017-07-22] MEDS: RANOLAZINE 500 MG EXTENDED RELEASE TAB PO SCH ×2 (08:48→20:49)
[2017-07-22] MEDS: DOCUSATE SODIUM 50 MG/SENNA 8.6 MG TAB PO SCH ×2 (08:48→20:49)
[2017-07-22] MEDS: RIVAROXABAN 15 MG TAB PO SCH (08:48)
[2017-07-22] MEDS: SENNOSIDES 8.6 MG TAB PO PRN (08:49)
[2017-07-22] MEDS: METOPROLOL TARTRATE 25 MG TAB PO SCH (08:49)
[2017-07-22] MEDS: FUROSEMIDE 20 MG TAB PO SCH (08:49)
[2017-07-22] MEDS: SODIUM CHLOR 0.9% 1000 ML INJ 1,000 ML IV SCH ×3 (08:50→20:50)
[2017-07-22] MEDS: MAGNESIUM HYDROXIDE SUSP 30 ML CUP PO PRN (08:50)
[2017-07-22] MEDS: LACTULOSE SYRUP 20 GM/30 ML CUP PO PRN (08:50)
[2017-07-22] MEDS: SODIUM CHLORIDE 0.9% FLUSH 10 ML FLUSH IV FLUSH SCH ×2 (08:54→20:50)
--- NOTE | 2017-07-22 18:23 | HHI.PR ---
Subjective Remarks This is a pleasant 77 y/o male with Hypertensin, Atrial Fibrillation on Xarelto , CHF echocardiogram 05/27/17 EF 45-50%, DM II, CVA by history, brought in to ER bu EMS after Fall, Pt states he's had recurrent falls since being discharged from Rehab in May. Previous admit 06/16-06/19/17 for c/o right shoulder pain after fall, found to have acromioclavicular separation, s/p eval by Ortho, no surgical intervention needed. Sent to Rehab after hospitalization , now d/c'd home from Rehab. Lives alone, ambulates w/ walker. Reports multiple falls since that time, fall yesterday and another fall today. Denies LOC or head trauma. Does note right shoulder pain, 6/10, intermittent, worse w/ movement. BP 136/61, HR 58, O2 sat 99% on RA, Afebrile. CBC essentially at baseline. History unremarkable except for BUN 24. GFR 61. Troponin negative. INR 1.4. UA negative. CT Head with no acute findings. 07/21: Seen in his bedroom, discussed with nurse Miss Deras, he is been consulted to neurology specialist Doctor Adolfo Alvarenga, he has long history of alcoholism, Stroke with some right arm symptoms and dysarthria, started on Sinemet, Asked for MRI of the brain, EEG, additional blood work, Asked for thoracic and Lumbosacral x rays to rule out fractures. 07/22: Patient stable discussed with him, nurse Miss Núñez and with External Grinder Tender , as per Neurology MRI negative, EEG negative recommended to continue Sinemet and follow blood pressure rehab management on discharge, no nausea, vomit or diarrhea as per manager gas probable to arrange for tomorrow discharge to SNF. Objective Vital Signs Date Time Temp Pulse Resp B/P (MAP) Pulse Ox O2 Delivery O2 Flow Rate FiO2 07/22/17 15:53 95.5 67 17 122/9 (46) 98 07/22/17 11:25 96.0 69 18 129/60 (83) 99 07/22/17 11:25 Room Air 07/22/17 08:55 Room Air 07/22/17 08:00 96.6 81 17 148/66 (93) 99 07/22/17 04:00 96.5 74 15 122/56 (78) 96 1/30/18 00:00 96.5 75 16 129/55 (79) 97 07/21/17 21:22 60 07/21/17 20:00 64 15 133/60 (84) 95 I/O 07/21/17 07/21/17 07/21/17 07/22/17 07/22/17 07/22/17 07:00 15:00 23:00 07:00 15:00 23:00 Intake Total 120 ml Balance 120 ml Intake Oral 120 ml # Voids 1 3 # Bowel Movements 0 Result Diagram: 07/21/17 0445 07/21/17 0445 Imaging Last Impressions Brain MRI 07/21/17 0912 Signed Impressions: Service Date/Time: Friday, July 21, 2017 17:13 - CONCLUSION: 1. Diffuse cerebral atrophy. 2. Innumerable old tiny lacunar infarcts within the basal ganglia bilaterally. 3. Mild periventricular and subcortical white matter small vessel ischemic changes bilaterally. 4. No acute infarct, acute hemorrhage, midline shift or extra-axial fluid collections. 5. No enhancing mass identified. 6. Empty sella. Shay Hudson MD Head CT 07/20/17 1543 Signed Impressions: Service Date/Time: Thursday, July 20, 2017 16:41 - CONCLUSION: Age-related findings. No acute intracranial findings. Guzman Nicholas MD Procedures None Other Results Laboratory Tests Test 07/20/17 16:00 07/20/17 17:35 07/21/17 04:45 07/21/17 16:06 Urine Color YELLOW Urine Turbidity CLEAR Urine pH 5.0 Urine Specific [place] 1.009 Urine Protein NEG mg/dL Urine Glucose (UA) NEG mg/dL Urine Ketones NEG mg/dL Urine Occult Blood NEG Urine Nitrite NEG Urine Bilirubin NEG Urine Urobilinogen LESS THAN 2.0 MG/DL Urine Leukocyte Esterase NEG Urine RBC 1 /hpf Urine WBC 1 /hpf Microscopic Urinalysis Comment CATH-CULT NOT IND Activated Partial Thromboplast Time 33.7 SEC Lactic Acid Level 0.9 mmol/L Ammonia LESS THAN 10 MCMOL/L Total Creatine Kinase 82 U/L Troponin I LESS THAN 0.02 NG/ML Thyroid Stimulating Hormone 3rd Gen 0.782 uIU/ML White Blood Count 4.9 TH/MM3 Red Blood Count 2.93 MIL/MM3 Hemoglobin 9.2 GM/DL Hematocrit 27.0 % Mean Corpuscular Volume 92.2 FL Mean Corpuscular Hemoglobin 31.5 PG Mean Corpuscular Hemoglobin Concent 34.2 % Red Cell Distribution Width 14.1 % Platelet Count 193 TH/MM3 Mean Platelet Volume 8.9 FL Neutrophils (%) (Auto) 59.2 % Lymphocytes (%) (Auto) 26.0 % Monocytes (%) (Auto) 10.2 % Eosinophils (%) (Auto) 3.9 % Basophils (%) (Auto) 0.7 % Neutrophils # (Auto) 2.9 TH/MM3 Lymphocytes # (Auto) 1.3 TH/MM3 Monocytes # (Auto) 0.5 TH/MM3 Eosinophils # (Auto) 0.2 TH/MM3 Basophils # (Auto) 0.0 TH/MM3 CBC Comment DIFF FINAL Differential Comment Prothrombin Time 12.8 SEC Prothromb Time International Ratio 1.3 RATIO Blood Urea Nitrogen 21 MG/DL Creatinine 1.00 MG/DL Random Glucose 90 MG/DL Total Protein 5.7 GM/DL Albumin 2.9 GM/DL Calcium Level 8.1 MG/DL Alkaline Phosphatase 62 U/L Aspartate Amino Transf (AST/SGOT) 17 U/L Alanine Aminotransferase (ALT/SGPT) 12 U/L Total Bilirubin 0.6 MG/DL Sodium Level 139 MEQ/L Potassium Level 3.6 MEQ/L Chloride Level 105 MEQ/L Carbon Dioxide Level 27.0 MEQ/L Anion Gap 7 MEQ/L Estimat Glomerular Filtration Rate 72 ML/MIN Hemoglobin A1c 5.3 % Vitamin B12 Level 551 PG/ML Folate 18.2 NG/ML Triglycerides Level 38 MG/DL Cholesterol Level 107 MG/DL LDL Cholesterol 50 MG/DL HDL Cholesterol 49.4 MG/DL Cholesterol/HDL Ratio 2.16 RATIO Rheumatoid Factor Screen NEGATIVE Rheumatoid Factor Titer IU/ML Rapid Plasma Reagin NON-REACTIVE Test 07/22/17 11:50 Nasal Screen MRSA (PCR) NEGATIVE Staphylococcus aureus (PCR)(LAB) NEGATIVE Objective Remarks GENERAL: No acute distress. HEENT: PERRLA, EOMI. No scleral icterus or conjunctival pallor. No lid lag or facial droop. CARDIOVASCULAR: Irreguarly irregular, in A-fib, rate controlled. No obvious murmurs to auscultation. No chest tenderness to palpation. RESPIRATORY: No obvious rhonchi or wheezing. Clear to auscultation. Breath sounds equal bilaterally. GASTROINTESTINAL: Abdomen soft, non-tender, nondistended. BS normal. MUSCULOSKELETAL: Extremities without clubbing, cyanosis, or edema. No obvious deformities. Right shoulder w/ no tenderness to palpation NEUROLOGICAL: Awake, alert and oriented x4. No focal neurologic deficits. Moving both upper and lower extremities spontaneously. Medications and IVs Current Medications Medications (Trade) Dose Ordered Sig/Mark Route Start Time Stop Time Status Last Admin (NS Flush) 2 ml UNSCH PRN IV FLUSH 07/20/17 15:45 Sodium Chloride 1,000 ml @ 75 mls/hr [id number] IV 07/20/17 19:22 07/22/17 08:50 (NS Flush) 2 ml UNSCH PRN IV FLUSH 07/20/17 19:30 (NS Flush) 2 ml BID IV FLUSH 07/20/17 21:00 (Zofran Inj) 4 mg Q6H PRN IVP 07/20/17 19:30 (Tylenol) 650 mg Q6H PRN PO 07/20/17 19:30 (Wayne 5-325 Mg) 1 tab Q4H PRN PO 07/20/17 19:30 07/22/17 03:00 (Morphine Inj) 2 mg Q3H PRN IV PUSH 07/20/17 19:30 (Ilda-Colace) 1 tab BID PO 07/20/17 21:00 07/22/17 08:48 (Milk Of Magnesia Liq) 30 ml Q12H PRN PO 07/20/17 19:30 07/22/17 08:50 (Senokot) 17.2 mg Q12H PRN PO 07/20/17 19:30 07/22/17 08:49 (Dulcolax Supp) 10 mg DAILY PRN RECTAL 07/20/17 19:30 (Lactulose Liq) 30 ml DAILY PRN PO 07/20/17 19:30 07/22/17 08:50 (Plavix) 75 mg DAILY PO 07/21/17 09:00 07/22/17 08:48 (Lasix) 20 mg DAILY PO 07/21/17 09:00 07/22/17 08:49 (Imdur) 30 mg DAILY@07 PO 07/21/17 07:00 07/22/17 06:31 (Ranexa) 1,000 mg Q12HR PO 07/20/17 21:00 07/22/17 08:48 (Xarelto) 15 mg DAILY PO 07/21/17 09:00 07/22/17 08:48 (Pravachol) 80 mg HS PO 07/20/17 21:00 07/21/17 20:59 Sodium Chloride 1,000 ml @ 75 mls/hr [id number] IV 07/21/17 09:12 (Sinemet 25-100 Mg) 1 tab TID@0800,1200,1600 PO 07/21/17 12:00 07/22/17 15:57 (Lopressor) 12.5 mg DAILY PO 07/22/17 09:00 07/22/17 08:49 A/P Assessment and Plan (1) Frequent falls ICD Code: R29.6 - Repeated falls Status: Acute (2) Dehydration ICD Code: E86.0 - Dehydration (3) A-fib ICD Code: I48.91 - Unspecified atrial fibrillation (4) DM (diabetes mellitus) ICD Code: E11.9 - Type 2 diabetes mellitus without complications Assessment and Plan A/P: 1. Falls: Frequent. Likely multifactorial, secondary to deconditioning, peripheral neuropathy, and possible early Parkinson's Disease. the patient lives alone and will need placement, asked for PT, and oil field caser, CT brain with possible small old left infarct in the white matter, spreading out to the cortex, CT Cervical spine negative for fracture in May, Long history of alcoholism, Stroke with Dysarthria, Right arm symptoms, recommended to continue Xarelto for Atrial Fibrillation. EEG negative, MRI no acute Stroke, okay to discharge once arranged for SNF. given Sinemet by Neurology specialist. 2. Dehydration: Improved. 3. DM: ruled out Hemoglobin A1C 5.3 4. A-fib: Chronic. Rate controlled. continue Xarelto, Beta Tiffanie. DVT Prophylaxis: On Xarelto Social work for d/c planning as needed. Discharge Planning Expected for tomorrow. Duong Mckeon MD Jul 22, 2017 18:23
[2017-07-22] MEDS: PRAVASTATIN SOD 80 MG TAB PO SCH (20:49)
[2017-07-23] VITALS (8 sets, daily range): BP systolic 110–146; BP diastolic 52–67; PULSE 59–79; RESP 16–18; TEMP 95.4–96.8; O2SAT 96–100
[2017-07-23] MEDS: SODIUM CHLOR 0.9% 1000 ML INJ 1,000 ML IV SCH ×3 (01:12→19:25)
[2017-07-23] MEDS: ISOSORBIDE MONONITRATE 30 MG TAB PO SCH (07:00)
--- NOTE | 2017-07-23 07:02 | HHI.PR ---
Objective Vital Signs Date Time Temp Pulse Resp B/P (MAP) Pulse Ox O2 Delivery O2 Flow Rate FiO2 07/23/17 04:00 96.7 79 16 136/67 (90) 97 07/23/17 00:00 96.8 78 16 129/67 (87) 98 07/22/17 20:00 95.7 60 14 121/58 (79) 99 07/22/17 19:16 57 07/22/17 15:53 95.5 67 17 122/9 (46) 98 07/22/17 11:25 96.0 69 18 129/60 (83) 99 07/22/17 11:25 Room Air 07/22/17 08:55 Room Air 07/22/17 08:00 96.6 81 17 148/66 (93) 99 I/O 07/22/17 07/22/17 07/22/17 07/23/17 07/23/17 07/23/17 07:00 15:00 23:00 07:00 15:00 23:00 Intake Total 4180 ml 600 ml Output Total 850 ml Balance 3330 ml 600 ml Intake Oral 800 ml 600 ml IV Total 3380 ml Output Urine Total 850 ml # Voids 3 # Bowel Movements 0 Result Diagram: 07/21/17 0445 07/21/17 0445 Procedures None Objective Remarks awake alert speech same walked down [place] taking bigger steps he states Assessment and Plan Assessment and Plan imp mri neg new vents a little big but cw atrophy eeg nl labs ok standing bp not done still plan continue sinemet check standing bp and if ok could go to rehab and fu office check us carotid i will be out of town [facility] this up no [facility] in last yr Adolfo Quiñonez MD Jul 23, 2017 07:02
[2017-07-23] MEDS: MAGNESIUM HYDROXIDE SUSP 30 ML CUP PO PRN ×2 (07:10→08:11)
[2017-07-23] MEDS: FUROSEMIDE 20 MG TAB PO SCH (08:11)
[2017-07-23] MEDS: CARBIDOPA/LEVODOPA 25 MG/100 MG TAB PO SCH ×3 (08:11→15:18)
[2017-07-23] MEDS: METOPROLOL TARTRATE 25 MG TAB PO SCH (08:11)
[2017-07-23] MEDS: LACTULOSE SYRUP 20 GM/30 ML CUP PO PRN (08:11)
[2017-07-23] MEDS: SENNOSIDES 8.6 MG TAB PO PRN (08:11)
[2017-07-23] MEDS: DOCUSATE SODIUM 50 MG/SENNA 8.6 MG TAB PO SCH ×2 (08:11→19:30)
[2017-07-23] MEDS: RANOLAZINE 500 MG EXTENDED RELEASE TAB PO SCH ×2 (08:11→19:30)
[2017-07-23] MEDS: RIVAROXABAN 15 MG TAB PO SCH (08:12)
[2017-07-23] MEDS: CLOPIDOGREL 75 MG TAB PO SCH (08:12)
[2017-07-23] MEDS: SODIUM CHLORIDE 0.9% FLUSH 10 ML FLUSH IV FLUSH SCH ×2 (08:12→19:30)
[2017-07-23] MEDS ORDERED: Carbidopa-Levodopa 25-100 Mg PO (09:14)
[2017-07-23] MEDS ORDERED: METO25TA3 PO (09:14)
--- NOTE | 2017-07-23 11:03 | RADRPT ---
EXAM DATE/TIME: 07/23/2017 08:31 [facility] COMPARISON: No previous studies available for comparison. [facility], CTA carotid arteries, May 28, 2016 INDICATIONS : Cerebrovascular accident. MEDICAL HISTORY : Cerebrovascular disease. Hypercholesterolemia. Parkinsons. CVA. Hypertension. CAD. Anticoagulant. AFIB. Hypertension. GERD. Diabetes. SURGICAL HISTORY : CABG. Cardiac stents. Valve replacement. ENCOUNTER: Initial ACUITY: 1 day PAIN SCORE: 2/10 LOCATION: Bilateral neck PEAK SYSTOLIC VELOCITIES (cm/sec): ICA/CCA RATIO: Right: 1.3 Left: 1.3 ICA: Right: 108 Left: 111 CCA: Right: 81 Left: 87 ECA: Right: 167 Left: 162 VERTEBRAL: Right: 44 antegrade Left: 52 antegrade Elevated flow velocities and ICA/CCA ratios have been found to correlate with increased degrees of vessel stenosis, calculated as percentage of diameter relative to a normal segment of distal ICA/CCA FINDINGS: RIGHT CAROTID: No significant stenosis is visualized. Moderate plaque is present in the common carotid artery and bu lb with posterior shadowing. The waveforms are within normal limits. LEFT CAROTID: No significant stenosis is visualized. Mild to moderate plaque is present the carotid bulb and proxim al internal and external carotid arteries. The waveforms are within normal limits. VERTEBRAL ARTERIES: Antegrade flow is seen in both vertebral arteries. MISCELLANEOUS: None. CONCLUSION: 1. Mild to moderate bilateral plaquing with less than 40% diameter stenosis by velocity criteria. 2. Antegrade flow in both vertebral arteries. 3. Elevated velocities in the external carotid arteries bilaterally. René Mayberry MD on July 23, 2017 at 10:58 Board Certified Radiologist. This report was verified electronically.
--- NOTE | 2017-07-23 15:30 | HHI.DS ---
Discharge Summary Admission Date Jul 20, 2017 at 19:30 Discharge Date: Jul 23, 2017 Admitting Diagnosis (1) Frequent falls ICD Code: R29.6 - Repeated falls Diagnosis: Principal Status: Acute (2) Dehydration ICD Code: E86.0 - Dehydration Diagnosis: Secondary (3) A-fib ICD Code: I48.91 - Unspecified atrial fibrillation Diagnosis: Secondary (4) DM (diabetes mellitus) ICD Code: E11.9 - Type 2 diabetes mellitus without complications Diagnosis: Secondary Procedures none Brief History - From Admission This is a 77-year-old male with PMH of HTN, A. fib on Xarelto, CHF (Echo w/ EF 45-50%), DM, h/o CVA who was brought to the ER by EMS after fall. Pt states he's had recurrent falls since being discharged from Rehab in May. Previous admit 06/16-06/19/17 for c/o right shoulder pain after fall, found to have acromioclavicular separation, s/p eval by Ortho, no surgical intervention needed. Sent to Rehab after hospitalization, now d/c'd home from Rehab. Lives alone, ambulates w/ walker. Reports multiple falls since that time, fall yesterday and another fall today. Denies LOC or head trauma. Does note right shoulder pain, 6/10, intermittent, worse w/ movement. BP 136/61, HR 58, O2 sat 99% on RA, Afebrile. CBC essentially at baseline. History unremarkable except for BUN 24. GFR 61. Troponin negative. INR 1.4. UA negative. CT Head with no acute findings. CBC/BMP: 07/21/17 0445 07/21/17 0445 Significant Findings Laboratory Tests Test 07/20/17 16:00 07/20/17 17:35 07/21/17 04:45 07/21/17 16:06 Red Blood Count 3.21 MIL/MM3 (4.50-5.90) 2.93 MIL/MM3 (4.50-5.90) Hemoglobin 9.9 GM/DL (13.0-17.0) 9.2 GM/DL (13.0-17.0) Hematocrit 29.8 % (39.0-51.0) 27.0 % (39.0-51.0) Neutrophils (%) (Auto) 81.2 % (16.0-70.0) Prothrombin Time 14.0 SEC (9.8-11.6) 12.8 SEC (9.8-11.6) Activated Partial Thromboplast Time 33.7 SEC (24.3-30.1) Blood Urea Nitrogen 24 MG/DL (7-18) 21 MG/DL (7-18) Total Protein 6.1 GM/DL (6.4-8.2) 5.7 GM/DL (6.4-8.2) Estimat Glomerular Filtration Rate 61 ML/MIN (>89) 72 ML/MIN (>89) Ammonia LESS THAN 10 MCMOL/L Troponin I LESS THAN 0.02 NG/ML Monocytes (%) (Auto) 10.2 % (0.0-8.0) Albumin 2.9 GM/DL (3.4-5.0) Calcium Level 8.1 MG/DL (8.5-10.1) Folate 18.2 NG/ML (3.1-17.5) Triglycerides Level 38 MG/DL (42-150) Cholesterol Level 107 MG/DL (120-200) Test 07/22/17 11:50 07/22/17 21:00 Hospital Course Mr. Albarran is a 77-year-old male. He was admitted secondary to recurrent falls at home. Recurrent falls and weakness have been monitored and are not significantly improving. He is recommended to continue physical therapy at a [facility] facility. Patient is medically clear for discharge to [facility] facility. Metoprolol was decreased while here. He was also started on Sinemet. Pt Condition on Discharge: Stable Discharge Disposition: Discharge to SNF Discharge Time: > 30 minutes Discharge Instructions DIET: Follow Instructions for: As Tolerated, No Restrictions Activities you can perform: Regular-No Restrictions Follow up Referrals: PCP Follow-up - 2 Weeks New Medications: Metoprolol Tartrate (Metoprolol Tartrate) 25 Mg Tab 12.5 MG PO DAILY for Blood Pressure Management, #30 TAB [Carbidopa-Levodopa 25-100 Mg] () 1 TAB TAB 1 TAB PO TID@0800,1200,1600 for Parkinson, #90 TAB Continued Medications: Cholecalciferol (Vitamin D3) 1,000 Unit Tab 400 UNITS PO DAILY for Nutritional Supplement, #1 BOTTLE 0 Refills Clopidogrel (Plavix) 75 Mg Tab 75 MG PO DAILY for Blood Clot Prevention, #30 TAB 0 Refills Furosemide (Furosemide) 20 Mg Tab 20 MG PO DAILY, #30 TAB Isosorbide Mononitrate ER (Isosorbide Mononitrate ER) 30 Mg Alanna 30 MG PO DAILY@07 for Chest Pain, #30 TAB Ranolazine ER 12 HR (Ranexa ER 12 HR) 500 Mg Tab 1000 MG PO Q12HR for Chest Pain, #60 TAB Rivaroxaban (Xarelto) 15 Mg Tab 15 MG PO DAILY, #30 TAB Simvastatin (Simvastatin) 40 Mg Tab 40 MG PO HS for Cholesterol Management, #30 TAB 0 Refills Discontinued Medications: Metoprolol Tartrate (Metoprolol Tartrate) 25 Mg Tab 25 MG PO DAILY, #30 TAB 0 Refills Vern Galo MD Jul 23, 2017 15:30
[2017-07-23 16:50] LABS: ANA SCREEN NEG (NEG)
[2017-07-23] MEDS: PRAVASTATIN SOD 80 MG TAB PO SCH (19:30)
[2017-07-24] VITALS (7 sets, daily range): BP systolic 118–141; BP diastolic 56–66; PULSE 61–76; RESP 17–18; TEMP 95.2–97.2; O2SAT 99–100
[2017-07-24] MEDS: ISOSORBIDE MONONITRATE 30 MG TAB PO SCH (06:10)
[2017-07-24] MEDS: SODIUM CHLORIDE 0.9% FLUSH 10 ML FLUSH IV FLUSH SCH (09:00)
[2017-07-24] MEDS: CLOPIDOGREL 75 MG TAB PO SCH (09:39)
[2017-07-24] MEDS: RIVAROXABAN 15 MG TAB PO SCH (09:39)
[2017-07-24] MEDS: DOCUSATE SODIUM 50 MG/SENNA 8.6 MG TAB PO SCH (09:39)
[2017-07-24] MEDS: RANOLAZINE 500 MG EXTENDED RELEASE TAB PO SCH (09:39)
[2017-07-24] MEDS: METOPROLOL TARTRATE 25 MG TAB PO SCH (09:40)
[2017-07-24] MEDS: FUROSEMIDE 20 MG TAB PO SCH (09:40)
[2017-07-24] MEDS: CARBIDOPA/LEVODOPA 25 MG/100 MG TAB PO SCH (09:42)
--- NOTE | 2017-07-24 11:37 | HHI.PR ---
Subjective Remarks Patient cleared for discharge yesterday. care home facility arrangements have been made and patient should transition to [facility] facility today. No complaints. Objective Vital Signs Date Time Temp Pulse Resp B/P (MAP) Pulse Ox O2 Delivery O2 Flow Rate FiO2 07/24/17 08:00 62 134/60 (84) 119/56 (77) 132/62 (85) 07/24/17 07:51 97.2 61 17 139/62 (87) 99 07/24/17 04:45 97.1 65 18 118/57 (77) 99 07/24/17 04:05 73 07/24/17 01:20 95.2 64 18 134/60 (84) 100 07/24/17 00:00 68 07/23/17 20:13 96.7 69 18 146/67 (93) 100 136/63 (87) 110/52 (71) 07/23/17 20:00 59 07/23/17 15:17 95.4 63 17 127/61 (83) 100 07/23/17 12:00 65 18 121/59 (79) 100 I/O 07/23/17 07/23/17 07/23/17 07/24/17 07/24/17 07/24/17 07:00 15:00 23:00 07:00 15:00 23:00 Intake Total 600 ml 480 ml Output Total 200 ml Balance 600 ml 480 ml -200 ml Intake Oral 600 ml 480 ml Output Urine Total 200 ml # Voids 3 3 2 1 # Bowel Movements 1 Result Diagram: 07/21/175 07/21/175 Procedures None A/P Problem List: (1) Frequent falls ICD Code: R29.6 - Repeated falls Status: Acute Assessment and Plan 77-year-old male admitted secondary to frequent falls. Frequent falls Discharge planning Discharge to [facility] facility for continuation of physical therapy until patient strength improves enough to return to home Vern Galo MD Jul 24, 2017 11:36
[2017-07-24 11:50] LABS: METHYLMALONIC ACID 0.25 nmol/mL (<=0.40)
== END 2017-07-24 11:58 ==
LOC: NEDAMB 14:20 → NEDA 19:30 → INTOOBSV 19:30 → N06A 20:33
PROVIDERS: ADMIT Hospitalist; ATTEND Hospitalist
DX: G20 Parkinson's disease (principal); R29.6 Repeated falls; S42.121D Displaced fracture of acromial process, right shoulder, subsequent encounter for fracture with routine healing; S20.229D Contusion of unspecified back wall of thorax, subsequent encounter; E86.0 Dehydration; I48.2 Chronic atrial fibrillation; E11.42 Type 2 diabetes mellitus with diabetic polyneuropathy; I69.322 Dysarthria following cerebral infarction; I11.0 Hypertensive heart disease with heart failure; I50.9 Heart failure, unspecified; I25.10 Atherosclerotic heart disease of native coronary artery without angina pectoris; R07.9 Chest pain, unspecified; E78.00 Pure hypercholesterolemia, unspecified; K70.9 Alcoholic liver disease, unspecified; Z95.1 Presence of aortocoronary bypass graft; Z95.2 Presence of prosthetic heart valve
CPT/HCPCS: 70450; 70553; 80053; 80061; 81001; 82140; 82550; 82607; 82746; 83036; 83605; 83921; 84425; 84443; 84484; 85025; 85610; 85730; 86038; 86430; 86592; 87640; 87641; 93005; 93880; 95819; 96360; 96361; 97110; 97116; 97162; 99285; A9579; G0378; G8987; G8988; J7030